=== PATIENT | female | born 1970 | race American Indian/Alaskan Native ===

== ENCOUNTER 2017-01-07 07:40 | Inpatient (IN) | payer MEDICAID ==
[2017-01-07 07:40] VITALS: BMI 17.2
[2017-01-07] MEDS ORDERED: Sodium Chloride 0.9% 1,000 ML IV ONE ×2 (07:57→10:46)
[2017-01-07] MEDS ORDERED: Sodium Chloride 0.9% 1,000 ML ONE ×3 (08:06→12:54)
--- NOTE | 2017-01-07 08:26 | C.PDOC ---
History Of Present Illness 46-year-old female PMHx includes Anemia, Arthritis, CVA, Dementia, Depression, Hypertension, Sickle Cell Disease sent to the emergency department from care home with complaints of severe pain, that begins in abdominal area. Patient notes that pain is similar to her prior sickle cell crises. She denies shortness of breath, nausea/vomiting, diarrhea, fever, cough, chest pain. Time Seen by Provider: 01/07/17 07:46 Chief Complaint (Nursing): Pain, Chronic History Per: Patient History/Exam Limitations: no limitations Current Symptoms Are (Timing): Still Present Severity: Severe Past Medical History Reviewed: Historical Data, Nursing Documentation, Vital Signs Vital Signs: Last Vital Signs Temp 98.2 F 01/09/17 16:00 Pulse 136 H 01/09/17 19:30 Resp 22 01/09/17 19:30 BP 96/63 L 01/09/17 19:20 Pulse Ox 100 01/09/17 21:00 - Medical History PMH: Anemia, Arthritis, CVA, Dementia, Depression, HTN, Pneumonia, Sickle Cell Disease - [facility] Procedures INSERTION OF INFUSION DEVICE INTO R ATRIUM, PERC APPROACH (05/24/16) TRANSFUSE NONAUT RED BLOOD CELLS IN PERIPH VEIN, PERC (05/24/16) ULTRASONOGRAPHY OF RIGHT HEART (05/24/16) Family History: States: No Known Family Hx - Social History Hx Alcohol Use: No Hx Substance Use: No Review Of Systems Except As Marked, All Systems Reviewed And Found Negative. Constitutional: Positive for: Malaise, Other (diffuse body pain). Negative for : Fever, Chills Cardiovascular: Negative for: Chest Pain, Palpitations Respiratory: Negative for: Cough, Shortness of Breath Gastrointestinal: Positive for: Abdominal Pain. Negative for: Nausea, Vomiting , Diarrhea Musculoskeletal: Negative for: Neck Pain, Back Pain Skin: Negative for: Rash Neurological: Negative for: Weakness, Numbness, Headache, Dizziness Physical Exam - Physical Exam Appears: Non-toxic, In Acute Distress (in moderate to severe pain), Chronically Ill, Other (Tearful) Skin: Warm, Dry, No Rash Head: Normacephalic Eye(s): bilateral: Normal Inspection Oral Mucosa: Moist Neck: Normal, Normal ROM Cardiovascular: Rhythm Regular Respiratory: Normal Breath Sounds, No Rales, No Rhonchi, No Wheezing Gastrointestinal/Abdominal: Bowel Sounds, Soft, Tenderness (Mild, diffuse TTP, ( -) Segura's, (-) McBurney's), No Guarding, No Rebound Back: Normal Inspection, No CVA Tenderness Extremity: Normal ROM, No Pedal Edema, No Calf Tenderness, No Deformity Extremity: Bilateral: Atraumatic Pulses: Left Dorsalis Pedis: Normal, Right Dorsalis Pedis: Normal Neurological/Psych: Oriented x3 ED Course And Treatment - Laboratory Results Result Diagrams: 01/09/17 07:47 01/09/17 07:47 ECG: Interpreted By Me, Viewed By Me (sinus rhythm 98 bpm with PACs, normal axis , no acute ST/T wave changes) ECG Interpretation: No Acute Changes O2 Sat by Pulse Oximetry: 100 (RA) Pulse Ox Interpretation: Normal - Radiology CXR: Interpreted by Me, Viewed By Me (no infiltrates/effusions) CXR Interpretation: Yes: No Acute Disease Progress Note: Blood work, EKG, CXR and urine/urine preg ordered and reviewed. Patient given IV NS bolus, PO meds per sickle cell protocol - Dilaudid + benadryl. Multiple attempts made at IV access by me, B/L EJs attempted unasuccessfully. PICC line order entered. Blood drawn by m via arterial stick. Reevaluation Time: 10:20 Reassessment Condition: Unchanged (On reassessment, patient still in significant pain, IV Dilaudid + IV benadryl ordered.) - Physician Consult Information Physician Contacted: Anitha Daugherty Outcome Of Conversation: Discussed patient with PMD, he agrees with admission for sickle cell crisis/severe pain. Critical Care Time - Critical Care Note Total Time (in mins): 35 Documented critical care: time excludes all time spent performing seperately billable procedures. Disposition - Disposition Disposition: HOSPITALIZED Disposition Time: 10:24 Condition: FAIR - Clinical Impression Clinical Impression: Sickle cell pain crisis, Sickle cell disease - Scribe Statement The provider has reviewed the documentation as recorded by the Amy Villarreal All medical record entries made by the Omeroibjose were at my direction and personally dictated by me. I have reviewed the chart and agree that the record accurately reflects my personal performance of the history, physical exam, medical decision making, and the department course for this patient. I have also personally directed, reviewed, and agree with the discharge instructions and disposition. Decision To Admit - Pt Status Changed To: Hospital Disposition Of: Inpatient - Admit Certification Admit to Inpatient:: After my assessment, the patient will require hospitalization for at least two midnights. This is because of the severity of symptoms shown, intensity of services needed, and/or the medical risk in this patient being treated as an outpatient. - InPatient: Physician Admission Certification: I certify that this patient requires 2 or more midnights of care for the following reason:: see notes - . Bed Request Type: Regular Admitting Physician: Anitha Daugherty Patient Diagnosis: Sickle cell pain crisis, Sickle cell disease
[2017-01-07 08:52] LABS: HEMATOCRIT 28.6 % (34.0-47.0); MEAN CORPUSCULAR HEMOGLOBIN 23.4 pg (27.0-31.0); MEAN CORPUSCULAR HGB CONC 31.2 g/dL (33.0-37.0); MEAN PLATELET VOLUME 8.3 fL (7.2-11.7); RED CELL DISTRIBUTION WIDTH 21.6 % (11.5-14.5); WHITE BLOOD COUNT 18.8 K/uL (4.8-10.8)
--- NOTE | 2017-01-07 08:58 | RAD ---
PROCEDURE: CHEST RADIOGRAPH, 1 VIEW HISTORY: Pain COMPARISON: 05/24/2016. FINDINGS: LUNGS: The lungs are clear. PLEURA: No pneumothorax or pleural fluid seen. CARDIOVASCULAR: Normal. OSSEOUS STRUCTURES: There is severe degenerative osteoarthrosis in both glenohumeral joints with large subarticular cystic changes. VISUALIZED UPPER ABDOMEN: Normal. OTHER FINDINGS: None. IMPRESSION: No active pulmonary disease.
[2017-01-07 09:04] LABS: CHLORIDE 105 mmol/L (98-107); POTASSIUM 3.8 mmol/L (3.6-5.2); SODIUM 142 mmol/L (132-148)
[2017-01-07 09:06] LABS: GFR AFRICAN-AMERICAN > 60
[2017-01-07 09:07] LABS: ALKALINE PHOSPHATASE 41 U/L (38-126); ALT/SGPT 113 U/L (9-52); AST/SGOT 69 U/L (14-36); BLOOD UREA NITROGEN 6 mg/dL (7-17); CARBON DIOXIDE 23 mmol/L (22-30); GLUCOSE,RANDOM 122 mg/dL (65-105); TOTAL PROTEIN 8.3 g/dL (6.3-8.3)
[2017-01-07 09:27] LABS: INR 1.1
[2017-01-07 09:43] LABS: EOS # 0.2 K/uL (0.0-0.7); LYMPH # 4.7 K/uL (1.0-4.3); MONO # 1.7 K/uL (0.0-0.8)
[2017-01-07] MEDS ORDERED: DiphenhydrAMINE 50 mg/ml Inj IVP STA ×3 (10:23→15:46)
[2017-01-07] MEDS ORDERED: HYDROmorphone 1 mg/ml ISec IVP STA (10:23)
[2017-01-07] MEDS ORDERED: DiphenhydrAMINE 50 mg/ml Inj ONE (10:25)
[2017-01-07] MEDS ORDERED: Sodium Chloride 0.9% 1,000 ML IV SCH (13:00)
[2017-01-07] MEDS ORDERED: DiphenhydrAMINE 50 mg/ml Inj IVP SCH (16:00)
[2017-01-07] MEDS: DiphenhydrAMINE 50 mg/ml Inj IVP PRN ×2 (16:32→20:35)
[2017-01-07] MEDS ORDERED: Albuterol-Ipratrop 3 mg / 0.5 (3 ml) UD IH PRN (16:49)
[2017-01-07] MEDS: Morphine 30 mg SR Tab PO SCH (17:50)
--- NOTE | 2017-01-07 18:24 | CP.PCM.HP ---
History of Present Illness - History of Present Illness History of Present Illness: 46-year-old female patient with a past medical history of anemia, arthritis, CVA , dementia, hypertension, pneumonia, sickle cell disease sent to the ED from alf with complaint of severe pain, that began in abdominal area. Patient notes that pain is similar to her prior sickle cell crisis. Denies shortness of breath, nausea, vomiting, diarrhea, fever, cough, chest pain. Present on Admission - Present on Admission Any Indicators Present on Admission: No Past Patient History - Past Medical History & Family History Past Medical History?: Yes - Past Social History Smoking Status: Never Smoked - CARDIAC Hx Hypertension: Yes - PULMONARY Hx Pneumonia: Yes - NEUROLOGICAL Hx Dementia: Yes - HEENT Hx HEENT Problems: No - RENAL Hx Chronic Kidney Disease: No - ENDOCRINE/METABOLIC Hx Endocrine Disorders: No - HEMATOLOGICAL/ONCOLOGICAL Hx Anemia: Yes Hx Sickle Cell Disease: Yes - INTEGUMENTARY Hx Dermatological Problems: No - MUSCULOSKELETAL/RHEUMATOLOGICAL Hx Arthritis: Yes - GASTROINTESTINAL Hx Gastrointestinal Disorders: No - GENITOURINARY/GYNECOLOGICAL Hx Genitourinary Disorders: No - PSYCHIATRIC Hx Depression: Yes Hx Substance Use: No - SURGICAL HISTORY Hx Surgeries: Yes Other/Comment: tendon release - ANESTHESIA Hx Anesthesia: Yes Hx Anesthesia Reactions: No Meds Home Medications: Home Medication List Medication Instructions Recorded Confirmed Type Albuterol/Ipratropium [Duoneb 3 3 ml INH RQ6 PRN 01/15/17 Rx mg/0.5 mg (3 ml) UD] Amoxicillin/Clavulanate [Augmentin 1 tab PO Q12H #14 tab 01/15/17 Rx 875 MG-125 MG] Enoxaparin [Lovenox] 40 mg SC DAILY syr 01/15/17 Rx Folic Acid 1 mg PO DAILY tab 01/15/17 Rx HYDROmorphone [Dilaudid] 1 mg IVP Q4H PRN ml 01/15/17 Rx Hydroxyurea [Hydrea] 1,000 mg PO DAILY cap 01/15/17 Rx Pantoprazole [Protonix EC Tab] 40 mg PO DAILY ect 01/15/17 Rx Thiamine [Vitamin B1 Tab] 100 mg PO DAILY tab 01/15/17 Rx fentaNYL 50 mcg/hr [Duragesic 1 patch TD Q72H patch 01/15/17 Rx Patch 50 mcg/hr] Allergies/Adverse Reactions: Allergies Allergy/AdvReac Type Severity Reaction Status Date / Time No Known Allergies Allergy Verified 01/07/17 07:49 Physical Exam - Constitutional Appears: Well - Head Exam Head Exam: ATRAUMATIC, NORMAL INSPECTION, NORMOCEPHALIC - Eye Exam Eye Exam: EOMI, Normal appearance, PERRL Pupil Exam: NORMAL ACCOMODATION, PERRL - ENT Exam ENT Exam: Mucous Membranes Moist, Normal Exam - Neck Exam Neck exam: Positive for: Normal Inspection - Respiratory Exam Respiratory Exam: Decreased Breath Sounds - Cardiovascular Exam Cardiovascular Exam: REGULAR RHYTHM, +S1, +S2 - GI/Abdominal Exam GI & Abdominal Exam: Diminished Bowel Sounds, Soft - Rectal Exam Rectal Exam: Deferred Results - Vital Signs Recent Vital Signs: Last Vital Signs Temp 97.8 F 01/07/17 16:25 Pulse 87 01/07/17 16:25 Resp 20 01/07/17 16:25 BP 128/73 01/07/17 16:25 Pulse Ox 96 01/07/17 16:25 - Labs Result Diagrams: 01/13/17 06:07 01/13/17 06:07 Assessment & Plan (1) Abnormal gamma globulin level Status: Acute (2) Acute chest syndrome due to sickle cell crisis Status: Acute (3) Hip pain Status: Acute (4) Leukocytosis Status: Acute (5) Pneumonia Status: Acute (6) Sickle cell crisis Status: Acute (7) Sickle cell disease Status: Acute (8) Sickle cell pain crisis Status: Acute - Assessment and Plan (Free Text) Plan: Consulting bill collector consulting ID Consultong Route Clerk iv anitbiotics iv pain med folate oxygen saturation watch cbc and monitor pt. closely
[2017-01-07] MEDS: Sodium Chloride 0.9% 1,000 ML IV SCH ×2 (19:30→22:21)
[2017-01-08] MEDS: DiphenhydrAMINE 50 mg/ml Inj IVP PRN ×4 (00:40→13:57)
[2017-01-08] MEDS: Albuterol-Ipratrop 3 mg / 0.5 (3 ml) UD INH SCH ×4 (02:02→19:25)
[2017-01-08] MEDS: Morphine 30 mg SR Tab PO SCH ×2 (06:45→17:41)
[2017-01-08 08:27] LABS: BASO # 0.1 K/uL (0.0-0.2); BASO % 0.7 % (0.0-2.0); EOS % 0.2 % (0.0-4.0); HEMATOCRIT 29.3 % (34.0-47.0); LYMPH # 0.7 K/uL (1.0-4.3); MEAN CORPUSCULAR HEMOGLOBIN 23.1 pg (27.0-31.0); MEAN CORPUSCULAR HGB CONC 30.4 g/dL (33.0-37.0); MEAN PLATELET VOLUME 8.3 fL (7.2-11.7); MONO # 2.2 K/uL (0.0-0.8); MONO % 11.7 % (0.0-10.0); PLATELET COUNT 348 K/uL (130-400); RED CELL DISTRIBUTION WIDTH 22.4 % (11.5-14.5); WHITE BLOOD COUNT 18.4 K/uL (4.8-10.8)
[2017-01-08] MEDS ORDERED: MEMANTINE HCL 14 MG PO SCH (10:00)
[2017-01-08 12:21] LABS: NEUTROPHIL 77 % (50-75); NUCLEATED RED BLOOD CELL 28 % (0-0); TOTAL CELLS COUNTED 100
[2017-01-08] MEDS: Sodium Chloride 0.9% 1,000 ML IV SCH (12:57)
--- NOTE | 2017-01-08 16:29 | CP.PCM.PN ---
Subjective - Date & Time of Evaluation Date of Evaluation: 01/08/17 Time of Evaluation: 13:40 - Subjective Subjective: clinically same Objective - Vital Signs/Intake and Output Vital Signs (last 24 hours): Temp Pulse Resp BP Pulse Ox 98.4 F 100 H 20 120/78 97 01/08/17 08:29 01/08/17 08:29 01/08/17 08:29 01/08/17 08:29 01/08/17 08:29 Intake and Output: 01/08/17 01/08/17 06:59 18:59 Intake Total 1180 Balance 1180 - Medications Medications: Current Medications Albuterol/Ipratropium (Duoneb 3 Mg/0.5 Mg (3 Ml) Ud) 3 ml INH RQ6 [facility] Last Admin: 01/08/17 14:29 Dose: 3 ml Ascorbic Acid (Vitamin C 500 Mg Tab) 500 mg PO DAILY [facility] Last Admin: 01/08/17 09:52 Dose: 500 mg Diphenhydramine HCl (Benadryl) 25 mg IVP Q4 PRN PRN Reason: Itching / Pruritus Last Admin: 01/08/17 13:57 Dose: 25 mg Donepezil HCl (Aricept) 10 mg PO HS [facility] Last Admin: 01/07/17 22:19 Dose: 10 mg Fentanyl (Duragesic) 1 patch TD Q72H [facility] Folic Acid (Folic Acid) 1 mg PO DAILY [facility] Last Admin: 01/08/17 09:52 Dose: 1 mg Hydromorphone HCl (Dilaudid) 3 mg IVP Q4H PRN PRN Reason: Pain, severe (8-10) Last Admin: 01/08/17 13:58 Dose: 3 mg Sodium Chloride (Sodium Chloride 0.9%) 1,000 mls @ 60 mls/hr IV .[id number] [facility] Last Admin: 01/08/17 12:57 Dose: 60 mls/hr Morphine Sulfate (Morphine Extended Release Tab) 60 mg PO Q12H [facility] Last Admin: 01/08/17 06:45 Dose: 60 mg Pneumococcal Polyvalent Vaccine (Pneumovax 23 Vaccine) 0.5 ml IM .ONCE ONE Stop: 01/09/17 10:01 Prednisone (Prednisone Tab) 5 mg PO DAILY [facility] Last Admin: 01/08/17 12:56 Dose: 5 mg Sennosides (Senokot Tab) 8.6 mg PO HS [facility] Last Admin: 01/07/17 22:19 Dose: 8.6 mg - Labs Labs: 01/08/17 07:47 PT 13.0 SECONDS (9.7-12.2) H 01/07/17 09:12 INR 1.1 01/07/17 09:12 APTT 28 SECONDS (21-34) 01/07/17 09:12 - Constitutional Appears: Well - Head Exam Head Exam: ATRAUMATIC, NORMAL INSPECTION, NORMOCEPHALIC - Eye Exam Eye Exam: EOMI, Normal appearance, PERRL Pupil Exam: NORMAL ACCOMODATION, PERRL - ENT Exam ENT Exam: Mucous Membranes Moist, Normal Exam - Neck Exam Neck Exam: Full ROM, Normal Inspection. absent: Lymphadenopathy - Respiratory Exam Respiratory Exam: Decreased Breath Sounds - Cardiovascular Exam Cardiovascular Exam: REGULAR RHYTHM, +S1, +S2 - GI/Abdominal Exam GI & Abdominal Exam: Soft, Diminished Bowel Sounds - Rectal Exam Rectal Exam: Deferred Assessment and Plan - Assessment and Plan (Free Text) Plan: iv pain med folate oxygen saturation watch cbc an dmonotr pt clsely rosy same followupwith consultation s
[2017-01-09] MEDS ORDERED: cefTRIAXone IV 1 gm in Dextros 50 ML IVPB ONE (00:14)
[2017-01-09] MEDS: DiphenhydrAMINE 50 mg/ml Inj IVP PRN ×2 (02:36→06:52)
[2017-01-09] MEDS: Albuterol-Ipratrop 3 mg / 0.5 (3 ml) UD INH SCH ×4 (02:37→19:28)
[2017-01-09] MEDS ORDERED: HYDROmorphone 1 mg/ml ISec IVP STA (06:40)
[2017-01-09] MEDS: Morphine 30 mg SR Tab PO SCH ×2 (06:53→17:53)
--- NOTE | 2017-01-09 07:33 | CP.PCM.PN ---
Addendum entered and electronically signed by Licha Prado DO 01/09/17 10:21 : 1015 rapid response called for second time for tachycardia. BP was 134/83. Patient's HR was 170, sinus rhythm. The patient was given Cardizem 5mg IVP at 1022. Patient was AAOx3 and states that she can't feel her heart racing. Another 2L bolus of NS was started. Retail Sales Consultant was called and accepted patient to ICU at 1023. Another Cardizem 5mg IVP was given at 1025 after the patient's hr did not decrease. At 1026 the patient's HR was 165, not responding to cardizem. BP was 117/82. At 1027 the patient was given cardizem 10mg IVP. ABG stat ordered. Original Note: <Jenny Retana - Last Filed: 01/09/17 08:16> Subjective - Date & Time of Evaluation Date of Evaluation: 01/09/17 Time of Evaluation: 07:20 - Subjective Subjective: Rapid response called for this 46 year old female admitted on 01/06/17 for sick cell crisis for elevated HR. Patient reports she is having chest pain this AM. Patient reports she in not short of breath at this time., Vitals on arrival of ROVING TECHNICIAN team were 119/80, HR 172, O2 96% on NC 3L, Temp 99.4. She was given tylenol at 6:30 am for fever of [address] Danya Daugherty was called overnight for fever and ordered blood cultures which were submitted. After review of yesterday's labs and chart review patient's elevated WBC was noted. CXR was concerning for venous congestions and possible infectious process. During rapid patient was ordered for stat EKG, WILIAM, CXR, CMP, CBC, VBG shock, procalcitonin, and 2 liters of NS bolus. Additional septic workup included UA and Urine cultures. Patient was also ordered for CTA PE protocol being that the patient is tachycardic and she does not ambulate at baseline. However, CTA is contraindicated due to sickle cell crisis, will order V/Q scan since patient is high risk. Patient not on DVT prophylaxis. Will start therapeutic Lovenox as per Dr. Lopez due to patient's high risk. Impression: Sinus tahcycardia likely secondary to sepsis, sickle cell crisis, suspect PE. As per Dr. Lopez, patient to be transfused 1 unit of PRBC. Consent was given by patient who is alert and oriented X3. Patient's Rocephin was discontinued and patient was started on Vanco and Primaxin IVPB stat. Patient was transferred to telemetry for close monitoring. She was also ordered for an additional 2 mg of Dilaudid stat since she was in pain. EKG showed sinus tach [address]pm. [address] reviewed by Dr. Lopez with Lactid Acid of 1.0 and K+ 3.1. Patient's potassium was replaced as per Dr. Lopez. Patient is not acidotic at this time. ID consult is already on board. Will call Dr. Dobbins and Dr. Daugherty to update. f/u 3 hour lactic acid ordered- TIMED for 10:30 pm. Physical: GEN: in no acute distress, but in pain and diaphoretic. Pulm: CTABL. Cardio: Tahcycardia, S1, S2 present Abdomen: soft, NT, ND Extremities: extremities are tender. Ryland Retana, PGY 2 Objective - Vital Signs/Intake and Output Vital Signs (last 24 hours): Temp Pulse Resp BP Pulse Ox 99.4 F 174 H 20 119/80 95 01/09/17 07:24 01/09/17 07:24 01/09/17 07:24 01/09/17 07:24 01/09/17 07:24 - Medications Medications: Current Medications Albuterol/Ipratropium (Duoneb 3 Mg/0.5 Mg (3 Ml) Ud) 3 ml INH RQ6 [facility] Last Admin: 01/09/17 02:37 Dose: Not Given Ascorbic Acid (Vitamin C 500 Mg Tab) 500 mg PO DAILY [facility] Last Admin: 01/08/17 09:52 Dose: 500 mg Diphenhydramine HCl (Benadryl) 25 mg IVP Q4 PRN PRN Reason: Itching / Pruritus Last Admin: 01/09/17 06:52 Dose: 25 mg Donepezil HCl (Aricept) 10 mg PO HS [facility] Last Admin: 01/08/17 21:48 Dose: 10 mg Fentanyl (Duragesic) 1 patch TD Q72H [facility] Last Admin: 01/09/17 07:02 Dose: 1 patch Folic Acid (Folic Acid) 1 mg PO DAILY [facility] Last Admin: 01/08/17 09:52 Dose: 1 mg Hydromorphone HCl (Dilaudid) 3 mg IVP Q4H PRN PRN Reason: Pain, severe (8-10) Last Admin: 01/09/17 06:55 Dose: 3 mg Hydromorphone HCl (Dilaudid) 2 mg IVP STAT STA Stop: 01/09/17 07:31 Sodium Chloride (Sodium Chloride 0.9%) 1,000 mls @ 60 mls/hr IV .[id number] [facility] Last Admin: 01/08/17 12:57 Dose: 60 mls/hr Ceftriaxone Sodium (Rocephin Iv 1 Gm Duplex) 50 mls @ 200 mls/hr IVPB DAILY [facility] Morphine Sulfate (Morphine Extended Release Tab) 60 mg PO Q12H [facility] Last Admin: 01/09/17 06:53 Dose: 60 mg Pneumococcal Polyvalent Vaccine (Pneumovax 23 Vaccine) 0.5 ml IM .ONCE ONE Stop: 01/09/17 10:01 Prednisone (Prednisone Tab) 5 mg PO DAILY [facility] Last Admin: 01/08/17 12:56 Dose: 5 mg Sennosides (Senokot Tab) 8.6 mg PO HS [facility] Last Admin: 01/08/17 21:48 Dose: 8.6 mg - Labs Labs: 01/08/17 07:47 PT 13.0 SECONDS (9.7-12.2) H 01/07/17 09:12 INR 1.1 01/07/17 09:12 APTT 28 SECONDS (21-34) 01/07/17 09:12 <Alexys Lopez H - Last Filed: 01/09/17 16:12> Objective - Vital Signs/Intake and Output Vital Signs (last 24 hours): Temp Pulse Resp BP Pulse Ox 99.6 F 158 H 23 122/69 94 L 01/09/17 11:00 01/09/17 15:00 01/09/17 15:00 01/09/17 15:00 01/09/17 15:00 Intake and Output: 01/09/17 01/09/17 06:59 18:59 Intake Total 2550 Output Total 2400 Balance 150 - Medications Medications: Current Medications Albuterol/Ipratropium (Duoneb 3 Mg/0.5 Mg (3 Ml) Ud) 3 ml INH RQ6 [facility] Last Admin: 01/09/17 13:22 Dose: Not Given Ascorbic Acid (Vitamin C 500 Mg Tab) 500 mg PO DAILY [facility] Last Admin: 01/09/17 13:23 Dose: 500 mg Diltiazem HCl (Cardizem) 5 mg IVP Q5M PRN PRN Reason: Heart rate Diphenhydramine HCl (Benadryl) 25 mg IVP Q4 PRN PRN Reason: Itching / Pruritus Last Admin: 01/09/17 06:52 Dose: 25 mg Donepezil HCl (Aricept) 10 mg PO HS [facility] Last Admin: 01/08/17 21:48 Dose: 10 mg Fentanyl (Duragesic) 1 patch TD Q72H [facility] Last Admin: 01/09/17 07:02 Dose: 1 patch Folic Acid (Folic Acid) 1 mg PO DAILY [facility] Last Admin: 01/09/17 09:55 Dose: Not Given Hydromorphone HCl (Dilaudid) 3 mg IVP Q4H PRN PRN Reason: Pain, severe (8-10) Last Admin: 01/09/17 06:55 Dose: 3 mg Hydroxyurea (Hydrea) 1,000 mg PO DAILY [facility] Vancomycin HCl 1 gm/ Sodium (Chloride) 250 mls @ 166.7 mls/hr IVPB DAILY [facility] Last Admin: 01/09/17 13:24 Dose: 166.7 mls/hr Piperacillin Sod/Tazobactam Sod (Zosyn 3.375 Gm Iv Premix) 3.375 gm in 50 mls @ 100 mls/hr IVPB Q6H [facility] Last Admin: 01/09/17 13:29 Dose: 100 mls/hr Sodium Chloride (Sodium Chloride 0.9%) 1,000 mls @ 1,000 mls/hr IV .Q1H [facility] Last Admin: 01/09/17 12:00 Dose: 1,000 mls/hr Sodium Chloride (Sodium Chloride 0.9%) 1,000 mls @ 150 mls/hr IV .Q6H40M [facility] Last Admin: 01/09/17 13:26 Dose: 150 mls/hr Morphine Sulfate (Morphine Extended Release Tab) 60 mg PO Q12H [facility] Last Admin: 01/09/17 06:53 Dose: 60 mg Prednisone (Prednisone Tab) 5 mg PO DAILY [facility] Last Admin: 01/09/17 10:00 Dose: Not Given Sennosides (Senokot Tab) 8.6 mg PO HS [facility] Last Admin: 01/08/17 21:48 Dose: 8.6 mg Thiamine HCl (Vitamin B1 Tab) 100 mg PO DAILY [facility] Last Admin: 01/09/17 10:00 Dose: 100 mg - Labs Labs: 01/09/17 07:47 01/09/17 07:47 PT 13.0 SECONDS (9.7-12.2) H 01/07/17 09:12 INR 1.1 01/07/17 09:12 APTT 28 SECONDS (21-34) 01/07/17 09:12 Attending/Attestation - Attestation I have personally seen and examined this patient.: Yes I have fully participated in the care of the patient.: Yes I have reviewed all pertinent clinical information, including history, physical exam and plan: Yes Notes (Text): 01/09/17 16:05 Medical Hospitalist: Patient was seen during both heel seat trimmer. The first ROVING TECHNICIAN on 3T the patient had sustained sinus tachy cardia in the 150 to 160 valery. As mentioned above in the resident note the patient had a ayala started, 2 liter bolus as well as pain medication and stat lab work. We wanted to get a CTA to assess for PE however were told this was not possible due to her having sickle cell disease. VQ was done and suggested low probability. Also her abx were changed since she was on rocpehin to be vancomycin and primaxin. There was not a UA or UC so these were aquired after ayala was placed. Later she had a nother ROVING TECHNICIAN after being moved to telemetry floor. Her HR was still tachycardic and this time her SpO2 was lower and also lower BP. She was given several IVP cardizem however this did not affect her HR. We did not want to make BP lower, ICU was reached and she was moved to ICU bed 6 for further monitoring and care. Impression: Sepsis (source not clear) IVF, boluses, abx were changed, ayala started Sickle Cell (type and cross and transfusion) High risk for PE, not on anticoagulation thank you Alexys Lopez
[2017-01-09] MEDS ORDERED: Sodium Chloride 0.9% 1,000 ML IV ONE ×4 (07:44→10:45)
[2017-01-09 07:48] LABS: VENOUS BLOOD GAS BASE EXCESS -1.7 mmol/L (0.0-2.0); VENOUS BLOOD GAS PCO2 34 mmHg (40-60); VENOUS BLOOD PH 7.42 (7.32-7.43)
[2017-01-09 07:50] LABS: HEMATOCRIT 26.2 % (34.0-47.0); MEAN CELL VOLUME 74.1 fL (81.0-99.0); MEAN CORPUSCULAR HEMOGLOBIN 23.3 pg (27.0-31.0); MEAN CORPUSCULAR HGB CONC 31.5 g/dL (33.0-37.0); RED CELL DISTRIBUTION WIDTH 21.7 % (11.5-14.5); WHITE BLOOD COUNT 24.4 K/uL (4.8-10.8)
[2017-01-09 07:57] LABS: PLATELET COUNT 177 K/uL (130-400)
[2017-01-09 08:06] LABS: CHLORIDE 104 mmol/L (98-107)
[2017-01-09 08:07] LABS: POTASSIUM 3.5 mmol/L (3.6-5.2); SODIUM 138 mmol/L (132-148)
[2017-01-09 08:09] LABS: ALB/GLOB RATIO 0.9 (1.0-2.1); ALKALINE PHOSPHATASE 96 U/L (38-126); AST/SGOT 76 U/L (14-36); BILIRUBIN,TOTAL 1.2 mg/dL (0.2-1.3); BLOOD UREA NITROGEN 11 mg/dL (7-17); CARBON DIOXIDE 25 mmol/L (22-30); GFR AFRICAN-AMERICAN > 60; TOTAL PROTEIN 6.6 g/dL (6.3-8.3)
[2017-01-09 08:10] LABS: ALT/SGPT 87 U/L (9-52); CALCIUM 8.1 mg/dl (8.6-10.4); GLUCOSE,RANDOM 112 mg/dL (65-105)
[2017-01-09 08:26] LABS: RBC URINE 1 /hpf (0-3); URINE BACTERIA RARE (<OCC); URINE BILIRUBIN NEGATIVE (NEGATIVE); URINE BLOOD NEGATIVE (NEGATIVE); URINE COLOR Yellow (YELLOW); URINE GLUCOSE (UA) NORMAL (Normal); URINE HYALINE CAST 0-2 /lpf (0-2); URINE KETONE NEGATIVE (NEGATIVE); URINE LEUKOCYTE ESTERASE NEG Leu/uL (Negative); URINE PROTEIN 2+ mg/dL (NEGATIVE); URINE UROBILINOGEN NORMAL mg/dL (0.2-1.0); WBC URINE 2 /hpf (0-5)
--- NOTE | 2017-01-09 09:10 | CP.PCM.PN ---
Subjective - Date & Time of Evaluation Date of Evaluation: 01/09/17 Time of Evaluation: 09:40 - Subjective Subjective: clinically same Objective - Vital Signs/Intake and Output Vital Signs (last 24 hours): Temp Pulse Resp BP Pulse Ox 99.4 F 174 H 20 119/80 95 01/09/17 07:24 01/09/17 07:24 01/09/17 07:24 01/09/17 07:24 01/09/17 07:24 - Medications Medications: Current Medications Albuterol/Ipratropium (Duoneb 3 Mg/0.5 Mg (3 Ml) Ud) 3 ml INH RQ6 [facility] Last Admin: 01/09/17 02:37 Dose: Not Given Ascorbic Acid (Vitamin C 500 Mg Tab) 500 mg PO DAILY [facility] Last Admin: 01/08/17 09:52 Dose: 500 mg Diphenhydramine HCl (Benadryl) 25 mg IVP Q4 PRN PRN Reason: Itching / Pruritus Last Admin: 01/09/17 06:52 Dose: 25 mg Donepezil HCl (Aricept) 10 mg PO HS [facility] Last Admin: 01/08/17 21:48 Dose: 10 mg Enoxaparin Sodium (Lovenox) 45 mg SC Q12 [facility] Fentanyl (Duragesic) 1 patch TD Q72H [facility] Last Admin: 01/09/17 07:02 Dose: 1 patch Folic Acid (Folic Acid) 1 mg PO DAILY [facility] Last Admin: 01/08/17 09:52 Dose: 1 mg Hydromorphone HCl (Dilaudid) 3 mg IVP Q4H PRN PRN Reason: Pain, severe (8-10) Last Admin: 01/09/17 06:55 Dose: 3 mg Sodium Chloride (Sodium Chloride 0.9%) 1,000 mls @ 60 mls/hr IV .[id number] [facility] Last Admin: 01/08/17 12:57 Dose: 60 mls/hr Imipenem/Cilastatin Sodium 500 (mg/ Sodium Chloride) 100 mls @ 100 mls/hr IVPB Q6H [facility] Vancomycin HCl 1 gm/ Sodium (Chloride) 250 mls @ 166.7 mls/hr IVPB DAILY [facility] Potassium Chloride (Potassium Chloride 20 Meq/100 Ml) 20 meq in 100 mls @ 50 mls/hr IVPB ONCE ONE Stop: 01/09/17 10:29 Morphine Sulfate (Morphine Extended Release Tab) 60 mg PO Q12H [facility] Last Admin: 01/09/17 06:53 Dose: 60 mg Pneumococcal Polyvalent Vaccine (Pneumovax 23 Vaccine) 0.5 ml IM .ONCE ONE Stop: 01/09/17 10:01 Prednisone (Prednisone Tab) 5 mg PO DAILY [facility] Last Admin: 01/08/17 12:56 Dose: 5 mg Sennosides (Senokot Tab) 8.6 mg PO HS [facility] Last Admin: 01/08/17 21:48 Dose: 8.6 mg Thiamine HCl (Vitamin B1 Tab) 100 mg PO DAILY [facility] - Labs Labs: 01/09/17 07:47 01/09/17 07:47 PT 13.0 SECONDS (9.7-12.2) H 01/07/17 09:12 INR 1.1 01/07/17 09:12 APTT 28 SECONDS (21-34) 01/07/17 09:12 - Constitutional Appears: Well - Head Exam Head Exam: ATRAUMATIC, NORMAL INSPECTION, NORMOCEPHALIC - Eye Exam Eye Exam: EOMI, Normal appearance, PERRL Pupil Exam: NORMAL ACCOMODATION, PERRL - ENT Exam ENT Exam: Mucous Membranes Moist, Normal Exam - Neck Exam Neck Exam: Full ROM, Normal Inspection. absent: Lymphadenopathy - Respiratory Exam Respiratory Exam: Decreased Breath Sounds - Cardiovascular Exam Cardiovascular Exam: REGULAR RHYTHM, +S1, +S2 - GI/Abdominal Exam GI & Abdominal Exam: Soft, Diminished Bowel Sounds - Rectal Exam Rectal Exam: Deferred Assessment and Plan - Assessment and Plan (Free Text) Plan: Consulting mat linker consulting ID Consultong Industrial Spray Painter V/Q scan negative for PE iv anitbiotics iv pain med folate oxygen saturation watch cbc and monitor pt. closely
[2017-01-09] MEDS ORDERED: Enoxaparin 60 mg Syringe SC SCH (10:00)
[2017-01-09] MEDS ORDERED: cefTRIAXone IV 1 gm in Dextros 50 ML IVPB SCH (10:00)
[2017-01-09] MEDS ORDERED: Pneumococcal 23-Valent Vaccine IM ONE (10:00)
[2017-01-09 10:48] LABS: ABG ALLEN TEST POS; DRAW SITE RR
--- NOTE | 2017-01-09 10:55 | NM ---
COMPARISON: January 09, 2017. Portable study 08:00 single-view chest TECHNIQUE: 8.3 mCi technetium 99-m Xe-133 Gas. 4.8 mCI technetium 99-m MAA administered intravenously. FINDINGS: VENTILATION COMPONENT: Heterogeneous ventilation. Area diminished ventilation right upper lobe subsegmental. PERFUSION COMPONENT: Matching perfusion defects right upper lobe. IMPRESSION: Low probability ventilation perfusion scan for pulmonary embolism.
[2017-01-09] MEDS ORDERED: HEPARIN-NS 5,000 UNITS/500 ML 5,000 UNIT/500 ML BAG IV ONE (10:56)
[2017-01-09] MEDS: Sodium Chloride 0.9% 1,000 ML IV SCH ×9 (11:00→21:23)
[2017-01-09 11:04] LABS: LYMPH # 1.2 K/uL (1.0-4.3)
[2017-01-09 11:05] LABS: EOS # 0.3 K/uL (0.0-0.7); MONO # 0.5 K/uL (0.0-0.8)
[2017-01-09 11:08] LABS: MYELOCYTE 1 % (0-0); NEUTROPHIL 86 % (50-75); NUCLEATED RED BLOOD CELL 11 % (0-0); TOTAL CELLS COUNTED 100
--- NOTE | 2017-01-09 11:08 | RAD ---
HISTORY: Chest pain. Portable study 08:00 COMPARISON: 01/07/2017. Atelectatic changes at both lung bases. FINDINGS: LUNGS: No active pulmonary disease. PLEURA: No significant pleural effusion identified, no pneumothorax apparent. CARDIOVASCULAR: No radiographic findings to suggest acute or significant cardiovascular disease. OSSEOUS STRUCTURES: Evidence of osteonecrosis both shoulder/proximal humeri. VISUALIZED UPPER ABDOMEN: Normal. OTHER FINDINGS: None. IMPRESSION: Bilateral lower lobe infiltrates/atelectasis.
--- NOTE | 2017-01-09 11:09 | CP.PCM.CON ---
History of Present Illness - History of Present Illness History of Present Illness: 46-year-old female, PMHx includes Anemia, Arthritis, CVA, Dementia, Depression, Hypertension, Sickle Cell Disease. Presents with pain typical of her sickle cell crisis. Patient was admitted to [facility] but became severely tachycardic and hypoxic, not on Lovenox. Most likely PE. Transferred to ICU for further management. Review of Systems - Review of Systems All systems: reviewed and no additional remarkable complaints except - Musculoskeletal Additional comments: leg pain Past Patient History - Past Medical History & Family History Past Medical History?: Yes - Past Social History Smoking Status: Never Smoked - CARDIAC Hx Hypertension: Yes - PULMONARY Hx Pneumonia: Yes - NEUROLOGICAL Hx Dementia: Yes - HEENT Hx HEENT Problems: No - RENAL Hx Chronic Kidney Disease: No - ENDOCRINE/METABOLIC Hx Endocrine Disorders: No - HEMATOLOGICAL/ONCOLOGICAL Hx Anemia: Yes Hx Sickle Cell Disease: Yes - INTEGUMENTARY Hx Dermatological Problems: No - MUSCULOSKELETAL/RHEUMATOLOGICAL Hx Falls: No - GASTROINTESTINAL Hx Gastrointestinal Disorders: No - GENITOURINARY/GYNECOLOGICAL Hx Genitourinary Disorders: No - PSYCHIATRIC Hx Depression: Yes Hx Substance Use: No - SURGICAL HISTORY Hx Surgeries: Yes Other/Comment: tendon release,hip surgery - ANESTHESIA Hx Anesthesia: Yes Hx Anesthesia Reactions: No Meds Allergies/Adverse Reactions: Allergies Allergy/AdvReac Type Severity Reaction Status Date / Time No Known Allergies Allergy Verified 01/07/17 07:49 - Medications Medications: Current Medications Albuterol/Ipratropium (Duoneb 3 Mg/0.5 Mg (3 Ml) Ud) 3 ml INH RQ6 [facility] Last Admin: 01/09/17 02:37 Dose: Not Given Ascorbic Acid (Vitamin C 500 Mg Tab) 500 mg PO DAILY [facility] Last Admin: 01/08/17 09:52 Dose: 500 mg Diltiazem HCl (Cardizem) 5 mg IVP Q5M PRN PRN Reason: Heart rate Diphenhydramine HCl (Benadryl) 25 mg IVP Q4 PRN PRN Reason: Itching / Pruritus Last Admin: 01/09/17 06:52 Dose: 25 mg Donepezil HCl (Aricept) 10 mg PO HS [facility] Last Admin: 01/08/17 21:48 Dose: 10 mg Enoxaparin Sodium (Lovenox) 45 mg SC Q12 [facility] Fentanyl (Duragesic) 1 patch TD Q72H [facility] Last Admin: 01/09/17 07:02 Dose: 1 patch Folic Acid (Folic Acid) 1 mg PO DAILY [facility] Last Admin: 01/08/17 09:52 Dose: 1 mg Heparin Sodium (Porcine) (Heparin) 4,200 units 80 units/kg (4200 units) IV ONCE ONE Stop: 01/09/17 10:57 Hydromorphone HCl (Dilaudid) 3 mg IVP Q4H PRN PRN Reason: Pain, severe (8-10) Last Admin: 01/09/17 06:55 Dose: 3 mg Sodium Chloride (Sodium Chloride 0.9%) 1,000 mls @ 60 mls/hr IV .[id number] [facility] Last Admin: 01/08/17 12:57 Dose: 60 mls/hr Vancomycin HCl 1 gm/ Sodium (Chloride) 250 mls @ 166.7 mls/hr IVPB DAILY [facility] Sodium Chloride (Sodium Chloride 0.9%) 1,000 mls @ 1,000 mls/hr IV .Q1H ONE Stop: 01/09/17 11:44 Sodium Chloride (Sodium Chloride 0.9%) 1,000 mls @ 1,000 mls/hr IV .Q1H ONE Stop: 01/09/17 11:44 Piperacillin Sod/Tazobactam Sod (Zosyn 3.375 Gm Iv Premix) 3.375 gm in 50 mls @ 100 mls/hr IVPB Q6H [facility] Sodium Chloride (Sodium Chloride 0.9%) 1,000 mls @ 1,000 mls/hr IV .Q1H [facility] HEPARIN-NS 5,000 UNITS/500 ML (Heparin-Ns 5,000 Units/500 Ml) 5,000 unit in 500 mls @ IV ONCE ONE; 18 ML/KG/HR PRN Reason: Protocol Stop: 01/09/17 10:57 Morphine Sulfate (Morphine Extended Release Tab) 60 mg PO Q12H [facility] Last Admin: 01/09/17 06:53 Dose: 60 mg Prednisone (Prednisone Tab) 5 mg PO DAILY [facility] Last Admin: 01/08/17 12:56 Dose: 5 mg Sennosides (Senokot Tab) 8.6 mg PO HS [facility] Last Admin: 01/08/17 21:48 Dose: 8.6 mg Thiamine HCl (Vitamin B1 Tab) 100 mg PO DAILY [facility] Physical Exam - Head Exam Head Exam: ATRAUMATIC, NORMAL INSPECTION, NORMOCEPHALIC - Eye Exam Eye Exam: EOMI - ENT Exam ENT Exam: Mucous Membranes Moist - Respiratory Exam Respiratory Exam: Clear to Auscultation Bilateral Additional comments: tachypnea - Cardiovascular Exam Cardiovascular Exam: Tachycardia - GI/Abdominal Exam GI & Abdominal Exam: Normal Bowel Sounds. absent: Distended, Tenderness - Neurological Exam Neurological exam: Alert, Oriented x3 Additional comments: right hemiplegia Results - Vital Signs Recent Vital Signs: Last Vital Signs Temp 99.4 F 01/09/17 07:24 Pulse 174 H 01/09/17 07:24 Resp 20 01/09/17 07:24 BP 119/80 01/09/17 07:24 Pulse Ox 95 01/09/17 07:24 - Labs Result Diagrams: 01/09/17 07:47 01/09/17 07:47 Labs: Laboratory Results - last 24 hr 01/08/17 01/09/17 01/09/17 07:47 07:44 07:47 WBC 24.4 H RBC 3.53 L Hgb 8.2 L Hct 26.2 L MCV 74.1 L MCH 23.3 L MCHC 31.5 L RDW 21.7 H Plt Count 177 D MPV 9.0 Neutrophils % (Manual) 77 H Lymphocytes % (Manual) 10 L Monocytes % (Manual) 13 H Nucleated RBC % 28 H Platelet Estimate Normal Polychromasia Slight Hypochromasia (manual) Moderate Poikilocytosis (manual Slight Anisocytosis (manual) Slight Microcytosis (manual) Slight Macrocytosis (manual) Slight Target Cells Moderate Ovalocytes Slight [place] Cells Slight Puncture Site pCO2 pO2 53 HCO3 ABG pH ABG Total CO2 ABG O2 Saturation ABG Base Excess Curtis Test ABG Potassium VBG pH 7.42 VBG pCO2 34 L VBG HCO3 23.3 VBG Total CO2 23.1 VBG O2 Sat (Calc) 91.0 H VBG Base Excess -1.7 L VBG Potassium 3.1 L A-a O2 Difference Respiratory Index Sodium 141.0 Chloride 113.0 H Glucose 108 H Lactate 1.0 Liter Flow FiO2 Potassium Carbon Dioxide Anion Gap BUN Creatinine Est GFR ( Amer) Est GFR (Non-Af Amer) Random Glucose Calcium Total Bilirubin AST ALT Alkaline Phosphatase Total Creatine Kinase CK-MB (Mass) Troponin I, Quant Total Protein Albumin Globulin Albumin/Globulin Ratio Arterial Blood Potassium Venous Blood Potassium 3.1 L Urine Color Urine Clarity Urine pH Ur Specific [place] Urine Protein Urine Glucose (UA) Urine Ketones Urine Blood Urine Nitrate Urine Bilirubin Urine Urobilinogen Ur Leukocyte Esterase Urine WBC (Auto) Urine RBC (Auto) Urine WBC Clumps (Auto) Ur Squamous Epith Cells Ur Transition Epith Cell Ur Renal Epithelial Cell Calcium Carbonate Cryst Calcium Phos Noreen (Auto) Calcium Oxalate Crystal Leucine Crystals Cystine Crystals Uric Acid Crystals Triple Phos Crystals Tyrosine Crystals Other Crystals Amorphous Sediment Urine Bacteria Epithelial Casts (Auto) Fatty Casts Hyaline Casts Granular Casts (Auto) Waxy Casts Broad Casts RBC Casts WBC Casts Other Casts Urine Trichomonas Ur Yeast w Hyphae Urine Yeast (Budding) Urine Sperm (Auto) Ur Oval Fat Bodies Auto Urine HCG, Qual 01/09/17 01/09/17 01/09/17 07:47 08:12 08:33 WBC RBC Hgb Hct MCV MCH MCHC RDW Plt Count MPV Neutrophils % (Manual) Lymphocytes % (Manual) Monocytes % (Manual) Nucleated RBC % Platelet Estimate Polychromasia Hypochromasia (manual) Poikilocytosis (manual Anisocytosis (manual) Microcytosis (manual) Macrocytosis (manual) Target Cells Ovalocytes [place] Cells Puncture Site pCO2 pO2 HCO3 ABG pH ABG Total CO2 ABG O2 Saturation ABG Base Excess Curtis Test ABG Potassium VBG pH VBG pCO2 VBG HCO3 VBG Total CO2 VBG O2 Sat (Calc) VBG Base Excess VBG Potassium A-a O2 Difference Respiratory Index Sodium 138 Chloride 104 Glucose Lactate Liter Flow FiO2 Potassium 3.5 L Carbon Dioxide 25 Anion Gap 13 BUN 11 Creatinine 0.6 L Est GFR ( Amer) > 60 Est GFR (Non-Af Amer) > 60 Random Glucose 112 H Calcium 8.1 L Total Bilirubin 1.2 AST 76 H ALT 87 H D Alkaline Phosphatase 96 Total Creatine Kinase 125 CK-MB (Mass) 0.45 Troponin I, Quant 0.0920 Total Protein 6.6 Albumin 3.2 L D Globulin 3.5 Albumin/Globulin Ratio 0.9 L Arterial Blood Potassium Venous Blood Potassium Urine Color Yellow Cancelled Urine Clarity Clear Cancelled Urine pH 5.0 Cancelled Ur Specific [place] 1.012 Cancelled Urine Protein 2+ H Cancelled Urine Glucose (UA) Normal Cancelled Urine Ketones Negative Cancelled Urine Blood Negative Cancelled Urine Nitrate Negative Cancelled Urine Bilirubin Negative Cancelled Urine Urobilinogen Normal Cancelled Ur Leukocyte Esterase Neg Cancelled Urine WBC (Auto) 2 Cancelled Urine RBC (Auto) 1 Cancelled Urine WBC Clumps (Auto) Cancelled Ur Squamous Epith Cells < 1 Cancelled Ur Transition Epith Cell Cancelled Ur Renal Epithelial Cell Cancelled Calcium Carbonate Cryst Cancelled Calcium Phos Noreen (Auto) Cancelled Calcium Oxalate Crystal Cancelled Leucine Crystals Cancelled Cystine Crystals Cancelled Uric Acid Crystals Cancelled Triple Phos Crystals Cancelled Tyrosine Crystals Cancelled Other Crystals Cancelled Amorphous Sediment Cancelled Urine Bacteria Rare Cancelled Epithelial Casts (Auto) Cancelled Fatty Casts Cancelled Hyaline Casts 0-2 Cancelled Granular Casts (Auto) Cancelled Waxy Casts Cancelled Broad Casts Cancelled RBC Casts Cancelled WBC Casts Cancelled Other Casts Cancelled Urine Trichomonas Cancelled Ur Yeast w Hyphae Cancelled Urine Yeast (Budding) Cancelled Urine Sperm (Auto) Cancelled Ur Oval Fat Bodies Auto Cancelled Urine HCG, Qual Negative 01/09/17 10:44 WBC RBC Hgb Hct MCV MCH MCHC RDW Plt Count MPV Neutrophils % (Manual) Lymphocytes % (Manual) Monocytes % (Manual) Nucleated RBC % Platelet Estimate Polychromasia Hypochromasia (manual) Poikilocytosis (manual Anisocytosis (manual) Microcytosis (manual) Macrocytosis (manual) Target Cells Ovalocytes [place] Cells Puncture Site Rr pCO2 31 L pO2 53 L HCO3 22.0 ABG pH 7.42 ABG Total CO2 21.1 L ABG O2 Saturation 92.1 L ABG Base Excess -3.4 L Curtis Test Pos ABG Potassium 3.1 L VBG pH VBG pCO2 VBG HCO3 VBG Total CO2 VBG O2 Sat (Calc) VBG Base Excess VBG Potassium A-a O2 Difference 122.0 Respiratory Index 2.3 Sodium 143.0 Chloride 120.0 H Glucose 103 Lactate 0.7 Liter Flow 3.0 FiO2 30.0 Potassium Carbon Dioxide Anion Gap BUN Creatinine Est GFR ( Amer) Est GFR (Non-Af Amer) Random Glucose Calcium Total Bilirubin AST ALT Alkaline Phosphatase Total Creatine Kinase CK-MB (Mass) Troponin I, Quant Total Protein Albumin Globulin Albumin/Globulin Ratio Arterial Blood Potassium 3.1 L Venous Blood Potassium Urine Color Urine Clarity Urine pH Ur Specific [place] Urine Protein Urine Glucose (UA) Urine Ketones Urine Blood Urine Nitrate Urine Bilirubin Urine Urobilinogen Ur Leukocyte Esterase Urine WBC (Auto) Urine RBC (Auto) Urine WBC Clumps (Auto) Ur Squamous Epith Cells Ur Transition Epith Cell Ur Renal Epithelial Cell Calcium Carbonate Cryst Calcium Phos Noreen (Auto) Calcium Oxalate Crystal Leucine Crystals Cystine Crystals Uric Acid Crystals Triple Phos Crystals Tyrosine Crystals Other Crystals Amorphous Sediment Urine Bacteria Epithelial Casts (Auto) Fatty Casts Hyaline Casts Granular Casts (Auto) Waxy Casts Broad Casts RBC Casts WBC Casts Other Casts Urine Trichomonas Ur Yeast w Hyphae Urine Yeast (Budding) Urine Sperm (Auto) Ur Oval Fat Bodies Auto Urine HCG, Qual Assessment & Plan (1) Sickle cell crisis Assessment and Plan: 46-year-old female, PMHx includes Anemia, Arthritis, CVA, Dementia, Depression, Hypertension, Sickle Cell Disease. Presents with pain typical of her sickle cell crisis. Patient was admitted to [facility] but became severely tachycardic and hypoxic, not on Lovenox. Most likely PE. Transferred to ICU for further management. Neuro: alert and oriented x 3 Pulm: tachypnea and hypoxia, with severe tacahycardia. Most likely Pulmonary Embolism with sickle cell crisis. Starting heparin drip, continue aggressive hydration for sickle cell crisis. CV: tachycardia from sickle cell crisis and suspected PE. f/u echo. Hem: sickle cell crisis, folic acid, hydroxyurea, fluids. No indication for transfusion currently, not in chest syndrome, not severely anemic. Consult Hem/ Onc - Dr. Shepherd. Renal: no acute issues, urine output wnl, will monitor Endo:no acute issues GI: low sodium diet ID: empiric coverage with Vanco and Zosyn. DVT proph - heparin gtt GI proph - protonix ayala for strict I/O's during acute illness Code status - full code Crtical Care Time spent 50 minutes Multi-disciplinary rounds were performed with house staff, nursing, speech therapy, respiratory therapy, pharmacy and nutrition with integrated input from the primary team/attending and other consulting services. The documented time is cumulative and includes review of patient data/exams/labs/chart review and examination of the patient on rounds and throughout the day; time is exclusive of any procedures or teaching time. Status: Acute
[2017-01-09] MEDS ORDERED: Heparin25000 units/250ml 1/2NS 25,000 UNITS/250 ML BAG IV PRN (11:29)
--- NOTE | 2017-01-09 12:53 | CP.PCM.CON ---
History of Present Illness - History of Present Illness History of Present Illness: 46-year-old female, PMHx includes Anemia, Rheum Arthritis. MCTD, CVA, Dementia, Depression, Hypertension, Sickle Cell Disease, presents to the emergency department from half-way, with complaints of severe pain, that started in abdominal area. Patient was admitted to floor sickle cell crises and was started on IV fluids pain medication. Rapid response was called this morning for hypoxemia, hypotension and tachycardia. PMHX: as above PSHX: gall nimishabalta SOCHX: ex-smoker, no ETOH or drugs ROS: anemia, hx of sickle cell crisis, minimally active, lives in assisted living facility Admitted for sickle cell crisis became hypoxic and tachycardic transferred to ICU: Anemia, normal creat ECHO directly viewed by me: hyperdynamic LV function, Normal RV size, mod-sev pulm HTN, Mod TR, mild MR XRAY: B/l haziness and vascular chages V/Q low prob for PE DDX: 1. sinus tachycardia is secondary to underlying sickle cell crisis 2. No suspicion for PE by V/Q or echo 3. Consider acute chest syndrome, or URI Hydration, pain management and supportive care Consider Chest CT Review of Systems - Review of Systems Systems not reviewed;Unavailable: Respiratory Distress, Altered Mental Status All systems: reviewed and no additional remarkable complaints except Past Patient History - Past Medical History & Family History Past Medical History?: Yes - Past Social History Smoking Status: Never Smoked - CARDIAC Hx Hypertension: Yes - PULMONARY Hx Pneumonia: Yes - NEUROLOGICAL Hx Dementia: Yes - HEENT Hx HEENT Problems: No - RENAL Hx Chronic Kidney Disease: No - ENDOCRINE/METABOLIC Hx Endocrine Disorders: No - HEMATOLOGICAL/ONCOLOGICAL Hx Anemia: Yes Hx Sickle Cell Disease: Yes - INTEGUMENTARY Hx Dermatological Problems: No - MUSCULOSKELETAL/RHEUMATOLOGICAL Hx Falls: No - GASTROINTESTINAL Hx Gastrointestinal Disorders: No - GENITOURINARY/GYNECOLOGICAL Hx Genitourinary Disorders: No - PSYCHIATRIC Hx Depression: Yes Hx Substance Use: No - SURGICAL HISTORY Hx Surgeries: Yes Other/Comment: tendon release,hip surgery - ANESTHESIA Hx Anesthesia: Yes Hx Anesthesia Reactions: No Meds Allergies/Adverse Reactions: Allergies Allergy/AdvReac Type Severity Reaction Status Date / Time No Known Allergies Allergy Verified 01/07/17 07:49 - Medications Medications: Current Medications Albuterol/Ipratropium (Duoneb 3 Mg/0.5 Mg (3 Ml) Ud) 3 ml INH RQ6 [facility] Last Admin: 01/09/17 02:37 Dose: Not Given Ascorbic Acid (Vitamin C 500 Mg Tab) 500 mg PO DAILY [facility] Last Admin: 01/08/17 09:52 Dose: 500 mg Diltiazem HCl (Cardizem) 5 mg IVP Q5M PRN PRN Reason: Heart rate Diphenhydramine HCl (Benadryl) 25 mg IVP Q4 PRN PRN Reason: Itching / Pruritus Last Admin: 01/09/17 06:52 Dose: 25 mg Donepezil HCl (Aricept) 10 mg PO HS [facility] Last Admin: 01/08/17 21:48 Dose: 10 mg Fentanyl (Duragesic) 1 patch TD Q72H [facility] Last Admin: 01/09/17 07:02 Dose: 1 patch Folic Acid (Folic Acid) 1 mg PO DAILY [facility] Last Admin: 01/09/17 09:55 Dose: Not Given Hydromorphone HCl (Dilaudid) 3 mg IVP Q4H PRN PRN Reason: Pain, severe (8-10) Last Admin: 01/09/17 06:55 Dose: 3 mg Hydroxyurea (Hydrea) 800 mg PO DAILY [facility] Vancomycin HCl 1 gm/ Sodium (Chloride) 250 mls @ 166.7 mls/hr IVPB DAILY [facility] Piperacillin Sod/Tazobactam Sod (Zosyn 3.375 Gm Iv Premix) 3.375 gm in 50 mls @ 100 mls/hr IVPB Q6H [facility] Sodium Chloride (Sodium Chloride 0.9%) 1,000 mls @ 1,000 mls/hr IV .Q1H [facility] Heparin Sodium/Sodium Chloride (Heparin 51664 Units/250ml 1/2 Normal Saline) 25 ,000 units in 250 mls @ 9.389 mls/hr IV .Q24H PRN; Protocol; 18 UNITS/KG/HR PRN Reason: PROTOCOL Sodium Chloride (Sodium Chloride 0.9%) 1,000 mls @ 150 mls/hr IV .Q6H40M [facility] Morphine Sulfate (Morphine Extended Release Tab) 60 mg PO Q12H [facility] Last Admin: 01/09/17 06:53 Dose: 60 mg Prednisone (Prednisone Tab) 5 mg PO DAILY [facility] Last Admin: 01/09/17 10:00 Dose: Not Given Sennosides (Senokot Tab) 8.6 mg PO HS [facility] Last Admin: 01/08/17 21:48 Dose: 8.6 mg Thiamine HCl (Vitamin B1 Tab) 100 mg PO DAILY [facility] Last Admin: 01/09/17 10:00 Dose: 100 mg Physical Exam - Constitutional Appears: No Acute Distress, Chronically Ill - Head Exam Head Exam: ATRAUMATIC, NORMAL INSPECTION, NORMOCEPHALIC - Eye Exam Eye Exam: EOMI, Normal appearance - ENT Exam ENT Exam: Mucous Membranes Moist - Neck Exam Neck exam: Positive for: Full Rom. Negative for: Tenderness, Thyromegaly - Respiratory Exam Respiratory Exam: Rhonchi (B/L bases) - Cardiovascular Exam Cardiovascular Exam: Tachycardia, +S2. absent: +S4 - GI/Abdominal Exam GI & Abdominal Exam: Normal Bowel Sounds, Soft. absent: Tenderness - Extremities Exam Extremities exam: Positive for: normal inspection. Negative for: calf tenderness, pedal edema - Neurological Exam Neurological exam: Alert, Oriented x3 - Psychiatric Exam Psychiatric exam: Anxious, Depressed - Skin Skin Exam: Normal Color, Warm Results - Vital Signs Recent Vital Signs: Last Vital Signs Temp 99.4 F 01/09/17 07:24 Pulse 174 H 01/09/17 07:24 Resp 20 01/09/17 07:24 BP 119/80 01/09/17 07:24 Pulse Ox 95 01/09/17 07:24 - Labs Result Diagrams: 01/10/17 06:36 01/10/17 06:36 Labs: Laboratory Results - last 24 hr 01/09/17 01/09/17 01/09/17 07:44 07:47 07:47 WBC 24.4 H RBC 3.53 L Hgb 8.2 L Hct 26.2 L MCV 74.1 L MCH 23.3 L MCHC 31.5 L RDW 21.7 H Plt Count 177 D MPV 9.0 Neut % (Auto) 92.0 H Lymph % (Auto) 5.0 L [place] % (Auto) 2.0 Eos % (Auto) 1.0 Baso % (Auto) 0.0 Neut # 0.2 L Lymph # 1.2 [place] # 0.5 Eos # 0.3 Baso # 0.0 Neutrophils % (Manual) 86 H Band Neutrophils % 1 Lymphocytes % (Manual) 6 L Monocytes % (Manual) 6 Myelocytes % 1 H Nucleated RBC % 11 H Platelet Estimate Normal Polychromasia Slight Hypochromasia (manual) Moderate Anisocytosis (manual) Moderate Microcytosis (manual) Slight Macrocytosis (manual) Slight Target Cells Slight Tear Drop Cells Slight Puncture Site pCO2 pO2 53 HCO3 ABG pH ABG Total CO2 ABG O2 Saturation ABG Base Excess Curtis Test ABG Potassium VBG pH 7.42 VBG pCO2 34 L VBG HCO3 23.3 VBG Total CO2 23.1 VBG O2 Sat (Calc) 91.0 H VBG Base Excess -1.7 L VBG Potassium 3.1 L A-a O2 Difference Respiratory Index Sodium 141.0 138 Chloride 113.0 H 104 Glucose 108 H Lactate 1.0 Liter Flow FiO2 Potassium 3.5 L Carbon Dioxide 25 Anion Gap 13 BUN 11 Creatinine 0.6 L Est GFR ( Amer) > 60 Est GFR (Non-Af Amer) > 60 Random Glucose 112 H Calcium 8.1 L Total Bilirubin 1.2 AST 76 H ALT 87 H D Alkaline Phosphatase 96 Total Creatine Kinase 125 CK-MB (Mass) 0.45 Troponin I, Quant 0.0920 Total Protein 6.6 Albumin 3.2 L D Globulin 3.5 Albumin/Globulin Ratio 0.9 L Arterial Blood Potassium Venous Blood Potassium 3.1 L Urine Color Urine Clarity Urine pH Ur Specific [place] Urine Protein Urine Glucose (UA) Urine Ketones Urine Blood Urine Nitrate Urine Bilirubin Urine Urobilinogen Ur Leukocyte Esterase Urine WBC (Auto) Urine RBC (Auto) Urine WBC Clumps (Auto) Ur Squamous Epith Cells Ur Transition Epith Cell Ur Renal Epithelial Cell Calcium Carbonate Cryst Calcium Phos Noreen (Auto) Calcium Oxalate Crystal Leucine Crystals Cystine Crystals Uric Acid Crystals Triple Phos Crystals Tyrosine Crystals Other Crystals Amorphous Sediment Urine Bacteria Epithelial Casts (Auto) Fatty Casts Hyaline Casts Granular Casts (Auto) Waxy Casts Broad Casts RBC Casts WBC Casts Other Casts Urine Trichomonas Ur Yeast w Hyphae Urine Yeast (Budding) Urine Sperm (Auto) Ur Oval Fat Bodies Auto Urine HCG, Qual Blood Type Antibody Screen 01/09/17 01/09/17 01/09/17 08:12 08:33 10:12 WBC RBC Hgb Hct MCV MCH MCHC RDW Plt Count MPV Neut % (Auto) Lymph % (Auto) [place] % (Auto) Eos % (Auto) Baso % (Auto) Neut # Lymph # [place] # Eos # Baso # Neutrophils % (Manual) Band Neutrophils % Lymphocytes % (Manual) Monocytes % (Manual) Myelocytes % Nucleated RBC % Platelet Estimate Polychromasia Hypochromasia (manual) Anisocytosis (manual) Microcytosis (manual) Macrocytosis (manual) Target Cells Tear Drop Cells Puncture Site pCO2 pO2 HCO3 ABG pH ABG Total CO2 ABG O2 Saturation ABG Base Excess Curtis Test ABG Potassium VBG pH VBG pCO2 VBG HCO3 VBG Total CO2 VBG O2 Sat (Calc) VBG Base Excess VBG Potassium A-a O2 Difference Respiratory Index Sodium Chloride Glucose Lactate Liter Flow FiO2 Potassium Carbon Dioxide Anion Gap BUN Creatinine Est GFR ( Amer) Est GFR (Non-Af Amer) Random Glucose Calcium Total Bilirubin AST ALT Alkaline Phosphatase Total Creatine Kinase CK-MB (Mass) Troponin I, Quant Total Protein Albumin Globulin Albumin/Globulin Ratio Arterial Blood Potassium Venous Blood Potassium Urine Color Yellow Cancelled Urine Clarity Clear Cancelled Urine pH 5.0 Cancelled Ur Specific [place] 1.012 Cancelled Urine Protein 2+ H Cancelled Urine Glucose (UA) Normal Cancelled Urine Ketones Negative Cancelled Urine Blood Negative Cancelled Urine Nitrate Negative Cancelled Urine Bilirubin Negative Cancelled Urine Urobilinogen Normal Cancelled Ur Leukocyte Esterase Neg Cancelled Urine WBC (Auto) 2 Cancelled Urine RBC (Auto) 1 Cancelled Urine WBC Clumps (Auto) Cancelled Ur Squamous Epith Cells < 1 Cancelled Ur Transition Epith Cell Cancelled Ur Renal Epithelial Cell Cancelled Calcium Carbonate Cryst Cancelled Calcium Phos Noreen (Auto) Cancelled Calcium Oxalate Crystal Cancelled Leucine Crystals Cancelled Cystine Crystals Cancelled Uric Acid Crystals Cancelled Triple Phos Crystals Cancelled Tyrosine Crystals Cancelled Other Crystals Cancelled Amorphous Sediment Cancelled Urine Bacteria Rare Cancelled Epithelial Casts (Auto) Cancelled Fatty Casts Cancelled Hyaline Casts 0-2 Cancelled Granular Casts (Auto) Cancelled Waxy Casts Cancelled Broad Casts Cancelled RBC Casts Cancelled WBC Casts Cancelled Other Casts Cancelled Urine Trichomonas Cancelled Ur Yeast w Hyphae Cancelled Urine Yeast (Budding) Cancelled Urine Sperm (Auto) Cancelled Ur Oval Fat Bodies Auto Cancelled Urine HCG, Qual Negative Blood Type A NEGATIVE Antibody Screen Negative 01/09/17 10:44 WBC RBC Hgb Hct MCV MCH MCHC RDW Plt Count MPV Neut % (Auto) Lymph % (Auto) [place] % (Auto) Eos % (Auto) Baso % (Auto) Neut # Lymph # [place] # Eos # Baso # Neutrophils % (Manual) Band Neutrophils % Lymphocytes % (Manual) Monocytes % (Manual) Myelocytes % Nucleated RBC % Platelet Estimate Polychromasia Hypochromasia (manual) Anisocytosis (manual) Microcytosis (manual) Macrocytosis (manual) Target Cells Tear Drop Cells Puncture Site Rr pCO2 31 L pO2 53 L HCO3 22.0 ABG pH 7.42 ABG Total CO2 21.1 L ABG O2 Saturation 92.1 L ABG Base Excess -3.4 L Curtis Test Pos ABG Potassium 3.1 L VBG pH VBG pCO2 VBG HCO3 VBG Total CO2 VBG O2 Sat (Calc) VBG Base Excess VBG Potassium A-a O2 Difference 122.0 Respiratory Index 2.3 Sodium 143.0 Chloride 120.0 H Glucose 103 Lactate 0.7 Liter Flow 3.0 FiO2 30.0 Potassium Carbon Dioxide Anion Gap BUN Creatinine Est GFR ( Amer) Est GFR (Non-Af Amer) Random Glucose Calcium Total Bilirubin AST ALT Alkaline Phosphatase Total Creatine Kinase CK-MB (Mass) Troponin I, Quant Total Protein Albumin Globulin Albumin/Globulin Ratio Arterial Blood Potassium 3.1 L Venous Blood Potassium Urine Color Urine Clarity Urine pH Ur Specific [place] Urine Protein Urine Glucose (UA) Urine Ketones Urine Blood Urine Nitrate Urine Bilirubin Urine Urobilinogen Ur Leukocyte Esterase Urine WBC (Auto) Urine RBC (Auto) Urine WBC Clumps (Auto) Ur Squamous Epith Cells Ur Transition Epith Cell Ur Renal Epithelial Cell Calcium Carbonate Cryst Calcium Phos Noreen (Auto) Calcium Oxalate Crystal Leucine Crystals Cystine Crystals Uric Acid Crystals Triple Phos Crystals Tyrosine Crystals Other Crystals Amorphous Sediment Urine Bacteria Epithelial Casts (Auto) Fatty Casts Hyaline Casts Granular Casts (Auto) Waxy Casts Broad Casts RBC Casts WBC Casts Other Casts Urine Trichomonas Ur Yeast w Hyphae Urine Yeast (Budding) Urine Sperm (Auto) Ur Oval Fat Bodies Auto Urine HCG, Qual Blood Type Antibody Screen - EKG Data EKG Interpreted by: Myself EKG shows normal: Sinus rhythm Rate: Tachycardia Assessment & Plan - Assessment and Plan (Free Text) Assessment: Anemia, normal creat ECHO directly viewed by me: hyperdynamic LV function, Normal RV size, mod-sev pulm HTN, Mod TR, mild MR XRAY: B/l haziness and vascular chages V/Q low prob for PE * Hx of sickel cell disese * Hx of mixed connective tissue disorder * Hx of Rheum arth DDX: 1. sinus tachycardia is secondary to underlying sickle cell crisis and acute chest syndrome 2. No suspicion for PE by V/Q or echo; CXR: B/l infiltrates and effusion 3. acute chest syndrome/URI s/p exchange transfusion, on broad spectrum ABX; Hydration, pain management and supportive care Consider Chest CT HR is improved still tachy (mild)
[2017-01-09] MEDS: Piperacill/Tazo 3.375gm in Dex 3.375 GM/50 ML BAG IVPB SCH ×2 (13:29→17:56)
--- NOTE | 2017-01-09 14:04 | CP.PCM.CON ---
History of Present Illness - History of Present Illness History of Present Illness: reason for consultation: shortness of breath, hypoxemia and possible acute chest syndrome 46-year-old female, PMHx includes Anemia, Arthritis, CVA, Dementia, Depression, Hypertension, Sickle Cell Disease, presents to the emergency department from long-term, with complaints of severe pain, that started in abdominal area. Patient was admitted to floor sickle cell crises and was started on IV fluids pain medication. Rapid response was called this morning for hypoxemia, hypotension and tachycardia. Patient transferred to ICU, status post fluid resuscitation and had VQ scan done low probability for pulmonembolism. Patient awake responsive able to respond and talk. Patient seen by cardiology and an echocardiogra which showed normal ejection fraction with pulmonary hypertension Review of Systems - Review of Systems All systems: reviewed and no additional remarkable complaints except (shortness of breath and pain) Past Patient History - Past Medical History & Family History Past Medical History?: Yes - Past Social History Smoking Status: Never Smoked - CARDIAC Hx Hypertension: Yes - PULMONARY Hx Pneumonia: Yes - NEUROLOGICAL Hx Dementia: Yes - HEENT Hx HEENT Problems: No - RENAL Hx Chronic Kidney Disease: No - ENDOCRINE/METABOLIC Hx Endocrine Disorders: No - HEMATOLOGICAL/ONCOLOGICAL Hx Anemia: Yes Hx Sickle Cell Disease: Yes - INTEGUMENTARY Hx Dermatological Problems: No - MUSCULOSKELETAL/RHEUMATOLOGICAL Hx Falls: No - GASTROINTESTINAL Hx Gastrointestinal Disorders: No - GENITOURINARY/GYNECOLOGICAL Hx Genitourinary Disorders: No - PSYCHIATRIC Hx Depression: Yes Hx Substance Use: No - SURGICAL HISTORY Hx Surgeries: Yes Other/Comment: tendon release,hip surgery - ANESTHESIA Hx Anesthesia: Yes Hx Anesthesia Reactions: No Meds Allergies/Adverse Reactions: Allergies Allergy/AdvReac Type Severity Reaction Status Date / Time No Known Allergies Allergy Verified 01/07/17 07:49 - Medications Medications: Current Medications Albuterol/Ipratropium (Duoneb 3 Mg/0.5 Mg (3 Ml) Ud) 3 ml INH RQ6 [facility] Last Admin: 01/09/17 13:22 Dose: Not Given Ascorbic Acid (Vitamin C 500 Mg Tab) 500 mg PO DAILY [facility] Last Admin: 01/09/17 13:23 Dose: 500 mg Diltiazem HCl (Cardizem) 5 mg IVP Q5M PRN PRN Reason: Heart rate Diphenhydramine HCl (Benadryl) 25 mg IVP Q4 PRN PRN Reason: Itching / Pruritus Last Admin: 01/09/17 06:52 Dose: 25 mg Donepezil HCl (Aricept) 10 mg PO HS [facility] Last Admin: 01/08/17 21:48 Dose: 10 mg Fentanyl (Duragesic) 1 patch TD Q72H [facility] Last Admin: 01/09/17 07:02 Dose: 1 patch Folic Acid (Folic Acid) 1 mg PO DAILY [facility] Last Admin: 01/09/17 09:55 Dose: Not Given Hydromorphone HCl (Dilaudid) 3 mg IVP Q4H PRN PRN Reason: Pain, severe (8-10) Last Admin: 01/09/17 06:55 Dose: 3 mg Hydroxyurea (Hydrea) 800 mg PO DAILY [facility] Vancomycin HCl 1 gm/ Sodium (Chloride) 250 mls @ 166.7 mls/hr IVPB DAILY [facility] Last Admin: 01/09/17 13:24 Dose: 166.7 mls/hr Piperacillin Sod/Tazobactam Sod (Zosyn 3.375 Gm Iv Premix) 3.375 gm in 50 mls @ 100 mls/hr IVPB Q6H [facility] Last Admin: 01/09/17 13:29 Dose: 100 mls/hr Sodium Chloride (Sodium Chloride 0.9%) 1,000 mls @ 1,000 mls/hr IV .Q1H [facility] Last Admin: 01/09/17 12:00 Dose: 1,000 mls/hr Sodium Chloride (Sodium Chloride 0.9%) 1,000 mls @ 150 mls/hr IV .Q6H40M [facility] Last Admin: 01/09/17 13:26 Dose: 150 mls/hr Morphine Sulfate (Morphine Extended Release Tab) 60 mg PO Q12H [facility] Last Admin: 01/09/17 06:53 Dose: 60 mg Prednisone (Prednisone Tab) 5 mg PO DAILY [facility] Last Admin: 01/09/17 10:00 Dose: Not Given Sennosides (Senokot Tab) 8.6 mg PO HS [facility] Last Admin: 01/08/17 21:48 Dose: 8.6 mg Thiamine HCl (Vitamin B1 Tab) 100 mg PO DAILY [facility] Last Admin: 01/09/17 10:00 Dose: 100 mg Physical Exam - Head Exam Head Exam: ATRAUMATIC, NORMOCEPHALIC - Eye Exam Eye Exam: EOMI - ENT Exam ENT Exam: Mucous Membranes Moist - Neck Exam Neck exam: Positive for: Normal Inspection - Respiratory Exam Respiratory Exam: Decreased Breath Sounds - Cardiovascular Exam Cardiovascular Exam: Tachycardia - GI/Abdominal Exam GI & Abdominal Exam: Normal Bowel Sounds - Extremities Exam Extremities exam: Positive for: normal inspection Results - Vital Signs Recent Vital Signs: Last Vital Signs Temp 99.4 F 01/09/17 07:24 Pulse 174 H 01/09/17 07:24 Resp 20 01/09/17 07:24 BP 119/80 01/09/17 07:24 Pulse Ox 95 01/09/17 07:24 - Labs Result Diagrams: 01/09/17 07:47 01/09/17 07:47 Labs: Laboratory Results - last 24 hr 01/09/17 01/09/17 01/09/17 07:44 07:47 07:47 WBC 24.4 H RBC 3.53 L Hgb 8.2 L Hct 26.2 L MCV 74.1 L MCH 23.3 L MCHC 31.5 L RDW 21.7 H Plt Count 177 D MPV 9.0 Neut % (Auto) 92.0 H Lymph % (Auto) 5.0 L [place] % (Auto) 2.0 Eos % (Auto) 1.0 Baso % (Auto) 0.0 Neut # 0.2 L Lymph # 1.2 [place] # 0.5 Eos # 0.3 Baso # 0.0 Neutrophils % (Manual) 86 H Band Neutrophils % 1 Lymphocytes % (Manual) 6 L Monocytes % (Manual) 6 Myelocytes % 1 H Nucleated RBC % 11 H Platelet Estimate Normal Polychromasia Slight Hypochromasia (manual) Moderate Anisocytosis (manual) Moderate Microcytosis (manual) Slight Macrocytosis (manual) Slight Target Cells Slight Tear Drop Cells Slight Puncture Site pCO2 pO2 53 HCO3 ABG pH ABG Total CO2 ABG O2 Saturation ABG Base Excess Curtis Test ABG Potassium VBG pH 7.42 VBG pCO2 34 L VBG HCO3 23.3 VBG Total CO2 23.1 VBG O2 Sat (Calc) 91.0 H VBG Base Excess -1.7 L VBG Potassium 3.1 L A-a O2 Difference Respiratory Index Sodium 141.0 138 Chloride 113.0 H 104 Glucose 108 H Lactate 1.0 Liter Flow FiO2 Potassium 3.5 L Carbon Dioxide 25 Anion Gap 13 BUN 11 Creatinine 0.6 L Est GFR ( Amer) > 60 Est GFR (Non-Af Amer) > 60 Random Glucose 112 H Calcium 8.1 L Total Bilirubin 1.2 AST 76 H ALT 87 H D Alkaline Phosphatase 96 Total Creatine Kinase 125 CK-MB (Mass) 0.45 Troponin I, Quant 0.0920 Total Protein 6.6 Albumin 3.2 L D Globulin 3.5 Albumin/Globulin Ratio 0.9 L Procalcitonin Arterial Blood Potassium Venous Blood Potassium 3.1 L Urine Color Urine Clarity Urine pH Ur Specific [place] Urine Protein Urine Glucose (UA) Urine Ketones Urine Blood Urine Nitrate Urine Bilirubin Urine Urobilinogen Ur Leukocyte Esterase Urine WBC (Auto) Urine RBC (Auto) Urine WBC Clumps (Auto) Ur Squamous Epith Cells Ur Transition Epith Cell Ur Renal Epithelial Cell Calcium Carbonate Cryst Calcium Phos Noreen (Auto) Calcium Oxalate Crystal Leucine Crystals Cystine Crystals Uric Acid Crystals Triple Phos Crystals Tyrosine Crystals Other Crystals Amorphous Sediment Urine Bacteria Epithelial Casts (Auto) Fatty Casts Hyaline Casts Granular Casts (Auto) Waxy Casts Broad Casts RBC Casts WBC Casts Other Casts Urine Trichomonas Ur Yeast w Hyphae Urine Yeast (Budding) Urine Sperm (Auto) Ur Oval Fat Bodies Auto Urine HCG, Qual Blood Type Antibody Screen 01/09/17 01/09/17 01/09/17 08:12 08:33 10:12 WBC RBC Hgb Hct MCV MCH MCHC RDW Plt Count MPV Neut % (Auto) Lymph % (Auto) [place] % (Auto) Eos % (Auto) Baso % (Auto) Neut # Lymph # [place] # Eos # Baso # Neutrophils % (Manual) Band Neutrophils % Lymphocytes % (Manual) Monocytes % (Manual) Myelocytes % Nucleated RBC % Platelet Estimate Polychromasia Hypochromasia (manual) Anisocytosis (manual) Microcytosis (manual) Macrocytosis (manual) Target Cells Tear Drop Cells Puncture Site pCO2 pO2 HCO3 ABG pH ABG Total CO2 ABG O2 Saturation ABG Base Excess Curtis Test ABG Potassium VBG pH VBG pCO2 VBG HCO3 VBG Total CO2 VBG O2 Sat (Calc) VBG Base Excess VBG Potassium A-a O2 Difference Respiratory Index Sodium Chloride Glucose Lactate Liter Flow FiO2 Potassium Carbon Dioxide Anion Gap BUN Creatinine Est GFR ( Amer) Est GFR (Non-Af Amer) Random Glucose Calcium Total Bilirubin AST ALT Alkaline Phosphatase Total Creatine Kinase CK-MB (Mass) Troponin I, Quant Total Protein Albumin Globulin Albumin/Globulin Ratio Procalcitonin Arterial Blood Potassium Venous Blood Potassium Urine Color Yellow Cancelled Urine Clarity Clear Cancelled Urine pH 5.0 Cancelled Ur Specific [place] 1.012 Cancelled Urine Protein 2+ H Cancelled Urine Glucose (UA) Normal Cancelled Urine Ketones Negative Cancelled Urine Blood Negative Cancelled Urine Nitrate Negative Cancelled Urine Bilirubin Negative Cancelled Urine Urobilinogen Normal Cancelled Ur Leukocyte Esterase Neg Cancelled Urine WBC (Auto) 2 Cancelled Urine RBC (Auto) 1 Cancelled Urine WBC Clumps (Auto) Cancelled Ur Squamous Epith Cells < 1 Cancelled Ur Transition Epith Cell Cancelled Ur Renal Epithelial Cell Cancelled Calcium Carbonate Cryst Cancelled Calcium Phos Noreen (Auto) Cancelled Calcium Oxalate Crystal Cancelled Leucine Crystals Cancelled Cystine Crystals Cancelled Uric Acid Crystals Cancelled Triple Phos Crystals Cancelled Tyrosine Crystals Cancelled Other Crystals Cancelled Amorphous Sediment Cancelled Urine Bacteria Rare Cancelled Epithelial Casts (Auto) Cancelled Fatty Casts Cancelled Hyaline Casts 0-2 Cancelled Granular Casts (Auto) Cancelled Waxy Casts Cancelled Broad Casts Cancelled RBC Casts Cancelled WBC Casts Cancelled Other Casts Cancelled Urine Trichomonas Cancelled Ur Yeast w Hyphae Cancelled Urine Yeast (Budding) Cancelled Urine Sperm (Auto) Cancelled Ur Oval Fat Bodies Auto Cancelled Urine HCG, Qual Negative Blood Type A NEGATIVE Antibody Screen Negative 01/09/17 01/09/17 10:44 11:20 WBC RBC Hgb Hct MCV MCH MCHC RDW Plt Count MPV Neut % (Auto) Lymph % (Auto) [place] % (Auto) Eos % (Auto) Baso % (Auto) Neut # Lymph # [place] # Eos # Baso # Neutrophils % (Manual) Band Neutrophils % Lymphocytes % (Manual) Monocytes % (Manual) Myelocytes % Nucleated RBC % Platelet Estimate Polychromasia Hypochromasia (manual) Anisocytosis (manual) Microcytosis (manual) Macrocytosis (manual) Target Cells Tear Drop Cells Puncture Site Rr pCO2 31 L pO2 53 L HCO3 22.0 ABG pH 7.42 ABG Total CO2 21.1 L ABG O2 Saturation 92.1 L ABG Base Excess -3.4 L Curtis Test Pos ABG Potassium 3.1 L VBG pH VBG pCO2 VBG HCO3 VBG Total CO2 VBG O2 Sat (Calc) VBG Base Excess VBG Potassium A-a O2 Difference 122.0 Respiratory Index 2.3 Sodium 143.0 Chloride 120.0 H Glucose 103 Lactate 0.7 Liter Flow 3.0 FiO2 30.0 Potassium Carbon Dioxide Anion Gap BUN Creatinine Est GFR ( Amer) Est GFR (Non-Af Amer) Random Glucose Calcium Total Bilirubin AST ALT Alkaline Phosphatase Total Creatine Kinase CK-MB (Mass) Troponin I, Quant Total Protein Albumin Globulin Albumin/Globulin Ratio Procalcitonin 0.97 H Arterial Blood Potassium 3.1 L Venous Blood Potassium Urine Color Urine Clarity Urine pH Ur Specific [place] Urine Protein Urine Glucose (UA) Urine Ketones Urine Blood Urine Nitrate Urine Bilirubin Urine Urobilinogen Ur Leukocyte Esterase Urine WBC (Auto) Urine RBC (Auto) Urine WBC Clumps (Auto) Ur Squamous Epith Cells Ur Transition Epith Cell Ur Renal Epithelial Cell Calcium Carbonate Cryst Calcium Phos Noreen (Auto) Calcium Oxalate Crystal Leucine Crystals Cystine Crystals Uric Acid Crystals Triple Phos Crystals Tyrosine Crystals Other Crystals Amorphous Sediment Urine Bacteria Epithelial Casts (Auto) Fatty Casts Hyaline Casts Granular Casts (Auto) Waxy Casts Broad Casts RBC Casts WBC Casts Other Casts Urine Trichomonas Ur Yeast w Hyphae Urine Yeast (Budding) Urine Sperm (Auto) Ur Oval Fat Bodies Auto Urine HCG, Qual Blood Type Antibody Screen Assessment & Plan (1) Acute chest syndrome due to sickle cell crisis Status: Acute Comment: 46-year-old female presented with sickle cell crisis and transferred to ICU for hypoxemia, tachycardia and hypotension. Chest x-ray consistent with bilateral basal infiltrate with elevated white count. Patient received fluid resuscitation and had VQ scan done which is low prob for pulmonary embolism. Case discussed with hematology and restaurant hostess and the consensus is exchange transfusion. Continue broad-spectrum antibiotics and pain medications. Continue nebulizer treatment. Continue ICU monitoring and ventilatory support if respiratory status worsens. followup culture and sensitivity. followup chest x-ray and ABG (2) Pneumonia Status: Acute (3) Sickle cell crisis Status: Acute
--- NOTE | 2017-01-09 16:05 | CP.PCM.CON ---
History of Present Illness - History of Present Illness History of Present Illness: 46-year-old female, PMHx includes Anemia, Arthritis, CVA, Dementia, Depression, Hypertension, Sickle Cell Disease. Presents with pain typical of her sickle cell crisis. Patient was admitted to [facility] but became severely tachycardic and hypoxic, not on Lovenox. Most likely PE. Transferred to ICU for further management. Past Patient History - Past Medical History & Family History Past Medical History?: Yes - Past Social History Smoking Status: Never Smoked - CARDIAC Hx Hypertension: Yes - PULMONARY Hx Pneumonia: Yes - NEUROLOGICAL Hx Dementia: Yes - HEENT Hx HEENT Problems: No - RENAL Hx Chronic Kidney Disease: No - ENDOCRINE/METABOLIC Hx Endocrine Disorders: No - HEMATOLOGICAL/ONCOLOGICAL Hx Anemia: Yes Hx Sickle Cell Disease: Yes - INTEGUMENTARY Hx Dermatological Problems: No - MUSCULOSKELETAL/RHEUMATOLOGICAL Hx Falls: No - GASTROINTESTINAL Hx Gastrointestinal Disorders: No - GENITOURINARY/GYNECOLOGICAL Hx Genitourinary Disorders: No - PSYCHIATRIC Hx Depression: Yes Hx Substance Use: No - SURGICAL HISTORY Hx Surgeries: Yes Other/Comment: tendon release,hip surgery - ANESTHESIA Hx Anesthesia: Yes Hx Anesthesia Reactions: No Meds Allergies/Adverse Reactions: Allergies Allergy/AdvReac Type Severity Reaction Status Date / Time No Known Allergies Allergy Verified 01/07/17 07:49 - Medications Medications: Current Medications Albuterol/Ipratropium (Duoneb 3 Mg/0.5 Mg (3 Ml) Ud) 3 ml INH RQ6 [facility] Last Admin: 01/09/17 13:22 Dose: Not Given Ascorbic Acid (Vitamin C 500 Mg Tab) 500 mg PO DAILY [facility] Last Admin: 01/09/17 13:23 Dose: 500 mg Diltiazem HCl (Cardizem) 5 mg IVP Q5M PRN PRN Reason: Heart rate Diphenhydramine HCl (Benadryl) 25 mg IVP Q4 PRN PRN Reason: Itching / Pruritus Last Admin: 01/09/17 06:52 Dose: 25 mg Donepezil HCl (Aricept) 10 mg PO HS [facility] Last Admin: 01/08/17 21:48 Dose: 10 mg Fentanyl (Duragesic) 1 patch TD Q72H [facility] Last Admin: 01/09/17 07:02 Dose: 1 patch Folic Acid (Folic Acid) 1 mg PO DAILY [facility] Last Admin: 01/09/17 09:55 Dose: Not Given Hydromorphone HCl (Dilaudid) 3 mg IVP Q4H PRN PRN Reason: Pain, severe (8-10) Last Admin: 01/09/17 06:55 Dose: 3 mg Hydroxyurea (Hydrea) 1,000 mg PO DAILY [facility] Vancomycin HCl 1 gm/ Sodium (Chloride) 250 mls @ 166.7 mls/hr IVPB DAILY [facility] Last Admin: 01/09/17 13:24 Dose: 166.7 mls/hr Piperacillin Sod/Tazobactam Sod (Zosyn 3.375 Gm Iv Premix) 3.375 gm in 50 mls @ 100 mls/hr IVPB Q6H [facility] Last Admin: 01/09/17 13:29 Dose: 100 mls/hr Sodium Chloride (Sodium Chloride 0.9%) 1,000 mls @ 1,000 mls/hr IV .Q1H [facility] Last Admin: 01/09/17 12:00 Dose: 1,000 mls/hr Sodium Chloride (Sodium Chloride 0.9%) 1,000 mls @ 150 mls/hr IV .Q6H40M [facility] Last Admin: 01/09/17 13:26 Dose: 150 mls/hr Morphine Sulfate (Morphine Extended Release Tab) 60 mg PO Q12H [facility] Last Admin: 01/09/17 06:53 Dose: 60 mg Prednisone (Prednisone Tab) 5 mg PO DAILY [facility] Last Admin: 01/09/17 10:00 Dose: Not Given Sennosides (Senokot Tab) 8.6 mg PO HS [facility] Last Admin: 01/08/17 21:48 Dose: 8.6 mg Thiamine HCl (Vitamin B1 Tab) 100 mg PO DAILY [facility] Last Admin: 01/09/17 10:00 Dose: 100 mg Results - Vital Signs Recent Vital Signs: Last Vital Signs Temp 99.6 F 01/09/17 11:00 Pulse 158 H 01/09/17 15:00 Resp 23 01/09/17 15:00 BP 122/69 01/09/17 15:00 Pulse Ox 94 L 01/09/17 15:00 - Labs Result Diagrams: 01/09/17 07:47 01/09/17 07:47 Labs: Laboratory Results - last 24 hr 01/09/17 01/09/17 01/09/17 07:44 07:47 07:47 WBC 24.4 H RBC 3.53 L Hgb 8.2 L Hct 26.2 L MCV 74.1 L MCH 23.3 L MCHC 31.5 L RDW 21.7 H Plt Count 177 D MPV 9.0 Neut % (Auto) 92.0 H Lymph % (Auto) 5.0 L [place] % (Auto) 2.0 Eos % (Auto) 1.0 Baso % (Auto) 0.0 Neut # 0.2 L Lymph # 1.2 [place] # 0.5 Eos # 0.3 Baso # 0.0 Neutrophils % (Manual) 86 H Band Neutrophils % 1 Lymphocytes % (Manual) 6 L Monocytes % (Manual) 6 Myelocytes % 1 H Nucleated RBC % 11 H Platelet Estimate Normal Polychromasia Slight Hypochromasia (manual) Moderate Anisocytosis (manual) Moderate Microcytosis (manual) Slight Macrocytosis (manual) Slight Target Cells Slight Tear Drop Cells Slight Puncture Site pCO2 pO2 53 HCO3 ABG pH ABG Total CO2 ABG O2 Saturation ABG Base Excess Curtis Test ABG Potassium VBG pH 7.42 VBG pCO2 34 L VBG HCO3 23.3 VBG Total CO2 23.1 VBG O2 Sat (Calc) 91.0 H VBG Base Excess -1.7 L VBG Potassium 3.1 L A-a O2 Difference Respiratory Index Sodium 141.0 138 Chloride 113.0 H 104 Glucose 108 H Lactate 1.0 Liter Flow FiO2 Potassium 3.5 L Carbon Dioxide 25 Anion Gap 13 BUN 11 Creatinine 0.6 L Est GFR ( Amer) > 60 Est GFR (Non-Af Amer) > 60 Random Glucose 112 H Calcium 8.1 L Total Bilirubin 1.2 AST 76 H ALT 87 H D Alkaline Phosphatase 96 Total Creatine Kinase 125 CK-MB (Mass) 0.45 Troponin I, Quant 0.0920 Total Protein 6.6 Albumin 3.2 L D Globulin 3.5 Albumin/Globulin Ratio 0.9 L Procalcitonin Arterial Blood Potassium Venous Blood Potassium 3.1 L Urine Color Urine Clarity Urine pH Ur Specific [place] Urine Protein Urine Glucose (UA) Urine Ketones Urine Blood Urine Nitrate Urine Bilirubin Urine Urobilinogen Ur Leukocyte Esterase Urine WBC (Auto) Urine RBC (Auto) Urine WBC Clumps (Auto) Ur Squamous Epith Cells Ur Transition Epith Cell Ur Renal Epithelial Cell Calcium Carbonate Cryst Calcium Phos Noreen (Auto) Calcium Oxalate Crystal Leucine Crystals Cystine Crystals Uric Acid Crystals Triple Phos Crystals Tyrosine Crystals Other Crystals Amorphous Sediment Urine Bacteria Epithelial Casts (Auto) Fatty Casts Hyaline Casts Granular Casts (Auto) Waxy Casts Broad Casts RBC Casts WBC Casts Other Casts Urine Trichomonas Ur Yeast w Hyphae Urine Yeast (Budding) Urine Sperm (Auto) Ur Oval Fat Bodies Auto Urine HCG, Qual Blood Type Antibody Screen 01/09/17 01/09/17 01/09/17 08:12 08:33 10:12 WBC RBC Hgb Hct MCV MCH MCHC RDW Plt Count MPV Neut % (Auto) Lymph % (Auto) [place] % (Auto) Eos % (Auto) Baso % (Auto) Neut # Lymph # [place] # Eos # Baso # Neutrophils % (Manual) Band Neutrophils % Lymphocytes % (Manual) Monocytes % (Manual) Myelocytes % Nucleated RBC % Platelet Estimate Polychromasia Hypochromasia (manual) Anisocytosis (manual) Microcytosis (manual) Macrocytosis (manual) Target Cells Tear Drop Cells Puncture Site pCO2 pO2 HCO3 ABG pH ABG Total CO2 ABG O2 Saturation ABG Base Excess Curtis Test ABG Potassium VBG pH VBG pCO2 VBG HCO3 VBG Total CO2 VBG O2 Sat (Calc) VBG Base Excess VBG Potassium A-a O2 Difference Respiratory Index Sodium Chloride Glucose Lactate Liter Flow FiO2 Potassium Carbon Dioxide Anion Gap BUN Creatinine Est GFR ( Amer) Est GFR (Non-Af Amer) Random Glucose Calcium Total Bilirubin AST ALT Alkaline Phosphatase Total Creatine Kinase CK-MB (Mass) Troponin I, Quant Total Protein Albumin Globulin Albumin/Globulin Ratio Procalcitonin Arterial Blood Potassium Venous Blood Potassium Urine Color Yellow Cancelled Urine Clarity Clear Cancelled Urine pH 5.0 Cancelled Ur Specific [place] 1.012 Cancelled Urine Protein 2+ H Cancelled Urine Glucose (UA) Normal Cancelled Urine Ketones Negative Cancelled Urine Blood Negative Cancelled Urine Nitrate Negative Cancelled Urine Bilirubin Negative Cancelled Urine Urobilinogen Normal Cancelled Ur Leukocyte Esterase Neg Cancelled Urine WBC (Auto) 2 Cancelled Urine RBC (Auto) 1 Cancelled Urine WBC Clumps (Auto) Cancelled Ur Squamous Epith Cells < 1 Cancelled Ur Transition Epith Cell Cancelled Ur Renal Epithelial Cell Cancelled Calcium Carbonate Cryst Cancelled Calcium Phos Noreen (Auto) Cancelled Calcium Oxalate Crystal Cancelled Leucine Crystals Cancelled Cystine Crystals Cancelled Uric Acid Crystals Cancelled Triple Phos Crystals Cancelled Tyrosine Crystals Cancelled Other Crystals Cancelled Amorphous Sediment Cancelled Urine Bacteria Rare Cancelled Epithelial Casts (Auto) Cancelled Fatty Casts Cancelled Hyaline Casts 0-2 Cancelled Granular Casts (Auto) Cancelled Waxy Casts Cancelled Broad Casts Cancelled RBC Casts Cancelled WBC Casts Cancelled Other Casts Cancelled Urine Trichomonas Cancelled Ur Yeast w Hyphae Cancelled Urine Yeast (Budding) Cancelled Urine Sperm (Auto) Cancelled Ur Oval Fat Bodies Auto Cancelled Urine HCG, Qual Negative Blood Type A NEGATIVE Antibody Screen Negative 01/09/17 01/09/17 10:44 11:20 WBC RBC Hgb Hct MCV MCH MCHC RDW Plt Count MPV Neut % (Auto) Lymph % (Auto) [place] % (Auto) Eos % (Auto) Baso % (Auto) Neut # Lymph # [place] # Eos # Baso # Neutrophils % (Manual) Band Neutrophils % Lymphocytes % (Manual) Monocytes % (Manual) Myelocytes % Nucleated RBC % Platelet Estimate Polychromasia Hypochromasia (manual) Anisocytosis (manual) Microcytosis (manual) Macrocytosis (manual) Target Cells Tear Drop Cells Puncture Site Rr pCO2 31 L pO2 53 L HCO3 22.0 ABG pH 7.42 ABG Total CO2 21.1 L ABG O2 Saturation 92.1 L ABG Base Excess -3.4 L Curtis Test Pos ABG Potassium 3.1 L VBG pH VBG pCO2 VBG HCO3 VBG Total CO2 VBG O2 Sat (Calc) VBG Base Excess VBG Potassium A-a O2 Difference 122.0 Respiratory Index 2.3 Sodium 143.0 Chloride 120.0 H Glucose 103 Lactate 0.7 Liter Flow 3.0 FiO2 30.0 Potassium Carbon Dioxide Anion Gap BUN Creatinine Est GFR ( Amer) Est GFR (Non-Af Amer) Random Glucose Calcium Total Bilirubin AST ALT Alkaline Phosphatase Total Creatine Kinase CK-MB (Mass) Troponin I, Quant Total Protein Albumin Globulin Albumin/Globulin Ratio Procalcitonin 0.97 H Arterial Blood Potassium 3.1 L Venous Blood Potassium Urine Color Urine Clarity Urine pH Ur Specific [place] Urine Protein Urine Glucose (UA) Urine Ketones Urine Blood Urine Nitrate Urine Bilirubin Urine Urobilinogen Ur Leukocyte Esterase Urine WBC (Auto) Urine RBC (Auto) Urine WBC Clumps (Auto) Ur Squamous Epith Cells Ur Transition Epith Cell Ur Renal Epithelial Cell Calcium Carbonate Cryst Calcium Phos Noreen (Auto) Calcium Oxalate Crystal Leucine Crystals Cystine Crystals Uric Acid Crystals Triple Phos Crystals Tyrosine Crystals Other Crystals Amorphous Sediment Urine Bacteria Epithelial Casts (Auto) Fatty Casts Hyaline Casts Granular Casts (Auto) Waxy Casts Broad Casts RBC Casts WBC Casts Other Casts Urine Trichomonas Ur Yeast w Hyphae Urine Yeast (Budding) Urine Sperm (Auto) Ur Oval Fat Bodies Auto Urine HCG, Qual Blood Type Antibody Screen
--- NOTE | 2017-01-09 16:21 | PCM.PROC ---
<Amber Patel - Last Filed: 01/09/17 16:45> Procedures Attestation:: I certify that I have explained the specified Operation(s) or Procedure(s), risks, benefits and reasonable alternatives to the Patient and/or other person responsible. The opportunity was given to ask questions and all questions answered - Central Line Placement Right Internal Jugular Triple Lumen Catheter Aseptic technique was employed throughout the procedure: Hand Hygiene done prior to procedure, Full sterile barriers (mask, hair cover, sterile gown, sterile gloves), Full body sterile drape, Chloraprep Antiseptic: 30 second prep for IJ or SC sites CVP Time Out Performed: Yes Pt. Placed on Pulse Ox Monitor: Yes Central Line Prep: Chlorhexidine-Alcohol Combination Local Anesthesia Used: Lidocaine 1% Amount of Anesthesia Used (mls): 3 Ultrasound Used for Placement: Yes Central Line Lumen Inserted: triple Central Line Length: 20 cm Post Procedure: Sutured in Place, Good Blood Return, All Ports Aspirated, Flushed, Capped, Sterile Dressing Applied Secured by: Suture Post procedure dressing: Chlorhexidine disc (Biopatch) Post Procedure X-Ray: Yes Patient Tolerated Procedure: Well, No Complications Immediate Complications: None <Taiwo Thompson - Last Filed: 01/09/17 17:06> Attending/Attestation - Attestation I have personally seen and examined this patient.: Yes I have fully participated in the care of the patient.: Yes I have reviewed all pertinent clinical information, including history, physical exam and plan: Yes Notes (Text): 01/09/17 17:04 The resident physician performed this procedure under my supervision and with my assistance. There were no complications and the patient tolerated the procedure well.
--- NOTE | 2017-01-09 16:44 | RAD ---
HISTORY: central line placement left IJ COMPARISON: Chest x-ray performed 01/09/17 TECHNIQUE: Chest, one view. FINDINGS: Right IJ approach central venous catheter extends to the level the right atrium. Examination limited by habitus, hypoinflation, and obliquity. LUNGS: Bilateral lower lobe infiltrates. Probable small bilateral pleural effusions. No definite pneumothorax. Please note that chest x-ray has limited sensitivity for the detection of pulmonary masses. CARDIOVASCULAR: Heart size appears top normal. OSSEOUS STRUCTURES: Evidence of osteonecrosis both shoulder/proximal humeri. VISUALIZED UPPER ABDOMEN: Unremarkable. OTHER FINDINGS: None. IMPRESSION: Right IJ approach central venous catheter extends to the level of the right atrium ; suggest repositioning to the cavoatrial junction. Bilateral lower lobe infiltrates. Probable small bilateral pleural effusions.
--- NOTE | 2017-01-09 17:02 | CARD ---
APPROVED REPORT EXAM: Two-dimensional and M-mode echocardiogram with Doppler and color Doppler. Other Information Quality : GoodRhythm : INDICATION SUSPECT PE,R/O RV STRAIN RISK FACTORS Hypertension M-Mode DIMENSIONS RVDd1.55 (2.1-3.2cm)Left Atrium (MM)3.19 (2.5-4.0cm) IVSd1.16 (0.7-1.1cm)Aortic Root3.07 (2.2-3.7cm) LVDd4.31 (4.0-5.6cm)Aortic Cusp Exc.1.58 (1.5-2.0cm) PWd1.18 (0.7-1.1cm)FS (%) 30 % LVDs3.02 (2.0-3.8cm)LVEF (%)58 (>50%) Mitral Valve MV E Jnsxtnhv884.7cm/sMV A Zqfvakic42.0cm/sE/A ratio1.4 TDI E/Lateral E'0.0E/Medial E'0.0 Tricuspid Valve TR Peak [id number]/sTR Peak [id number] LEFT VENTRICLE The left ventricle is normal size. There is normal left ventricular wall thickness. The left ventricular function is normal. The left ventricular ejection fraction is within the normal range. There is normal LV segmental wall motion. The left ventricular diastolic function is normal. RIGHT VENTRICLE The right ventricle is normal size. There is normal right ventricular wall thickness. ATRIA The left atrium size is normal. The right atrium size is normal. AORTIC VALVE The aortic valve is normal in structure. MITRAL VALVE The mitral valve is normal in structure. TRICUSPID VALVE There is moderate tricuspid regurgitation. <Conclusion> Normal LV systolic function. Normal chamber size. Moderate TR.
[2017-01-09] MEDS ORDERED: Metoprolol 1 mg/ml Inj IVP ONE (19:08)
[2017-01-09] MEDS: Metoprolol 1 mg/ml Inj IVP SCH (19:36)
[2017-01-09] MEDS ORDERED: DiphenhydrAMINE 50 mg/ml Inj IVP STA (20:54)
[2017-01-09] MEDS ORDERED: methylPREDNISolone 125 MG in Sodium Chloride 0.9% 100 ML IVPB ONE (20:56)
[2017-01-10] MEDS: Piperacill/Tazo 3.375gm in Dex 3.375 GM/50 ML BAG IVPB SCH ×4 (01:00→17:23)
[2017-01-10] MEDS: Metoprolol 1 mg/ml Inj IVP SCH ×4 (01:00→20:54)
[2017-01-10] MEDS: Albuterol-Ipratrop 3 mg / 0.5 (3 ml) UD INH SCH ×4 (01:08→20:40)
--- NOTE | 2017-01-10 02:07 | CP.PCM.CON ---
History of Present Illness - History of Present Illness History of Present Illness: 46 year old female with a history of sickle cell anemia, admitted with sickle cell pain crisis, complicated by acute chest syndrome. The patient is currently tachypnic and tachycardic despite oxygen. She is unable to speak in full sentences but reports her breathing is worsening. Past medical history: Sickle cell anemia Past surgical history: Cholecystectomy Family history: Sickle cell trait Social history: Denies tobacco, alcohol, and illicit drug use. Allergies: NKA Review of systems: All remaining review of systems including HEENT, cardiovascular, respiratory, gastrointestinal, genitourinary, musculoskeletal, dermatologic, neurologic, and psychiatric are negative unless mentioned in the HPI. Past Patient History - Past Medical History & Family History Past Medical History?: Yes - Past Social History Smoking Status: Never Smoked - CARDIAC Hx Hypertension: Yes - PULMONARY Hx Pneumonia: Yes - NEUROLOGICAL Hx Dementia: Yes - HEENT Hx HEENT Problems: No - RENAL Hx Chronic Kidney Disease: No - ENDOCRINE/METABOLIC Hx Endocrine Disorders: No - HEMATOLOGICAL/ONCOLOGICAL Hx Anemia: Yes Hx Sickle Cell Disease: Yes - INTEGUMENTARY Hx Dermatological Problems: No - MUSCULOSKELETAL/RHEUMATOLOGICAL Hx Arthritis: Yes - GASTROINTESTINAL Hx Gastrointestinal Disorders: No - GENITOURINARY/GYNECOLOGICAL Hx Genitourinary Disorders: No - PSYCHIATRIC Hx Depression: Yes Hx Substance Use: No - SURGICAL HISTORY Hx Surgeries: Yes Other/Comment: tendon release,hip surgery - ANESTHESIA Hx Anesthesia: Yes Hx Anesthesia Reactions: No Meds Allergies/Adverse Reactions: Allergies Allergy/AdvReac Type Severity Reaction Status Date / Time No Known Allergies Allergy Verified 01/07/17 07:49 - Medications Medications: Current Medications Acetaminophen (Tylenol 325mg Tab) 650 mg PO Q6 PRN PRN Reason: Fever >100.4 F Last Admin: 01/09/17 21:02 Dose: 650 mg Albuterol/Ipratropium (Duoneb 3 Mg/0.5 Mg (3 Ml) Ud) 3 ml INH RQ6 JESSICA Last Admin: 01/10/17 01:08 Dose: Not Given Ascorbic Acid (Vitamin C 500 Mg Tab) 500 mg PO DAILY [facility] Last Admin: 01/09/17 13:23 Dose: 500 mg Diltiazem HCl (Cardizem) 5 mg IVP Q5M PRN PRN Reason: Heart rate Diphenhydramine HCl (Benadryl) 25 mg IVP Q4 PRN PRN Reason: Itching / Pruritus Last Admin: 01/09/17 06:52 Dose: 25 mg Donepezil HCl (Aricept) 10 mg PO HS [facility] Last Admin: 01/09/17 22:30 Dose: 10 mg Fentanyl (Duragesic) 1 patch TD Q72H [facility] Last Admin: 01/09/17 17:55 Dose: 1 patch Folic Acid (Folic Acid) 1 mg PO DAILY [facility] Last Admin: 01/09/17 09:55 Dose: Not Given Hydromorphone HCl (Dilaudid) 3 mg IVP Q4H PRN PRN Reason: Pain, severe (8-10) Last Admin: 01/09/17 06:55 Dose: 3 mg Hydroxyurea (Hydrea) 1,000 mg PO DAILY [facility] Last Admin: 01/09/17 17:53 Dose: 1,000 mg Vancomycin HCl 1 gm/ Sodium (Chloride) 250 mls @ 166.7 mls/hr IVPB DAILY [facility] Last Admin: 01/09/17 13:24 Dose: 166.7 mls/hr Piperacillin Sod/Tazobactam Sod (Zosyn 3.375 Gm Iv Premix) 3.375 gm in 50 mls @ 100 mls/hr IVPB Q6H [facility] Last Admin: 01/09/17 17:56 Dose: 100 mls/hr Sodium Chloride (Sodium Chloride 0.9%) 1,000 mls @ 150 mls/hr IV .Q6H40M [facility] Last Admin: 01/09/17 21:23 Dose: 150 mls/hr Metoprolol Tartrate (Lopressor) 5 mg IVP Q6H [facility] Last Admin: 01/09/17 19:36 Dose: Not Given Morphine Sulfate (Morphine Extended Release Tab) 60 mg PO Q12H [facility] Last Admin: 01/09/17 17:53 Dose: 60 mg Prednisone (Prednisone Tab) 5 mg PO DAILY [facility] Last Admin: 01/09/17 10:00 Dose: Not Given Sennosides (Senokot Tab) 8.6 mg PO HS [facility] Last Admin: 01/09/17 23:30 Dose: 8.6 mg Thiamine HCl (Vitamin B1 Tab) 100 mg PO DAILY [facility] Last Admin: 01/09/17 10:00 Dose: 100 mg Physical Exam - Head Exam Head Exam: ATRAUMATIC - Eye Exam Eye Exam: Normal appearance - ENT Exam ENT Exam: Mucous Membranes Dry - Respiratory Exam Respiratory Exam: Accessory Muscle Use - Cardiovascular Exam Cardiovascular Exam: +S1, +S2 - GI/Abdominal Exam GI & Abdominal Exam: Normal Bowel Sounds - Extremities Exam Extremities exam: Positive for: normal inspection - Neurological Exam Neurological exam: Oriented x3 - Psychiatric Exam Psychiatric exam: Agitated Results - Vital Signs Recent Vital Signs: Last Vital Signs Temp 102 F H 01/09/17 22:15 Pulse 139 H 01/09/17 22:50 Resp 25 H 01/09/17 22:50 BP 103/64 01/09/17 22:37 Pulse Ox 94 L 01/09/17 22:50 - Labs Result Diagrams: 01/10/17 06:36 01/10/17 06:36 Labs: Laboratory Results - last 24 hr 01/09/17 01/09/17 01/09/17 07:44 07:47 07:47 WBC 24.4 H RBC 3.53 L Hgb 8.2 L Hct 26.2 L MCV 74.1 L MCH 23.3 L MCHC 31.5 L RDW 21.7 H Plt Count 177 D MPV 9.0 Neut % (Auto) 92.0 H Lymph % (Auto) 5.0 L [place] % (Auto) 2.0 Eos % (Auto) 1.0 Baso % (Auto) 0.0 Neut # 0.2 L Lymph # 1.2 [place] # 0.5 Eos # 0.3 Baso # 0.0 Neutrophils % (Manual) 86 H Band Neutrophils % 1 Lymphocytes % (Manual) 6 L Monocytes % (Manual) 6 Myelocytes % 1 H Nucleated RBC % 11 H Platelet Estimate Normal Polychromasia Slight Hypochromasia (manual) Moderate Anisocytosis (manual) Moderate Microcytosis (manual) Slight Macrocytosis (manual) Slight Target Cells Slight Tear Drop Cells Slight APTT Puncture Site pCO2 pO2 53 HCO3 ABG pH ABG Total CO2 ABG O2 Saturation ABG Base Excess Curtis Test ABG Potassium VBG pH 7.42 VBG pCO2 34 L VBG HCO3 23.3 VBG Total CO2 23.1 VBG O2 Sat (Calc) 91.0 H VBG Base Excess -1.7 L VBG Potassium 3.1 L A-a O2 Difference Respiratory Index Sodium 141.0 138 Chloride 113.0 H 104 Glucose 108 H Lactate 1.0 Liter Flow FiO2 Potassium 3.5 L Carbon Dioxide 25 Anion Gap 13 BUN 11 Creatinine 0.6 L Est GFR ( Amer) > 60 Est GFR (Non-Af Amer) > 60 Random Glucose 112 H Calcium 8.1 L Total Bilirubin 1.2 AST 76 H ALT 87 H D Alkaline Phosphatase 96 Total Creatine Kinase 125 CK-MB (Mass) 0.45 Troponin I, Quant 0.0920 Total Protein 6.6 Albumin 3.2 L D Globulin 3.5 Albumin/Globulin Ratio 0.9 L Procalcitonin Arterial Blood Potassium Venous Blood Potassium 3.1 L Urine Color Urine Clarity Urine pH Ur Specific Horatio Urine Protein Urine Glucose (UA) Urine Ketones Urine Blood Urine Nitrate Urine Bilirubin Urine Urobilinogen Ur Leukocyte Esterase Urine WBC (Auto) Urine RBC (Auto) Urine WBC Clumps (Auto) Ur Squamous Epith Cells Ur Transition Epith Cell Ur Renal Epithelial Cell Calcium Carbonate Cryst Calcium Phos Noreen (Auto) Calcium Oxalate Crystal Leucine Crystals Cystine Crystals Uric Acid Crystals Triple Phos Crystals Tyrosine Crystals Other Crystals Amorphous Sediment Urine Bacteria Epithelial Casts (Auto) Fatty Casts Hyaline Casts Granular Casts (Auto) Waxy Casts Broad Casts RBC Casts WBC Casts Other Casts Urine Trichomonas Ur Yeast w Hyphae Urine Yeast (Budding) Urine Sperm (Auto) Ur Oval Fat Bodies Auto Urine HCG, Qual Blood Type Antibody Screen 01/09/17 01/09/17 01/09/17 08:12 08:33 10:12 WBC RBC Hgb Hct MCV MCH MCHC RDW Plt Count MPV Neut % (Auto) Lymph % (Auto) [place] % (Auto) Eos % (Auto) Baso % (Auto) Neut # Lymph # [place] # Eos # Baso # Neutrophils % (Manual) Band Neutrophils % Lymphocytes % (Manual) Monocytes % (Manual) Myelocytes % Nucleated RBC % Platelet Estimate Polychromasia Hypochromasia (manual) Anisocytosis (manual) Microcytosis (manual) Macrocytosis (manual) Target Cells Tear Drop Cells APTT Puncture Site pCO2 pO2 HCO3 ABG pH ABG Total CO2 ABG O2 Saturation ABG Base Excess Curtis Test ABG Potassium VBG pH VBG pCO2 VBG HCO3 VBG Total CO2 VBG O2 Sat (Calc) VBG Base Excess VBG Potassium A-a O2 Difference Respiratory Index Sodium Chloride Glucose Lactate Liter Flow FiO2 Potassium Carbon Dioxide Anion Gap BUN Creatinine Est GFR ( Amer) Est GFR (Non-Af Amer) Random Glucose Calcium Total Bilirubin AST ALT Alkaline Phosphatase Total Creatine Kinase CK-MB (Mass) Troponin I, Quant Total Protein Albumin Globulin Albumin/Globulin Ratio Procalcitonin Arterial Blood Potassium Venous Blood Potassium Urine Color Yellow Cancelled Urine Clarity Clear Cancelled Urine pH 5.0 Cancelled Ur Specific Horatio 1.012 Cancelled Urine Protein 2+ H Cancelled Urine Glucose (UA) Normal Cancelled Urine Ketones Negative Cancelled Urine Blood Negative Cancelled Urine Nitrate Negative Cancelled Urine Bilirubin Negative Cancelled Urine Urobilinogen Normal Cancelled Ur Leukocyte Esterase Neg Cancelled Urine WBC (Auto) 2 Cancelled Urine RBC (Auto) 1 Cancelled Urine WBC Clumps (Auto) Cancelled Ur Squamous Epith Cells < 1 Cancelled Ur Transition Epith Cell Cancelled Ur Renal Epithelial Cell Cancelled Calcium Carbonate Cryst Cancelled Calcium Phos Noreen (Auto) Cancelled Calcium Oxalate Crystal Cancelled Leucine Crystals Cancelled Cystine Crystals Cancelled Uric Acid Crystals Cancelled Triple Phos Crystals Cancelled Tyrosine Crystals Cancelled Other Crystals Cancelled Amorphous Sediment Cancelled Urine Bacteria Rare Cancelled Epithelial Casts (Auto) Cancelled Fatty Casts Cancelled Hyaline Casts 0-2 Cancelled Granular Casts (Auto) Cancelled Waxy Casts Cancelled Broad Casts Cancelled RBC Casts Cancelled WBC Casts Cancelled Other Casts Cancelled Urine Trichomonas Cancelled Ur Yeast w Hyphae Cancelled Urine Yeast (Budding) Cancelled Urine Sperm (Auto) Cancelled Ur Oval Fat Bodies Auto Cancelled Urine HCG, Qual Negative Blood Type A NEGATIVE Antibody Screen Negative 01/09/17 01/09/17 01/09/17 10:44 11:20 18:29 WBC RBC Hgb Hct MCV MCH MCHC RDW Plt Count MPV Neut % (Auto) Lymph % (Auto) [place] % (Auto) Eos % (Auto) Baso % (Auto) Neut # Lymph # [place] # Eos # Baso # Neutrophils % (Manual) Band Neutrophils % Lymphocytes % (Manual) Monocytes % (Manual) Myelocytes % Nucleated RBC % Platelet Estimate Polychromasia Hypochromasia (manual) Anisocytosis (manual) Microcytosis (manual) Macrocytosis (manual) Target Cells Tear Drop Cells APTT 49 H D Puncture Site Rr pCO2 31 L pO2 53 L HCO3 22.0 ABG pH 7.42 ABG Total CO2 21.1 L ABG O2 Saturation 92.1 L ABG Base Excess -3.4 L Curtis Test Pos ABG Potassium 3.1 L VBG pH VBG pCO2 VBG HCO3 VBG Total CO2 VBG O2 Sat (Calc) VBG Base Excess VBG Potassium A-a O2 Difference 122.0 Respiratory Index 2.3 Sodium 143.0 Chloride 120.0 H Glucose 103 Lactate 0.7 Liter Flow 3.0 FiO2 30.0 Potassium Carbon Dioxide Anion Gap BUN Creatinine Est GFR ( Amer) Est GFR (Non-Af Amer) Random Glucose Calcium Total Bilirubin AST ALT Alkaline Phosphatase Total Creatine Kinase CK-MB (Mass) Troponin I, Quant Total Protein Albumin Globulin Albumin/Globulin Ratio Procalcitonin 0.97 H Arterial Blood Potassium 3.1 L Venous Blood Potassium Urine Color Urine Clarity Urine pH Ur Specific Horatio Urine Protein Urine Glucose (UA) Urine Ketones Urine Blood Urine Nitrate Urine Bilirubin Urine Urobilinogen Ur Leukocyte Esterase Urine WBC (Auto) Urine RBC (Auto) Urine WBC Clumps (Auto) Ur Squamous Epith Cells Ur Transition Epith Cell Ur Renal Epithelial Cell Calcium Carbonate Cryst Calcium Phos Noreen (Auto) Calcium Oxalate Crystal Leucine Crystals Cystine Crystals Uric Acid Crystals Triple Phos Crystals Tyrosine Crystals Other Crystals Amorphous Sediment Urine Bacteria Epithelial Casts (Auto) Fatty Casts Hyaline Casts Granular Casts (Auto) Waxy Casts Broad Casts RBC Casts WBC Casts Other Casts Urine Trichomonas Ur Yeast w Hyphae Urine Yeast (Budding) Urine Sperm (Auto) Ur Oval Fat Bodies Auto Urine HCG, Qual Blood Type Antibody Screen Assessment & Plan (1) Acute chest syndrome due to sickle cell crisis Assessment and Plan: with respiratory insufficiency, and tachycardia given clinical decline despite supportive treatments, the patient would benefit from red cell exchange ICU monitoring Status: Acute (2) Sickle cell pain crisis Assessment and Plan: IV fluids, pain meds, folic acid, 02 supplementation for red cell exchange Status: Acute (3) Leukocytosis Assessment and Plan: on antibiotics may be reactive to sickle crisis Thank you for this interesting consult. Status: Acute
[2017-01-10] MEDS: Sodium Chloride 0.9% 1,000 ML IV SCH ×4 (04:00→22:40)
[2017-01-10 06:43] LABS: BASO # 0.1 K/uL (0.0-0.2); BASO % 0.6 % (0.0-2.0); HEMATOCRIT 26.6 % (34.0-47.0); LYMPH # 0.6 K/uL (1.0-4.3); LYMPH % 3.6 % (20.0-40.0); MEAN CELL VOLUME 82.2 fL (81.0-99.0); MEAN CORPUSCULAR HEMOGLOBIN 27.7 pg (27.0-31.0); MEAN CORPUSCULAR HGB CONC 33.7 g/dL (33.0-37.0); MEAN PLATELET VOLUME 8.3 fL (7.2-11.7); MONO # 2.5 K/uL (0.0-0.8); MONO % 15.5 % (0.0-10.0); PLATELET COUNT 115 K/uL (130-400); RED CELL DISTRIBUTION WIDTH 18.2 % (11.5-14.5); WHITE BLOOD COUNT 15.8 K/uL (4.8-10.8)
[2017-01-10 06:48] LABS: CHLORIDE 113 mmol/L (98-107); POTASSIUM 3.3 mmol/L (3.6-5.2); SODIUM 144 mmol/L (132-148)
[2017-01-10 06:51] LABS: BLOOD UREA NITROGEN 12 mg/dL (7-17); CARBON DIOXIDE 24 mmol/L (22-30); GFR AFRICAN-AMERICAN > 60; GLUCOSE,RANDOM 121 mg/dL (65-105); PHOSPHOROUS 2.9 mg/dL (2.5-4.5)
[2017-01-10 06:52] LABS: CALCIUM 7.1 mg/dl (8.6-10.4); MAGNESIUM 1.6 mg/dL (1.6-2.3)
[2017-01-10] MEDS: Morphine 30 mg SR Tab PO SCH ×2 (07:32→17:22)
--- NOTE | 2017-01-10 08:25 | CP.CCUPN ---
CCU Subjective - Physician Review Events Since Last Encounter (Free Text): 01/10/17 11:09 patient is feeling better today, her pain has reduced a lot. Breathing normally. 01/10/17 11:10 CCU Objective - Vital Signs / Intake & Output Intake and Output (Last 8hrs): Intake & Output 01/09/17 01/10/17 01/10/17 22:59 06:59 14:59 Intake Total 1497.2 1100 150 Output Total 1785 800 100 Balance -287.8 300 50 Intake: Intake, IV Amount 1137.2 1100 150 LEFT ARM 37.2 Left Upper arm 1100 1100 150 Oral 360 Output: Urine 1785 800 100 2-way Urethral 1785 800 100 Other: # Bowel Movements 0 - Physical Exam Head: Positive for: Atraumatic, Normocephalic Pupils: Positive for: PERRL Extroacular Muscles: Positive for: EOMI Conjunctiva: Positive for: Normal Mouth: Positive for: Moist Mucous Membranes Respiratory/Chest: Positive for: Good Air Exchange, Decreased Breath Sounds Cardiovascular: Positive for: Tachycardic Abdomen: Positive for: Normal Bowel Sounds. Negative for: Tenderness, Distention Upper Extremity: Positive for: Normal Inspection Lower Extremity: Positive for: Other (contracted) Neurological: Positive for: GCS=15 Psychiatric: Positive for: Alert, Oriented x 3 - Medications Active Medications: Active Medications Generic Name Dose Route Start Last Admin Trade Name Freq PRN Reason Stop Dose Admin Acetaminophen 650 mg 01/09/17 20:44 01/09/17 21:02 Tylenol 325mg Tab PO 650 mg Q6 PRN Administration Fever >100.4 F Albuterol/Ipratropium 3 ml 01/07/17 20:00 01/10/17 07:30 Duoneb 3 Mg/0.5 Mg (3 Ml) Ud INH 3 ml RQ6 JESSICA Administration Ascorbic Acid 500 mg 01/08/17 10:00 01/09/17 13:23 Vitamin C 500 Mg Tab PO 500 mg DAILY JESSICA Administration Diltiazem HCl 5 mg 01/09/17 10:35 Cardizem IVP Q5M PRN Heart rate Diphenhydramine HCl 25 mg 01/07/17 12:48 01/09/17 06:52 Benadryl IVP 25 mg Q4 PRN Administration Itching / Pruritus Donepezil HCl 10 mg 01/07/17 22:00 01/09/17 22:30 Aricept PO 10 mg HS JESSICA Administration Fentanyl 1 patch 01/09/17 16:30 01/09/17 17:55 Duragesic TD 1 patch Q72H JESSICA Administration Folic Acid 1 mg 01/08/17 10:00 01/09/17 09:55 Folic Acid PO Not Given DAILY JESSICA Hydromorphone HCl 3 mg 01/07/17 15:47 01/10/17 05:31 Dilaudid IVP 3 mg Q4H PRN Administration Pain, severe (8-10) Hydroxyurea 1,000 mg 01/09/17 11:45 01/09/17 17:53 Hydrea PO 1,000 mg DAILY JESSICA Administration Vancomycin HCl 1 gm/ Sodium 250 mls @ 166.7 mls/hr 01/09/17 10:00 01/09/17 13 :24 Chloride IVPB 166.7 mls/hr DAILY JESSICA Administration Piperacillin Sod/Tazobactam Sod 3.375 gm in 50 mls @ 100 mls/hr 01/09/17 12: 00 01/10/17 05:39 Zosyn 3.375 Gm Iv Premix IVPB 100 mls/hr Q6H JESSICA Administration Sodium Chloride 1,000 mls @ 150 mls/hr 01/09/17 12:15 01/10/17 04:00 Sodium Chloride 0.9% IV Not Given .[id number] JESSICA Metoprolol Tartrate 5 mg 01/09/17 19:15 01/10/17 01:00 Lopressor IVP 5 mg Q6H JESSICA Administration Morphine Sulfate 60 mg 01/07/17 18:00 01/10/17 07:32 Morphine Extended Release Tab PO 60 mg Q12H JESSICA Administration Prednisone 5 mg 01/08/17 10:00 01/09/17 10:00 Prednisone Tab PO Not Given DAILY JESSICA Sennosides 8.6 mg 01/07/17 22:00 01/09/17 23:30 Senokot Tab PO 8.6 mg HS JESSICA Administration Thiamine HCl 100 mg 01/09/17 10:00 01/09/17 10:00 Vitamin B1 Tab PO 100 mg DAILY JESSICA Administration - Patient Studies Lab Studies: Lab Studies 01/10/17 01/10/17 01/09/17 Range/Units 06:36 06:36 18:29 WBC 15.8 H (4.8-10.8) K/uL RBC 3.23 L (3.80-5.20) Mil/uL Hgb 9.0 L (11.0-16.0) g/dL Hct 26.6 L (34.0-47.0) % MCV 82.2 D (81.0-99.0) fL MCH 27.7 (27.0-31.0) pg MCHC 33.7 (33.0-37.0) g/dL RDW 18.2 H (11.5-14.5) % Plt Count 115 L D (130-400) K/uL MPV 8.3 (7.2-11.7) fL Neut % (Auto) 80.3 H (50.0-75.0) % Lymph % (Auto) 3.6 L (20.0-40.0) % [place] % (Auto) 15.5 H (0.0-10.0) % Eos % (Auto) 0.0 (0.0-4.0) % Baso % (Auto) 0.6 (0.0-2.0) % Neut # 12.7 H (1.8-7.0) K/uL Lymph # 0.6 L (1.0-4.3) K/uL [place] # 2.5 H (0.0-0.8) K/uL Eos # 0.0 (0.0-0.7) K/uL Baso # 0.1 (0.0-0.2) K/uL Neutrophils % (Manual) (50-75) % Band Neutrophils % (0-2) % Lymphocytes % (Manual) (20-40) % Monocytes % (Manual) (0-10) % Myelocytes % (0-0) % Nucleated RBC % (0-0) % Platelet Estimate (NORMAL) Polychromasia Hypochromasia (manual) Anisocytosis (manual) Microcytosis (manual) Macrocytosis (manual) Target Cells Tear Drop Cells APTT 49 H D (21-34) SECONDS Puncture Site pCO2 (35-45) mm/Hg pO2 (80-100) mm/Hg HCO3 (21-28) mmol/L ABG pH (7.35-7.45) ABG Total CO2 (22-28) mmol/L ABG O2 Saturation (95-98) % ABG Base Excess (-2.0-3.0) mmol/L Curtis Test ABG Potassium (3.6-5.2) mmol/L A-a O2 Difference mm/Hg Respiratory Index Glucose (65-105) mg/dl Lactate (0.7-2.1) mmol/L Liter Flow FiO2 % Sodium 144 (132-148) mmol/L Potassium 3.3 L (3.6-5.2) mmol/L Chloride 113 H (98-107) mmol/L Carbon Dioxide 24 (22-30) mmol/L Anion Gap 10 (10-20) BUN 12 (7-17) mg/dL Creatinine 0.5 L (0.7-1.2) MG/DL Est GFR ( Amer) > 60 Est GFR (Non-Af Amer) > 60 Random Glucose 121 H (65-105) mg/dL Calcium 7.1 L (8.6-10.4) mg/dl Phosphorus 2.9 (2.5-4.5) mg/dL Magnesium 1.6 (1.6-2.3) mg/dL Total Bilirubin (0.2-1.3) mg/dL AST (14-36) U/L ALT (9-52) U/L Alkaline Phosphatase (38-126) U/L Total Creatine Kinase (30-135) U/L CK-MB (Mass) (0.0-3.38) ng/mL Troponin I, Quant (0.00-0.120) ng/mL Total Protein (6.3-8.3) g/dL Albumin (3.5-5.0) g/dL Globulin (2.2-3.9) gm/dL Albumin/Globulin Ratio (1.0-2.1) Procalcitonin (0.19-0.49) NG/ML Arterial Blood Potassium (3.6-5.2) mmol/L Urine Color (YELLOW) Urine Clarity (Clear) Urine pH (5.0-8.0) Ur Specific Barnes (1.003-1.030) Urine Protein (NEGATIVE) mg/dL Urine Glucose (UA) (Normal) mg/dL Urine Ketones (NEGATIVE) mg/dL Urine Blood (NEGATIVE) Urine Nitrate (NEGATIVE) Urine Bilirubin (NEGATIVE) Urine Urobilinogen (0.2-1.0) mg/dL Ur Leukocyte Esterase (Negative) Maisha/uL Urine WBC (Auto) (0-5) /hpf Urine RBC (Auto) (0-3) /hpf Urine WBC Clumps (Auto) Ur Squamous Epith Cells (0-5) /hpf Ur Transition Epith Cell Ur Renal Epithelial Cell Calcium Carbonate Cryst Calcium Phos Noreen (Auto) Calcium Oxalate Crystal Leucine Crystals Cystine Crystals Uric Acid Crystals Triple Phos Crystals Tyrosine Crystals Other Crystals Amorphous Sediment Urine Bacteria (<OCC) Epithelial Casts (Auto) Fatty Casts Hyaline Casts (0-2) /lpf Granular Casts (Auto) Waxy Casts Broad Casts RBC Casts WBC Casts Other Casts Urine Trichomonas Ur Yeast w Hyphae Urine Yeast (Budding) Urine Sperm (Auto) Ur Oval Fat Bodies Auto Urine HCG, Qual (NEGATIVE) Blood Type Antibody Screen 01/09/17 01/09/17 01/09/17 Range/Units 11:20 10:44 10:12 WBC (4.8-10.8) K/uL RBC (3.80-5.20) Mil/uL Hgb (11.0-16.0) g/dL Hct (34.0-47.0) % MCV (81.0-99.0) fL MCH (27.0-31.0) pg MCHC (33.0-37.0) g/dL RDW (11.5-14.5) % Plt Count (130-400) K/uL MPV (7.2-11.7) fL Neut % (Auto) (50.0-75.0) % Lymph % (Auto) (20.0-40.0) % [place] % (Auto) (0.0-10.0) % Eos % (Auto) (0.0-4.0) % Baso % (Auto) (0.0-2.0) % Neut # (1.8-7.0) K/uL Lymph # (1.0-4.3) K/uL [place] # (0.0-0.8) K/uL Eos # (0.0-0.7) K/uL Baso # (0.0-0.2) K/uL Neutrophils % (Manual) (50-75) % Band Neutrophils % (0-2) % Lymphocytes % (Manual) (20-40) % Monocytes % (Manual) (0-10) % Myelocytes % (0-0) % Nucleated RBC % (0-0) % Platelet Estimate (NORMAL) Polychromasia Hypochromasia (manual) Anisocytosis (manual) Microcytosis (manual) Macrocytosis (manual) Target Cells Tear Drop Cells APTT (21-34) SECONDS Puncture Site Rr pCO2 31 L (35-45) mm/Hg pO2 53 L (80-100) mm/Hg HCO3 22.0 (21-28) mmol/L ABG pH 7.42 (7.35-7.45) ABG Total CO2 21.1 L (22-28) mmol/L ABG O2 Saturation 92.1 L (95-98) % ABG Base Excess -3.4 L (-2.0-3.0) mmol/L Curtis Test Pos ABG Potassium 3.1 L (3.6-5.2) mmol/L A-a O2 Difference 122.0 mm/Hg Respiratory Index 2.3 Glucose 103 (65-105) mg/dl Lactate 0.7 (0.7-2.1) mmol/L Liter Flow 3.0 FiO2 30.0 % Sodium 143.0 (132-148) mmol/L Potassium (3.6-5.2) mmol/L Chloride 120.0 H (98-107) mmol/L Carbon Dioxide (22-30) mmol/L Anion Gap (10-20) BUN (7-17) mg/dL Creatinine (0.7-1.2) MG/DL Est GFR ( Amer) Est GFR (Non-Af Amer) Random Glucose (65-105) mg/dL Calcium (8.6-10.4) mg/dl Phosphorus (2.5-4.5) mg/dL Magnesium (1.6-2.3) mg/dL Total Bilirubin (0.2-1.3) mg/dL AST (14-36) U/L ALT (9-52) U/L Alkaline Phosphatase (38-126) U/L Total Creatine Kinase (30-135) U/L CK-MB (Mass) (0.0-3.38) ng/mL Troponin I, Quant (0.00-0.120) ng/mL Total Protein (6.3-8.3) g/dL Albumin (3.5-5.0) g/dL Globulin (2.2-3.9) gm/dL Albumin/Globulin Ratio (1.0-2.1) Procalcitonin 0.97 H (0.19-0.49) NG/ML Arterial Blood Potassium 3.1 L (3.6-5.2) mmol/L Urine Color (YELLOW) Urine Clarity (Clear) Urine pH (5.0-8.0) Ur Specific Barnes (1.003-1.030) Urine Protein (NEGATIVE) mg/dL Urine Glucose (UA) (Normal) mg/dL Urine Ketones (NEGATIVE) mg/dL Urine Blood (NEGATIVE) Urine Nitrate (NEGATIVE) Urine Bilirubin (NEGATIVE) Urine Urobilinogen (0.2-1.0) mg/dL Ur Leukocyte Esterase (Negative) Maisha/uL Urine WBC (Auto) (0-5) /hpf Urine RBC (Auto) (0-3) /hpf Urine WBC Clumps (Auto) Ur Squamous Epith Cells (0-5) /hpf Ur Transition Epith Cell Ur Renal Epithelial Cell Calcium Carbonate Cryst Calcium Phos Noreen (Auto) Calcium Oxalate Crystal Leucine Crystals Cystine Crystals Uric Acid Crystals Triple Phos Crystals Tyrosine Crystals Other Crystals Amorphous Sediment Urine Bacteria (<OCC) Epithelial Casts (Auto) Fatty Casts Hyaline Casts (0-2) /lpf Granular Casts (Auto) Waxy Casts Broad Casts RBC Casts WBC Casts Other Casts Urine Trichomonas Ur Yeast w Hyphae Urine Yeast (Budding) Urine Sperm (Auto) Ur Oval Fat Bodies Auto Urine HCG, Qual (NEGATIVE) Blood Type A NEGATIVE Antibody Screen Negative 01/09/17 01/09/17 01/09/17 Range/Units 08:33 08:12 07:47 WBC (4.8-10.8) K/uL RBC (3.80-5.20) Mil/uL Hgb (11.0-16.0) g/dL Hct (34.0-47.0) % MCV (81.0-99.0) fL MCH (27.0-31.0) pg MCHC (33.0-37.0) g/dL RDW (11.5-14.5) % Plt Count (130-400) K/uL MPV (7.2-11.7) fL Neut % (Auto) (50.0-75.0) % Lymph % (Auto) (20.0-40.0) % [place] % (Auto) (0.0-10.0) % Eos % (Auto) (0.0-4.0) % Baso % (Auto) (0.0-2.0) % Neut # (1.8-7.0) K/uL Lymph # (1.0-4.3) K/uL [place] # (0.0-0.8) K/uL Eos # (0.0-0.7) K/uL Baso # (0.0-0.2) K/uL Neutrophils % (Manual) (50-75) % Band Neutrophils % (0-2) % Lymphocytes % (Manual) (20-40) % Monocytes % (Manual) (0-10) % Myelocytes % (0-0) % Nucleated RBC % (0-0) % Platelet Estimate (NORMAL) Polychromasia Hypochromasia (manual) Anisocytosis (manual) Microcytosis (manual) Macrocytosis (manual) Target Cells Tear Drop Cells APTT (21-34) SECONDS Puncture Site pCO2 (35-45) mm/Hg pO2 (80-100) mm/Hg HCO3 (21-28) mmol/L ABG pH (7.35-7.45) ABG Total CO2 (22-28) mmol/L ABG O2 Saturation (95-98) % ABG Base Excess (-2.0-3.0) mmol/L Curtis Test ABG Potassium (3.6-5.2) mmol/L A-a O2 Difference mm/Hg Respiratory Index Glucose (65-105) mg/dl Lactate (0.7-2.1) mmol/L Liter Flow FiO2 % Sodium 138 (132-148) mmol/L Potassium 3.5 L (3.6-5.2) mmol/L Chloride 104 (98-107) mmol/L Carbon Dioxide 25 (22-30) mmol/L Anion Gap 13 (10-20) BUN 11 (7-17) mg/dL Creatinine 0.6 L (0.7-1.2) MG/DL Est GFR ( Amer) > 60 Est GFR (Non-Af Amer) > 60 Random Glucose 112 H (65-105) mg/dL Calcium 8.1 L (8.6-10.4) mg/dl Phosphorus (2.5-4.5) mg/dL Magnesium (1.6-2.3) mg/dL Total Bilirubin 1.2 (0.2-1.3) mg/dL AST 76 H (14-36) U/L ALT 87 H D (9-52) U/L Alkaline Phosphatase 96 (38-126) U/L Total Creatine Kinase 125 (30-135) U/L CK-MB (Mass) 0.45 (0.0-3.38) ng/mL Troponin I, Quant 0.0920 (0.00-0.120) ng/mL Total Protein 6.6 (6.3-8.3) g/dL Albumin 3.2 L D (3.5-5.0) g/dL Globulin 3.5 (2.2-3.9) gm/dL Albumin/Globulin Ratio 0.9 L (1.0-2.1) Procalcitonin (0.19-0.49) NG/ML Arterial Blood Potassium (3.6-5.2) mmol/L Urine Color Cancelled Yellow (YELLOW) Urine Clarity Cancelled Clear (Clear) Urine pH Cancelled 5.0 (5.0-8.0) Ur Specific Barnes Cancelled 1.012 (1.003-1.030) Urine Protein Cancelled 2+ H (NEGATIVE) mg/dL Urine Glucose (UA) Cancelled Normal (Normal) mg/dL Urine Ketones Cancelled Negative (NEGATIVE) mg/dL Urine Blood Cancelled Negative (NEGATIVE) Urine Nitrate Cancelled Negative (NEGATIVE) Urine Bilirubin Cancelled Negative (NEGATIVE) Urine Urobilinogen Cancelled Normal (0.2-1.0) mg/dL Ur Leukocyte Esterase Cancelled Neg (Negative) Maisha/uL Urine WBC (Auto) Cancelled 2 (0-5) /hpf Urine RBC (Auto) Cancelled 1 (0-3) /hpf Urine WBC Clumps (Auto) Cancelled Ur Squamous Epith Cells Cancelled < 1 (0-5) /hpf Ur Transition Epith Cell Cancelled Ur Renal Epithelial Cell Cancelled Calcium Carbonate Cryst Cancelled Calcium Phos Noreen (Auto) Cancelled Calcium Oxalate Crystal Cancelled Leucine Crystals Cancelled Cystine Crystals Cancelled Uric Acid Crystals Cancelled Triple Phos Crystals Cancelled Tyrosine Crystals Cancelled Other Crystals Cancelled Amorphous Sediment Cancelled Urine Bacteria Cancelled Rare (<OCC) Epithelial Casts (Auto) Cancelled Fatty Casts Cancelled Hyaline Casts Cancelled 0-2 (0-2) /lpf Granular Casts (Auto) Cancelled Waxy Casts Cancelled Broad Casts Cancelled RBC Casts Cancelled WBC Casts Cancelled Other Casts Cancelled Urine Trichomonas Cancelled Ur Yeast w Hyphae Cancelled Urine Yeast (Budding) Cancelled Urine Sperm (Auto) Cancelled Ur Oval Fat Bodies Auto Cancelled Urine HCG, Qual Negative (NEGATIVE) Blood Type Antibody Screen 01/09/17 Range/Units 07:47 WBC (4.8-10.8) K/uL RBC (3.80-5.20) Mil/uL Hgb (11.0-16.0) g/dL Hct (34.0-47.0) % MCV (81.0-99.0) fL MCH (27.0-31.0) pg MCHC (33.0-37.0) g/dL RDW (11.5-14.5) % Plt Count (130-400) K/uL MPV (7.2-11.7) fL Neut % (Auto) 92.0 H (50.0-75.0) % Lymph % (Auto) 5.0 L (20.0-40.0) % [place] % (Auto) 2.0 (0.0-10.0) % Eos % (Auto) 1.0 (0.0-4.0) % Baso % (Auto) 0.0 (0.0-2.0) % Neut # 0.2 L (1.8-7.0) K/uL Lymph # 1.2 (1.0-4.3) K/uL [place] # 0.5 (0.0-0.8) K/uL Eos # 0.3 (0.0-0.7) K/uL Baso # 0.0 (0.0-0.2) K/uL Neutrophils % (Manual) 86 H (50-75) % Band Neutrophils % 1 (0-2) % Lymphocytes % (Manual) 6 L (20-40) % Monocytes % (Manual) 6 (0-10) % Myelocytes % 1 H (0-0) % Nucleated RBC % 11 H (0-0) % Platelet Estimate Normal (NORMAL) Polychromasia Slight Hypochromasia (manual) Moderate Anisocytosis (manual) Moderate Microcytosis (manual) Slight Macrocytosis (manual) Slight Target Cells Slight Tear Drop Cells Slight APTT (21-34) SECONDS Puncture Site pCO2 (35-45) mm/Hg pO2 (80-100) mm/Hg HCO3 (21-28) mmol/L ABG pH (7.35-7.45) ABG Total CO2 (22-28) mmol/L ABG O2 Saturation (95-98) % ABG Base Excess (-2.0-3.0) mmol/L Curtis Test ABG Potassium (3.6-5.2) mmol/L A-a O2 Difference mm/Hg Respiratory Index Glucose (65-105) mg/dl Lactate (0.7-2.1) mmol/L Liter Flow FiO2 % Sodium (132-148) mmol/L Potassium (3.6-5.2) mmol/L Chloride (98-107) mmol/L Carbon Dioxide (22-30) mmol/L Anion Gap (10-20) BUN (7-17) mg/dL Creatinine (0.7-1.2) MG/DL Est GFR ( Amer) Est GFR (Non-Af Amer) Random Glucose (65-105) mg/dL Calcium (8.6-10.4) mg/dl Phosphorus (2.5-4.5) mg/dL Magnesium (1.6-2.3) mg/dL Total Bilirubin (0.2-1.3) mg/dL AST (14-36) U/L ALT (9-52) U/L Alkaline Phosphatase (38-126) U/L Total Creatine Kinase (30-135) U/L CK-MB (Mass) (0.0-3.38) ng/mL Troponin I, Quant (0.00-0.120) ng/mL Total Protein (6.3-8.3) g/dL Albumin (3.5-5.0) g/dL Globulin (2.2-3.9) gm/dL Albumin/Globulin Ratio (1.0-2.1) Procalcitonin (0.19-0.49) NG/ML Arterial Blood Potassium (3.6-5.2) mmol/L Urine Color (YELLOW) Urine Clarity (Clear) Urine pH (5.0-8.0) Ur Specific Barnes (1.003-1.030) Urine Protein (NEGATIVE) mg/dL Urine Glucose (UA) (Normal) mg/dL Urine Ketones (NEGATIVE) mg/dL Urine Blood (NEGATIVE) Urine Nitrate (NEGATIVE) Urine Bilirubin (NEGATIVE) Urine Urobilinogen (0.2-1.0) mg/dL Ur Leukocyte Esterase (Negative) Maisha/uL Urine WBC (Auto) (0-5) /hpf Urine RBC (Auto) (0-3) /hpf Urine WBC Clumps (Auto) Ur Squamous Epith Cells (0-5) /hpf Ur Transition Epith Cell Ur Renal Epithelial Cell Calcium Carbonate Cryst Calcium Phos Noreen (Auto) Calcium Oxalate Crystal Leucine Crystals Cystine Crystals Uric Acid Crystals Triple Phos Crystals Tyrosine Crystals Other Crystals Amorphous Sediment Urine Bacteria (<OCC) Epithelial Casts (Auto) Fatty Casts Hyaline Casts (0-2) /lpf Granular Casts (Auto) Waxy Casts Broad Casts RBC Casts WBC Casts Other Casts Urine Trichomonas Ur Yeast w Hyphae Urine Yeast (Budding) Urine Sperm (Auto) Ur Oval Fat Bodies Auto Urine HCG, Qual (NEGATIVE) Blood Type Antibody Screen Laboratory Results - last 24 hr 01/09/17 01/09/17 01/09/17 07:47 07:47 08:12 WBC RBC Hgb Hct MCV MCH MCHC RDW Plt Count MPV Neut % (Auto) 92.0 H Lymph % (Auto) 5.0 L [place] % (Auto) 2.0 Eos % (Auto) 1.0 Baso % (Auto) 0.0 Neut # 0.2 L Lymph # 1.2 [place] # 0.5 Eos # 0.3 Baso # 0.0 Neutrophils % (Manual) 86 H Band Neutrophils % 1 Lymphocytes % (Manual) 6 L Monocytes % (Manual) 6 Myelocytes % 1 H Nucleated RBC % 11 H Platelet Estimate Normal Polychromasia Slight Hypochromasia (manual) Moderate Anisocytosis (manual) Moderate Microcytosis (manual) Slight Macrocytosis (manual) Slight Target Cells Slight Tear Drop Cells Slight APTT Puncture Site pCO2 pO2 HCO3 ABG pH ABG Total CO2 ABG O2 Saturation ABG Base Excess Curtis Test ABG Potassium A-a O2 Difference Respiratory Index Glucose Lactate Liter Flow FiO2 Sodium 138 Potassium 3.5 L Chloride 104 Carbon Dioxide 25 Anion Gap 13 BUN 11 Creatinine 0.6 L Est GFR ( Amer) > 60 Est GFR (Non-Af Amer) > 60 Random Glucose 112 H Calcium 8.1 L Phosphorus Magnesium Total Bilirubin 1.2 AST 76 H ALT 87 H D Alkaline Phosphatase 96 Total Creatine Kinase 125 CK-MB (Mass) 0.45 Troponin I, Quant 0.0920 Total Protein 6.6 Albumin 3.2 L D Globulin 3.5 Albumin/Globulin Ratio 0.9 L Procalcitonin Arterial Blood Potassium Urine Color Yellow Urine Clarity Clear Urine pH 5.0 Ur Specific Barnes 1.012 Urine Protein 2+ H Urine Glucose (UA) Normal Urine Ketones Negative Urine Blood Negative Urine Nitrate Negative Urine Bilirubin Negative Urine Urobilinogen Normal Ur Leukocyte Esterase Neg Urine WBC (Auto) 2 Urine RBC (Auto) 1 Urine WBC Clumps (Auto) Ur Squamous Epith Cells < 1 Ur Transition Epith Cell Ur Renal Epithelial Cell Calcium Carbonate Cryst Calcium Phos Noreen (Auto) Calcium Oxalate Crystal Leucine Crystals Cystine Crystals Uric Acid Crystals Triple Phos Crystals Tyrosine Crystals Other Crystals Amorphous Sediment Urine Bacteria Rare Epithelial Casts (Auto) Fatty Casts Hyaline Casts 0-2 Granular Casts (Auto) Waxy Casts Broad Casts RBC Casts WBC Casts Other Casts Urine Trichomonas Ur Yeast w Hyphae Urine Yeast (Budding) Urine Sperm (Auto) Ur Oval Fat Bodies Auto Urine HCG, Qual Blood Type Antibody Screen 01/09/17 01/09/17 01/09/17 08:33 10:12 10:44 WBC RBC Hgb Hct MCV MCH MCHC RDW Plt Count MPV Neut % (Auto) Lymph % (Auto) [place] % (Auto) Eos % (Auto) Baso % (Auto) Neut # Lymph # [place] # Eos # Baso # Neutrophils % (Manual) Band Neutrophils % Lymphocytes % (Manual) Monocytes % (Manual) Myelocytes % Nucleated RBC % Platelet Estimate Polychromasia Hypochromasia (manual) Anisocytosis (manual) Microcytosis (manual) Macrocytosis (manual) Target Cells Tear Drop Cells APTT Puncture Site Rr pCO2 31 L pO2 53 L HCO3 22.0 ABG pH 7.42 ABG Total CO2 21.1 L ABG O2 Saturation 92.1 L ABG Base Excess -3.4 L Curtis Test Pos ABG Potassium 3.1 L A-a O2 Difference 122.0 Respiratory Index 2.3 Glucose 103 Lactate 0.7 Liter Flow 3.0 FiO2 30.0 Sodium 143.0 Potassium Chloride 120.0 H Carbon Dioxide Anion Gap BUN Creatinine Est GFR ( Amer) Est GFR (Non-Af Amer) Random Glucose Calcium Phosphorus Magnesium Total Bilirubin AST ALT Alkaline Phosphatase Total Creatine Kinase CK-MB (Mass) Troponin I, Quant Total Protein Albumin Globulin Albumin/Globulin Ratio Procalcitonin Arterial Blood Potassium 3.1 L Urine Color Cancelled Urine Clarity Cancelled Urine pH Cancelled Ur Specific Barnes Cancelled Urine Protein Cancelled Urine Glucose (UA) Cancelled Urine Ketones Cancelled Urine Blood Cancelled Urine Nitrate Cancelled Urine Bilirubin Cancelled Urine Urobilinogen Cancelled Ur Leukocyte Esterase Cancelled Urine WBC (Auto) Cancelled Urine RBC (Auto) Cancelled Urine WBC Clumps (Auto) Cancelled Ur Squamous Epith Cells Cancelled Ur Transition Epith Cell Cancelled Ur Renal Epithelial Cell Cancelled Calcium Carbonate Cryst Cancelled Calcium Phos Noreen (Auto) Cancelled Calcium Oxalate Crystal Cancelled Leucine Crystals Cancelled Cystine Crystals Cancelled Uric Acid Crystals Cancelled Triple Phos Crystals Cancelled Tyrosine Crystals Cancelled Other Crystals Cancelled Amorphous Sediment Cancelled Urine Bacteria Cancelled Epithelial Casts (Auto) Cancelled Fatty Casts Cancelled Hyaline Casts Cancelled Granular Casts (Auto) Cancelled Waxy Casts Cancelled Broad Casts Cancelled RBC Casts Cancelled WBC Casts Cancelled Other Casts Cancelled Urine Trichomonas Cancelled Ur Yeast w Hyphae Cancelled Urine Yeast (Budding) Cancelled Urine Sperm (Auto) Cancelled Ur Oval Fat Bodies Auto Cancelled Urine HCG, Qual Negative Blood Type A NEGATIVE Antibody Screen Negative 01/09/17 01/09/17 01/10/17 11:20 18:29 06:36 WBC 15.8 H RBC 3.23 L Hgb 9.0 L Hct 26.6 L MCV 82.2 D MCH 27.7 MCHC 33.7 RDW 18.2 H Plt Count 115 L D MPV 8.3 Neut % (Auto) 80.3 H Lymph % (Auto) 3.6 L [place] % (Auto) 15.5 H Eos % (Auto) 0.0 Baso % (Auto) 0.6 Neut # 12.7 H Lymph # 0.6 L [place] # 2.5 H Eos # 0.0 Baso # 0.1 Neutrophils % (Manual) Band Neutrophils % Lymphocytes % (Manual) Monocytes % (Manual) Myelocytes % Nucleated RBC % Platelet Estimate Polychromasia Hypochromasia (manual) Anisocytosis (manual) Microcytosis (manual) Macrocytosis (manual) Target Cells Tear Drop Cells APTT 49 H D Puncture Site pCO2 pO2 HCO3 ABG pH ABG Total CO2 ABG O2 Saturation ABG Base Excess Curtis Test ABG Potassium A-a O2 Difference Respiratory Index Glucose Lactate Liter Flow FiO2 Sodium Potassium Chloride Carbon Dioxide Anion Gap BUN Creatinine Est GFR ( Amer) Est GFR (Non-Af Amer) Random Glucose Calcium Phosphorus Magnesium Total Bilirubin AST ALT Alkaline Phosphatase Total Creatine Kinase CK-MB (Mass) Troponin I, Quant Total Protein Albumin Globulin Albumin/Globulin Ratio Procalcitonin 0.97 H Arterial Blood Potassium Urine Color Urine Clarity Urine pH Ur Specific Barnes Urine Protein Urine Glucose (UA) Urine Ketones Urine Blood Urine Nitrate Urine Bilirubin Urine Urobilinogen Ur Leukocyte Esterase Urine WBC (Auto) Urine RBC (Auto) Urine WBC Clumps (Auto) Ur Squamous Epith Cells Ur Transition Epith Cell Ur Renal Epithelial Cell Calcium Carbonate Cryst Calcium Phos Noreen (Auto) Calcium Oxalate Crystal Leucine Crystals Cystine Crystals Uric Acid Crystals Triple Phos Crystals Tyrosine Crystals Other Crystals Amorphous Sediment Urine Bacteria Epithelial Casts (Auto) Fatty Casts Hyaline Casts Granular Casts (Auto) Waxy Casts Broad Casts RBC Casts WBC Casts Other Casts Urine Trichomonas Ur Yeast w Hyphae Urine Yeast (Budding) Urine Sperm (Auto) Ur Oval Fat Bodies Auto Urine HCG, Qual Blood Type Antibody Screen 01/10/17 06:36 WBC RBC Hgb Hct MCV MCH MCHC RDW Plt Count MPV Neut % (Auto) Lymph % (Auto) [place] % (Auto) Eos % (Auto) Baso % (Auto) Neut # Lymph # [place] # Eos # Baso # Neutrophils % (Manual) Band Neutrophils % Lymphocytes % (Manual) Monocytes % (Manual) Myelocytes % Nucleated RBC % Platelet Estimate Polychromasia Hypochromasia (manual) Anisocytosis (manual) Microcytosis (manual) Macrocytosis (manual) Target Cells Tear Drop Cells APTT Puncture Site pCO2 pO2 HCO3 ABG pH ABG Total CO2 ABG O2 Saturation ABG Base Excess Curtis Test ABG Potassium A-a O2 Difference Respiratory Index Glucose Lactate Liter Flow FiO2 Sodium 144 Potassium 3.3 L Chloride 113 H Carbon Dioxide 24 Anion Gap 10 BUN 12 Creatinine 0.5 L Est GFR ( Amer) > 60 Est GFR (Non-Af Amer) > 60 Random Glucose 121 H Calcium 7.1 L Phosphorus 2.9 Magnesium 1.6 Total Bilirubin AST ALT Alkaline Phosphatase Total Creatine Kinase CK-MB (Mass) Troponin I, Quant Total Protein Albumin Globulin Albumin/Globulin Ratio Procalcitonin Arterial Blood Potassium Urine Color Urine Clarity Urine pH Ur Specific [place] Urine Protein Urine Glucose (UA) Urine Ketones Urine Blood Urine Nitrate Urine Bilirubin Urine Urobilinogen Ur Leukocyte Esterase Urine WBC (Auto) Urine RBC (Auto) Urine WBC Clumps (Auto) Ur Squamous Epith Cells Ur Transition Epith Cell Ur Renal Epithelial Cell Calcium Carbonate Cryst Calcium Phos Noreen (Auto) Calcium Oxalate Crystal Leucine Crystals Cystine Crystals Uric Acid Crystals Triple Phos Crystals Tyrosine Crystals Other Crystals Amorphous Sediment Urine Bacteria Epithelial Casts (Auto) Fatty Casts Hyaline Casts Granular Casts (Auto) Waxy Casts Broad Casts RBC Casts WBC Casts Other Casts Urine Trichomonas Ur Yeast w Hyphae Urine Yeast (Budding) Urine Sperm (Auto) Ur Oval Fat Bodies Auto Urine HCG, Qual Blood Type Antibody Screen EKG/Cardiology Studies: Cardiology / EKG Studies 01/09/17 07:29 ELECTROCARDIOGRAM Stat Comment: Mode Of Transportation: Reason For Exam: chest pain, tachy Fingerstick Blood Sugar Results: 143 Review of Systems - Review of Systems All systems: reviewed and no additional remarkable complaints except - Musculoskeletal Additional comments: leg pain. Critical Care Progress Note - Nutrition Nutrition: Nutrition Category Date Time Status Regular Diet [DIET] Diets 01/07/17 Dinner Active Assessment/Plan (1) Sickle cell crisis Assessment and plan: 46-year-old female, PMHx includes Anemia, Arthritis, CVA, Dementia, Depression, Hypertension, Sickle Cell Disease. Presents with pain typical of her sickle cell crisis. Patient was admitted to Tele but became severely tachycardic and hypoxic, not on Lovenox. Most likely PE. Transferred to ICU for further management. Neuro: alert and oriented x 3 Pulm: acute chest syndrome now resolved. Diuresing with Lasix to alleviate pulmonary edema. CV: hemodynamically stable Hem: sickle cell crisis c/b acute chest syndrome, folic acid, hydroxyurea, fluids. s/p blood exchange transfusion (01/09/17), with improvement in symptoms. Consult Hem/Onc - Dr. Shepherd. Rheum: patiens has rheumatoid arthritis, usually on methotrexate. Both methotrexate and hydroxyurea are myelosuppressants, patient should be started on an alternative RA medication. Will consult with Rheumatology, if available. Renal: no acute issues, urine output wnl, will monitor. Decreased fluids to NS@ 75. Endo: no acute issues GI: low sodium diet ID: empiric coverage with Zosyn. DVT proph - lovenox GI proph - protonix ayala for strict I/O's during acute illness Code status - full code Crtical Care Time spent 50 minutes Multi-disciplinary rounds were performed with house staff, nursing, speech therapy, respiratory therapy, pharmacy and nutrition with integrated input from the primary team/attending and other consulting services. The documented time is cumulative and includes review of patient data/exams/labs/chart review and examination of the patient on rounds and throughout the day; time is exclusive of any procedures or teaching time. Current Visit: No Status: Acute
[2017-01-10 09:36] LABS: NEUTROPHIL 82 % (50-75); NUCLEATED RED BLOOD CELL 5 % (0-0); REACTIVE LYMPHOCYTES 1 % (0-0); TOTAL CELLS COUNTED 100
[2017-01-10 09:38] LABS: SPHEROCYTES SLIGHT
[2017-01-10 09:40] LABS: LARGE PLATELETS PRESENT
[2017-01-10 09:44] LABS: GIANT PLATELETS PRESENT
[2017-01-10] MEDS ORDERED: Potassium Chloride 20 mEq ER Tab PO ONE (10:00)
--- NOTE | 2017-01-10 13:14 | RAD ---
HISTORY: Acute chest syndrome. Portable study 08:09. COMPARISON: 01/09/2017. FINDINGS: LUNGS: Bilateral lower lobe infiltrates unchanged compared to prior studies. PLEURA: No significant interval change compared to the prior examination(s). CARDIOVASCULAR: Cardiomegaly. No evidence of acute, significant cardiovascular disease. OSSEOUS STRUCTURES: No significant interval change compared to the prior examination(s). VISUALIZED UPPER ABDOMEN: Normal. OTHER FINDINGS: Satisfactory position IJ catheter. IMPRESSION: No significant interval change compared to the prior examination(s).
[2017-01-10] MEDS: Enoxaparin 40 mg Syringe SC SCH (13:42)
--- NOTE | 2017-01-10 14:26 | CP.PCM.PN ---
Subjective - Date & Time of Evaluation Date of Evaluation: 01/10/17 Time of Evaluation: 14:40 - Subjective Subjective: clinically same Objective - Vital Signs/Intake and Output Vital Signs (last 24 hours): Temp Pulse Resp BP Pulse Ox 98 F 119 H 14 87/62 L 89 L 01/10/17 12:00 01/10/17 13:22 01/10/17 13:22 01/10/17 13:22 01/10/17 13:00 Intake and Output: 01/10/17 01/10/17 06:59 18:59 Intake Total 1880 1380 Output Total 1425 1100 Balance 455 280 - Medications Medications: Current Medications Acetaminophen (Tylenol 325mg Tab) 650 mg PO Q6 PRN PRN Reason: Fever >100.4 F Last Admin: 01/09/17 21:02 Dose: 650 mg Albuterol/Ipratropium (Duoneb 3 Mg/0.5 Mg (3 Ml) Ud) 3 ml INH RQ6 [facility] Last Admin: 01/10/17 13:41 Dose: 3 ml Ascorbic Acid (Vitamin C 500 Mg Tab) 500 mg PO DAILY [facility] Last Admin: 01/10/17 09:29 Dose: 500 mg Diltiazem HCl (Cardizem) 5 mg IVP Q5M PRN PRN Reason: Heart rate Diphenhydramine HCl (Benadryl) 25 mg IVP Q4 PRN PRN Reason: Itching / Pruritus Last Admin: 01/09/17 06:52 Dose: 25 mg Donepezil HCl (Aricept) 10 mg PO HS [facility] Last Admin: 01/09/17 22:30 Dose: 10 mg Enoxaparin Sodium (Lovenox) 40 mg SC DAILY [facility] Last Admin: 01/10/17 13:42 Dose: 40 mg Fentanyl (Duragesic) 1 patch TD Q72H [facility] Last Admin: 01/09/17 17:55 Dose: 1 patch Folic Acid (Folic Acid) 1 mg PO DAILY [facility] Last Admin: 01/10/17 09:29 Dose: 1 mg Hydromorphone HCl (Dilaudid) 3 mg IVP Q4H PRN PRN Reason: Pain, severe (8-10) Last Admin: 01/10/17 05:31 Dose: 3 mg Hydroxyurea (Hydrea) 1,000 mg PO DAILY [facility] Last Admin: 01/10/17 09:31 Dose: 1,000 mg Piperacillin Sod/Tazobactam Sod (Zosyn 3.375 Gm Iv Premix) 3.375 gm in 50 mls @ 100 mls/hr IVPB Q6H [facility] Last Admin: 01/10/17 12:49 Dose: 100 mls/hr Sodium Chloride (Sodium Chloride 0.9%) 1,000 mls @ 75 mls/hr IV .[id number] [facility] Last Admin: 01/10/17 09:23 Dose: 75 mls/hr Metoprolol Tartrate (Lopressor) 5 mg IVP Q6H [facility] Last Admin: 01/10/17 13:36 Dose: Not Given Morphine Sulfate (Morphine Extended Release Tab) 60 mg PO Q12H [facility] Last Admin: 01/10/17 07:32 Dose: 60 mg Prednisone (Prednisone Tab) 5 mg PO DAILY [facility] Last Admin: 01/10/17 09:29 Dose: 5 mg Sennosides (Senokot Tab) 8.6 mg PO HS [facility] Last Admin: 01/09/17 23:30 Dose: 8.6 mg Thiamine HCl (Vitamin B1 Tab) 100 mg PO DAILY [facility] Last Admin: 01/10/17 09:29 Dose: 100 mg - Labs Labs: 01/10/17 06:36 01/10/17 06:36 PT 13.0 SECONDS (9.7-12.2) H 01/07/17 09:12 INR 1.1 01/07/17 09:12 APTT 49 SECONDS (21-34) H D 01/09/17 18:29 - Constitutional Appears: Well - Head Exam Head Exam: ATRAUMATIC, NORMAL INSPECTION, NORMOCEPHALIC - Eye Exam Eye Exam: EOMI, Normal appearance, PERRL Pupil Exam: NORMAL ACCOMODATION, PERRL - ENT Exam ENT Exam: Mucous Membranes Moist, Normal Exam - Neck Exam Neck Exam: Full ROM, Normal Inspection. absent: Lymphadenopathy - Respiratory Exam Respiratory Exam: Decreased Breath Sounds - Cardiovascular Exam Cardiovascular Exam: REGULAR RHYTHM, +S1, +S2 - GI/Abdominal Exam GI & Abdominal Exam: Soft, Diminished Bowel Sounds - Rectal Exam Rectal Exam: Deferred Assessment and Plan - Assessment and Plan (Free Text) Plan: f/u with buffer copper f/u with ID s/p red cell exchange iv pain meds iv antibiotics Oxygen folic acid
--- NOTE | 2017-01-10 21:30 | CP.PCM.PN ---
Subjective - Date & Time of Evaluation Date of Evaluation: 01/10/17 Time of Evaluation: 19:00 - Subjective Subjective: Feeling better s/p red cell exchange Objective - Vital Signs/Intake and Output Vital Signs (last 24 hours): Temp Pulse Resp BP Pulse Ox 97.9 F 91 H 11 L 104/59 L 100 01/10/17 16:21 01/10/17 16:15 01/10/17 16:15 01/10/17 16:15 01/10/17 16:15 Intake and Output: 01/10/17 01/11/17 18:59 06:59 Intake Total 1755 75 Output Total 1170 100 Balance 585 -25 - Medications Medications: Current Medications Acetaminophen (Tylenol 325mg Tab) 650 mg PO Q6 PRN PRN Reason: Fever >100.4 F Last Admin: 01/09/17 21:02 Dose: 650 mg Albuterol/Ipratropium (Duoneb 3 Mg/0.5 Mg (3 Ml) Ud) 3 ml INH RQ6 [facility] Last Admin: 01/10/17 20:40 Dose: 3 ml Ascorbic Acid (Vitamin C 500 Mg Tab) 500 mg PO DAILY [facility] Last Admin: 01/10/17 09:29 Dose: 500 mg Diltiazem HCl (Cardizem) 5 mg IVP Q5M PRN PRN Reason: Heart rate Diphenhydramine HCl (Benadryl) 25 mg IVP Q4 PRN PRN Reason: Itching / Pruritus Last Admin: 01/09/17 06:52 Dose: 25 mg Donepezil HCl (Aricept) 10 mg PO HS [facility] Last Admin: 01/09/17 22:30 Dose: 10 mg Enoxaparin Sodium (Lovenox) 40 mg SC DAILY [facility] Last Admin: 01/10/17 13:42 Dose: 40 mg Fentanyl (Duragesic) 1 patch TD Q72H [facility] Last Admin: 01/09/17 17:55 Dose: 1 patch Folic Acid (Folic Acid) 1 mg PO DAILY [facility] Last Admin: 01/10/17 09:29 Dose: 1 mg Hydromorphone HCl (Dilaudid) 3 mg IVP Q4H PRN PRN Reason: Pain, severe (8-10) Last Admin: 01/10/17 05:31 Dose: 3 mg Hydroxyurea (Hydrea) 1,000 mg PO DAILY [facility] Last Admin: 01/10/17 09:31 Dose: 1,000 mg Piperacillin Sod/Tazobactam Sod (Zosyn 3.375 Gm Iv Premix) 3.375 gm in 50 mls @ 100 mls/hr IVPB Q6H [facility] Last Admin: 01/10/17 17:23 Dose: 100 mls/hr Sodium Chloride (Sodium Chloride 0.9%) 1,000 mls @ 75 mls/hr IV .[id number] [facility] Last Admin: 01/10/17 09:23 Dose: 75 mls/hr Metoprolol Tartrate (Lopressor) 5 mg IVP Q6H [facility] Last Admin: 01/10/17 20:54 Dose: Not Given Morphine Sulfate (Morphine Extended Release Tab) 60 mg PO Q12H [facility] Last Admin: 01/10/17 17:22 Dose: 60 mg Prednisone (Prednisone Tab) 5 mg PO DAILY [facility] Last Admin: 01/10/17 09:29 Dose: 5 mg Sennosides (Senokot Tab) 8.6 mg PO HS [facility] Last Admin: 01/09/17 23:30 Dose: 8.6 mg Thiamine HCl (Vitamin B1 Tab) 100 mg PO DAILY [facility] Last Admin: 01/10/17 09:29 Dose: 100 mg - Labs Labs: 01/10/17 06:36 01/10/17 06:36 PT 13.0 SECONDS (9.7-12.2) H 01/07/17 09:12 INR 1.1 01/07/17 09:12 APTT 49 SECONDS (21-34) H D 01/09/17 18:29 - Head Exam Head Exam: ATRAUMATIC - Eye Exam Eye Exam: Normal appearance - ENT Exam ENT Exam: Mucous Membranes Dry - Respiratory Exam Respiratory Exam: Decreased Breath Sounds - Cardiovascular Exam Cardiovascular Exam: +S1, +S2 - GI/Abdominal Exam GI & Abdominal Exam: Normal Bowel Sounds - Extremities Exam Extremities Exam: Normal Inspection Assessment and Plan (1) Acute chest syndrome due to sickle cell crisis Assessment & Plan: improved s/p red cell exchange Status: Acute (2) Sickle cell pain crisis Assessment & Plan: IV fluids, folic acid, pain meds, 02 via NC Status: Acute (3) Leukocytosis Assessment & Plan: improved Status: Acute
[2017-01-10] MEDS ORDERED: Propofol 10 mg/ml Inj (20 ML) ONE (22:27)
[2017-01-10] MEDS: Sucralfate 1 gm/10 ml Oral Susp UD PO SCH (22:35)
[2017-01-10] MEDS: Calcium Carbonate 500 mg Chewable Antacid Tab PO SCH (23:30)
[2017-01-11] MEDS: Piperacill/Tazo 3.375gm in Dex 3.375 GM/50 ML BAG IVPB SCH ×4 (00:30→18:00)
[2017-01-11] MEDS: Albuterol-Ipratrop 3 mg / 0.5 (3 ml) UD INH SCH ×2 (01:08→08:12)
[2017-01-11] MEDS: Metoprolol 1 mg/ml Inj IVP SCH ×4 (01:30→19:45)
[2017-01-11] MEDS: Sucralfate 1 gm/10 ml Oral Susp UD PO SCH ×5 (04:30→22:02)
[2017-01-11] MEDS: Morphine 30 mg SR Tab PO SCH ×3 (06:16→19:46)
[2017-01-11 06:56] LABS: HEMATOCRIT 21.4 % (34.0-47.0); MEAN CELL VOLUME 79.7 fL (81.0-99.0); MEAN CORPUSCULAR HEMOGLOBIN 26.9 pg (27.0-31.0); MEAN CORPUSCULAR HGB CONC 33.8 g/dL (33.0-37.0); MEAN PLATELET VOLUME 8.7 fL (7.2-11.7); RED CELL DISTRIBUTION WIDTH 21.4 % (11.5-14.5); WHITE BLOOD COUNT 18.9 K/uL (4.8-10.8)
[2017-01-11 07:01] LABS: CHLORIDE 108 mmol/L (98-107); SODIUM 144 mmol/L (132-148)
[2017-01-11 07:04] LABS: BLOOD UREA NITROGEN 12 mg/dL (7-17); CARBON DIOXIDE 25 mmol/L (22-30); GFR AFRICAN-AMERICAN > 60
[2017-01-11 07:05] LABS: CALCIUM 7.5 mg/dl (8.6-10.4); GLUCOSE,RANDOM 121 mg/dL (65-105); MAGNESIUM 1.8 mg/dL (1.6-2.3); PHOSPHOROUS 2.5 mg/dL (2.5-4.5)
[2017-01-11] MEDS: Enoxaparin 40 mg Syringe SC SCH (09:59)
[2017-01-11] MEDS: Calcium Carbonate 500 mg Chewable Antacid Tab PO SCH ×2 (09:59→19:13)
[2017-01-11] MEDS: DiphenhydrAMINE 50 mg/ml Inj IVP PRN (10:00)
[2017-01-11] MEDS: Potassium Chloride 20 mEq ER Tab PO SCH ×2 (10:03→19:13)
--- NOTE | 2017-01-11 10:46 | CP.PCM.PN ---
Subjective - Date & Time of Evaluation Date of Evaluation: 01/11/17 Time of Evaluation: 10:00 - Subjective Subjective: patient seen and examined. Sitting comfortably in no acute distress Status post exchange transfusion with significant improvement on antibiotics Afebrile Objective - Vital Signs/Intake and Output Vital Signs (last 24 hours): Temp Pulse Resp BP Pulse Ox 97.2 F L 64 11 L 113/58 L 100 01/11/17 09:00 01/11/17 08:00 01/11/17 08:00 01/11/17 07:36 01/11/17 08:00 Intake and Output: 01/11/17 01/11/17 06:59 18:59 Intake Total 975 600 Output Total 1160 450 Balance -185 150 - Medications Medications: Current Medications Acetaminophen (Tylenol 325mg Tab) 650 mg PO Q6 PRN PRN Reason: Fever >100.4 F Last Admin: 01/09/17 21:02 Dose: 650 mg Albuterol/Ipratropium (Duoneb 3 Mg/0.5 Mg (3 Ml) Ud) 3 ml INH RQ6 PRN PRN Reason: Wheezing Ascorbic Acid (Vitamin C 500 Mg Tab) 500 mg PO DAILY [facility] Last Admin: 01/11/17 09:58 Dose: 500 mg Calcium Carbonate (Tums) 500 mg PO BID [facility] Last Admin: 01/11/17 09:59 Dose: 500 mg Diltiazem HCl (Cardizem) 5 mg IVP Q5M PRN PRN Reason: Heart rate Diphenhydramine HCl (Benadryl) 25 mg IVP Q4 PRN PRN Reason: Itching / Pruritus Last Admin: 01/11/17 10:00 Dose: 25 mg Donepezil HCl (Aricept) 10 mg PO HS [facility] Last Admin: 01/10/17 22:35 Dose: 10 mg Enoxaparin Sodium (Lovenox) 40 mg SC DAILY [facility] Last Admin: 01/11/17 09:59 Dose: 40 mg Fentanyl (Duragesic) 1 patch TD Q72H [facility] Last Admin: 01/09/17 17:55 Dose: 1 patch Folic Acid (Folic Acid) 1 mg PO DAILY [facility] Last Admin: 01/11/17 09:58 Dose: 1 mg Hydromorphone HCl (Dilaudid) 3 mg IVP Q4H PRN PRN Reason: Pain, severe (8-10) Last Admin: 01/11/17 10:00 Dose: 3 mg Hydroxyurea (Hydrea) 1,000 mg PO DAILY [facility] Last Admin: 01/11/17 09:58 Dose: 1,000 mg Piperacillin Sod/Tazobactam Sod (Zosyn 3.375 Gm Iv Premix) 3.375 gm in 50 mls @ 100 mls/hr IVPB Q6H [facility] Last Admin: 01/11/17 06:15 Dose: 100 mls/hr Metoprolol Tartrate (Lopressor) 5 mg IVP Q6H [facility] Last Admin: 01/11/17 07:23 Dose: Not Given Morphine Sulfate (Morphine Extended Release Tab) 60 mg PO Q12H [facility] Last Admin: 01/11/17 06:16 Dose: 60 mg Pantoprazole Sodium (Protonix Inj) 40 mg IVP DAILY [facility] Last Admin: 01/11/17 09:58 Dose: 40 mg Potassium Chloride (K-Dur 20 Meq Er Tab) 40 meq PO BID [facility] Stop: 01/11/17 18:01 Last Admin: 01/11/17 10:03 Dose: 40 meq Prednisone (Prednisone Tab) 5 mg PO DAILY [facility] Last Admin: 01/10/17 09:29 Dose: 5 mg Sennosides (Senokot Tab) 8.6 mg PO HS [facility] Last Admin: 01/10/17 22:34 Dose: 8.6 mg Sucralfate (Carafate Oral Susp) 1 gm PO Q6H [facility] Stop: 01/12/17 16:16 Last Admin: 01/11/17 09:59 Dose: 1 gm Thiamine HCl (Vitamin B1 Tab) 100 mg PO DAILY [facility] Last Admin: 01/11/17 09:58 Dose: 100 mg - Labs Labs: 01/11/17 06:46 01/11/17 06:46 PT 13.0 SECONDS (9.7-12.2) H 01/07/17 09:12 INR 1.1 01/07/17 09:12 APTT 49 SECONDS (21-34) H D 01/09/17 18:29 - Head Exam Head Exam: ATRAUMATIC, NORMOCEPHALIC - ENT Exam ENT Exam: Mucous Membranes Moist - Neck Exam Neck Exam: Normal Inspection - Respiratory Exam Respiratory Exam: Rales - Cardiovascular Exam Cardiovascular Exam: REGULAR RHYTHM - GI/Abdominal Exam GI & Abdominal Exam: Soft, Normal Bowel Sounds Assessment and Plan (1) Acute chest syndrome due to sickle cell crisis Assessment & Plan: continue IV antibiotics Continue nebulizer treatment and pain medication Transfuse if necessary Potassium replacement Status: Acute (2) Pneumonia Status: Acute (3) Sickle cell crisis Status: Acute
--- NOTE | 2017-01-11 12:53 | CP.PCM.PN ---
Subjective - Date & Time of Evaluation Date of Evaluation: 01/11/17 Time of Evaluation: 13:40 - Subjective Subjective: clinically same Objective - Vital Signs/Intake and Output Vital Signs (last 24 hours): Temp Pulse Resp BP Pulse Ox 97.2 F L 64 11 L 113/58 L 100 01/11/17 09:00 01/11/17 08:00 01/11/17 08:00 01/11/17 07:36 01/11/17 08:00 Intake and Output: 01/11/17 01/11/17 06:59 18:59 Intake Total 975 600 Output Total 1160 450 Balance -185 150 - Medications Medications: Current Medications Acetaminophen (Tylenol 325mg Tab) 650 mg PO Q6 PRN PRN Reason: Fever >100.4 F Last Admin: 01/09/17 21:02 Dose: 650 mg Albuterol/Ipratropium (Duoneb 3 Mg/0.5 Mg (3 Ml) Ud) 3 ml INH RQ6 PRN PRN Reason: Wheezing Ascorbic Acid (Vitamin C 500 Mg Tab) 500 mg PO DAILY [facility] Last Admin: 01/11/17 09:58 Dose: 500 mg Calcium Carbonate (Tums) 500 mg PO BID [facility] Last Admin: 01/11/17 09:59 Dose: 500 mg Diltiazem HCl (Cardizem) 5 mg IVP Q5M PRN PRN Reason: Heart rate Diphenhydramine HCl (Benadryl) 25 mg IVP Q4 PRN PRN Reason: Itching / Pruritus Last Admin: 01/11/17 10:00 Dose: 25 mg Donepezil HCl (Aricept) 10 mg PO HS [facility] Last Admin: 01/10/17 22:35 Dose: 10 mg Enoxaparin Sodium (Lovenox) 40 mg SC DAILY [facility] Last Admin: 01/11/17 09:59 Dose: 40 mg Fentanyl (Duragesic) 1 patch TD Q72H [facility] Last Admin: 01/09/17 17:55 Dose: 1 patch Folic Acid (Folic Acid) 1 mg PO DAILY [facility] Last Admin: 01/11/17 09:58 Dose: 1 mg Hydromorphone HCl (Dilaudid) 3 mg IVP Q4H PRN PRN Reason: Pain, severe (8-10) Last Admin: 01/11/17 10:00 Dose: 3 mg Hydroxyurea (Hydrea) 1,000 mg PO DAILY [facility] Last Admin: 01/11/17 09:58 Dose: 1,000 mg Piperacillin Sod/Tazobactam Sod (Zosyn 3.375 Gm Iv Premix) 3.375 gm in 50 mls @ 100 mls/hr IVPB Q6H [facility] Last Admin: 01/11/17 06:15 Dose: 100 mls/hr Metoprolol Tartrate (Lopressor) 5 mg IVP Q6H [facility] Last Admin: 01/11/17 07:23 Dose: Not Given Morphine Sulfate (Morphine Extended Release Tab) 60 mg PO Q12H [facility] Last Admin: 01/11/17 06:16 Dose: 60 mg Pantoprazole Sodium (Protonix Inj) 40 mg IVP DAILY [facility] Last Admin: 01/11/17 09:58 Dose: 40 mg Potassium Chloride (K-Dur 20 Meq Er Tab) 40 meq PO BID [facility] Stop: 01/11/17 18:01 Last Admin: 01/11/17 10:03 Dose: 40 meq Prednisone (Prednisone Tab) 5 mg PO DAILY [facility] Last Admin: 01/10/17 09:29 Dose: 5 mg Sennosides (Senokot Tab) 8.6 mg PO HS [facility] Last Admin: 01/10/17 22:34 Dose: 8.6 mg Sucralfate (Carafate Oral Susp) 1 gm PO Q6H [facility] Stop: 01/12/17 16:16 Last Admin: 01/11/17 09:59 Dose: 1 gm Thiamine HCl (Vitamin B1 Tab) 100 mg PO DAILY [facility] Last Admin: 01/11/17 09:58 Dose: 100 mg - Labs Labs: 01/11/17 06:46 01/11/17 06:46 PT 13.0 SECONDS (9.7-12.2) H 01/07/17 09:12 INR 1.1 01/07/17 09:12 APTT 49 SECONDS (21-34) H D 01/09/17 18:29 - Constitutional Appears: Well - Head Exam Head Exam: ATRAUMATIC, NORMAL INSPECTION, NORMOCEPHALIC - Eye Exam Eye Exam: EOMI, Normal appearance, PERRL Pupil Exam: NORMAL ACCOMODATION, PERRL - ENT Exam ENT Exam: Mucous Membranes Moist, Normal Exam - Neck Exam Neck Exam: Full ROM, Normal Inspection. absent: Lymphadenopathy - Respiratory Exam Respiratory Exam: Decreased Breath Sounds - Cardiovascular Exam Cardiovascular Exam: REGULAR RHYTHM, +S1, +S2 - GI/Abdominal Exam GI & Abdominal Exam: Soft, Diminished Bowel Sounds - Rectal Exam Rectal Exam: Deferred Assessment and Plan - Assessment and Plan (Free Text) Plan: f/u with vegetable farm worker f/u with ID f/u with lane attendant s/p red cell exchange monitor H/H iv pain meds iv antibiotics Oxygen folic acid
--- NOTE | 2017-01-11 12:57 | CT ---
PROCEDURE: CT Chest without contrast HISTORY: r/o pneumonia, recent acute chest syndrome COMPARISON: May 09, 2016. Lung screening study. January 07-January 10, 2017. Serial chest radiographs TECHNIQUE: Contiguous axial images were obtained through the chest without intravenous contrast enhancement. Sagittal and coronal reconstructions were performed. Radiation dose (DLP): 422.67 mGy-cm. This CT exam was performed using one or more of the following dose reduction techniques: Automated exposure control, adjustment of the mA and/or kV according to patient size, and/or use of iterative reconstruction technique. FINDINGS: LUNGS: Bilateral alveolar infiltrates. Although primarily affecting the lower lobes, there is subsegmental consolidative change in the right upper lobe, left upper lobe. MEDIASTINUM: Unremarkable thoracic aorta. No aneurysm. Cardiomegaly. No evidence of acute, significant cardiovascular disease. Dilated main pulmonary artery 3.3 cm. Right IJ catheter tip in the IVC below the cavoatrial junction. No lymphadenopathy. Patulous common dilated esophagus primarily upper thoracic esophagus. Small hiatus hernia, also identified. PLEURA: No pleural fluid. No pneumothorax. BONES: Findings consistent with osteonecrosis identified in the shoulders. UPPER ABDOMEN: Grossly unremarkable. OTHER FINDINGS: None. IMPRESSION: Bilateral primarily lower lobe infiltrates. Infectious/inflammatory etiologies are most likely.
--- NOTE | 2017-01-11 13:16 | CP.CCUPN ---
CCU Subjective - Physician Review Events Since Last Encounter (Free Text): 01/11/17 13:13 Patient clinically stable, and much improved from initial presentation. Still has ongoing lower extremity pain but not as severe. CCU Objective - Vital Signs / Intake & Output Intake and Output (Last 8hrs): Intake & Output 01/10/17 01/11/17 01/11/17 22:59 06:59 14:59 Intake Total 575 675 600 Output Total 770 800 450 Balance -195 -125 150 Intake: Intake, IV Amount 575 675 225 LEFT ARM 75 Left Upper arm 575 675 150 Oral 375 Output: Urine 770 800 450 2-way Urethral 770 800 450 Other: # Bowel Movements 0 - Physical Exam Head: Positive for: Atraumatic, Normocephalic Pupils: Positive for: PERRL Extroacular Muscles: Positive for: EOMI Conjunctiva: Positive for: Normal Mouth: Positive for: Moist Mucous Membranes Respiratory/Chest: Positive for: Good Air Exchange, Decreased Breath Sounds Cardiovascular: Positive for: Tachycardic Abdomen: Positive for: Normal Bowel Sounds. Negative for: Tenderness, Distention Upper Extremity: Positive for: Normal Inspection Lower Extremity: Positive for: Other (contracted) Neurological: Positive for: GCS=15 Psychiatric: Positive for: Alert, Oriented x 3 - Medications Active Medications: Active Medications Generic Name Dose Route Start Last Admin Trade Name Freq PRN Reason Stop Dose Admin Acetaminophen 650 mg 01/09/17 20:44 01/09/17 21:02 Tylenol 325mg Tab PO 650 mg Q6 PRN Administration Fever >100.4 F Albuterol/Ipratropium 3 ml 01/11/17 09:33 Duoneb 3 Mg/0.5 Mg (3 Ml) Ud INH RQ6 PRN Wheezing Ascorbic Acid 500 mg 01/08/17 10:00 01/11/17 09:58 Vitamin C 500 Mg Tab PO 500 mg DAILY JESSICA Administration Calcium Carbonate 500 mg 01/10/17 22:15 01/11/17 09:59 Tums PO 500 mg BID JESSICA Administration Diltiazem HCl 5 mg 01/09/17 10:35 Cardizem IVP Q5M PRN Heart rate Diphenhydramine HCl 25 mg 01/07/17 12:48 01/11/17 10:00 Benadryl IVP 25 mg Q4 PRN Administration Itching / Pruritus Donepezil HCl 10 mg 01/07/17 22:00 01/10/17 22:35 Aricept PO 10 mg HS JESSICA Administration Enoxaparin Sodium 40 mg 01/10/17 13:00 01/11/17 09:59 Lovenox SC 40 mg DAILY JESSICA Administration Fentanyl 1 patch 01/09/17 16:30 01/09/17 17:55 Duragesic TD 1 patch Q72H JESSICA Administration Folic Acid 1 mg 01/08/17 10:00 01/11/17 09:58 Folic Acid PO 1 mg DAILY JESSICA Administration Hydromorphone HCl 3 mg 01/07/17 15:47 01/11/17 10:00 Dilaudid IVP 3 mg Q4H PRN Administration Pain, severe (8-10) Hydroxyurea 1,000 mg 01/09/17 11:45 01/11/17 09:58 Hydrea PO 1,000 mg DAILY JESSICA Administration Piperacillin Sod/Tazobactam Sod 3.375 gm in 50 mls @ 100 mls/hr 01/09/17 12: 00 01/11/17 06:15 Zosyn 3.375 Gm Iv Premix IVPB 100 mls/hr Q6H JESSICA Administration Metoprolol Tartrate 5 mg 01/09/17 19:15 01/11/17 07:23 Lopressor IVP Not Given Q6H [facility] Morphine Sulfate 60 mg 01/07/17 18:00 01/11/17 06:16 Morphine Extended Release Tab PO 60 mg Q12H JESSICA Administration Pantoprazole Sodium 40 mg 01/10/17 22:05 01/11/17 09:58 Protonix Inj IVP 40 mg DAILY JESSICA Administration Potassium Chloride 40 meq 01/11/17 10:00 01/11/17 10:03 K-Dur 20 Meq Er Tab PO 01/11/17 18:01 40 meq BID JESSICA Administration Prednisone 5 mg 01/08/17 10:00 01/10/17 09:29 Prednisone Tab PO 5 mg DAILY JESSICA Administration Sennosides 8.6 mg 01/07/17 22:00 01/10/17 22:34 Senokot Tab PO 8.6 mg HS JESSICA Administration Sucralfate 1 gm 01/10/17 22:15 01/11/17 09:59 Carafate Oral Susp PO 01/12/17 16:16 1 gm Q6H JESSICA Administration Thiamine HCl 100 mg 01/09/17 10:00 01/11/17 09:58 Vitamin B1 Tab PO 100 mg DAILY JESSICA Administration - Patient Studies Lab Studies: Microbiology Studies 01/09/17 00:30 Blood Culture - Preliminary Blood-Thru Central Line NO GROWTH AFTER 48 HOURS 01/09/17 00:00 Blood Culture - Preliminary Blood-Thru Central Line NO GROWTH AFTER 48 HOURS 01/09/17 17:15 MRSA Culture (Admit) - Final Naris MRSA NOT DETECTED 01/09/17 09:30 Urine Culture - Final Urine,Catheterized No Growth (<1,000 CFU/ML) Lab Studies 01/11/17 01/11/17 Range/Units 06:46 06:46 WBC 18.9 H (4.8-10.8) K/uL RBC 2.68 L (3.80-5.20) Mil/uL Hgb 7.2 L (11.0-16.0) g/dL Hct 21.4 L (34.0-47.0) % MCV 79.7 L D (81.0-99.0) fL MCH 26.9 L (27.0-31.0) pg MCHC 33.8 (33.0-37.0) g/dL RDW 21.4 H (11.5-14.5) % Plt Count 161 (130-400) K/uL MPV 8.7 (7.2-11.7) fL Differential Comment Sodium 144 (132-148) mmol/L Potassium 3.0 L (3.6-5.2) mmol/L Chloride 108 H (98-107) mmol/L Carbon Dioxide 25 (22-30) mmol/L Anion Gap 14 (10-20) BUN 12 (7-17) mg/dL Creatinine 0.6 L (0.7-1.2) MG/DL Est GFR ( Amer) > 60 Est GFR (Non-Af Amer) > 60 Random Glucose 121 H (65-105) mg/dL Calcium 7.5 L (8.6-10.4) mg/dl Phosphorus 2.5 (2.5-4.5) mg/dL Magnesium 1.8 (1.6-2.3) mg/dL Laboratory Results - last 24 hr 01/11/17 01/11/17 06:46 06:46 WBC 18.9 H RBC 2.68 L Hgb 7.2 L Hct 21.4 L MCV 79.7 L D MCH 26.9 L MCHC 33.8 RDW 21.4 H Plt Count 161 MPV 8.7 Differential Comment Sodium 144 Potassium 3.0 L Chloride 108 H Carbon Dioxide 25 Anion Gap 14 BUN 12 Creatinine 0.6 L Est GFR ( Amer) > 60 Est GFR (Non-Af Amer) > 60 Random Glucose 121 H Calcium 7.5 L Phosphorus 2.5 Magnesium 1.8 Fingerstick Blood Sugar Results: 143 Review of Systems - Review of Systems All systems: reviewed and no additional remarkable complaints except - Musculoskeletal Additional comments: Leg pain Critical Care Progress Note - Nutrition Nutrition: Nutrition Category Date Time Status Regular Diet [DIET] Diets 01/07/17 Dinner Active Assessment/Plan (1) Sickle cell crisis Assessment and plan: 46-year-old female, PMHx includes Anemia, Arthritis, CVA, Dementia, Depression, Hypertension, Sickle Cell Disease. Presents with pain typical of her sickle cell crisis. Patient was admitted to Tele but became severely tachycardic and hypoxic, not on Lovenox. Most likely PE. Transferred to ICU for further management. Neuro: alert and oriented x 3 Pulm: acute chest syndrome now resolved. Obtaining CT chest to better assess fluid overload versus pneumonia. CV: hemodynamically stable Hem: sickle cell crisis c/b acute chest syndrome, folic acid, hydroxyurea, fluids. s/p blood exchange transfusion (01/09/17), with improvement in symptoms. Consult Hem/Onc - Dr. Shepherd. Rheum: patiens has rheumatoid arthritis, usually on methotrexate. Both methotrexate and hydroxyurea are myelosuppressants, patient should be started on an alternative RA medication. Will consult with Rheumatology, if available. Renal: no acute issues, urine output wnl, will monitor. Stopping fluids, good by mouth intake. Endo: no acute issues GI: low sodium diet ID: empiric coverage with Zosyn, continue full 5 day course. Possible underlying pneumonia. DVT proph - lovenox GI proph - protonix ayala for strict I/O's during acute illness Code status - full code Right IJ Shiley (01/09/17) - will have PICC line placed tomorrow and remove Shiley. Crtical Care Time spent 35 minutes Multi-disciplinary rounds were performed with house staff, nursing, speech therapy, respiratory therapy, pharmacy and nutrition with integrated input from the primary team/attending and other consulting services. The documented time is cumulative and includes review of patient data/exams/labs/chart review and examination of the patient on rounds and throughout the day; time is exclusive of any procedures or teaching time. Current Visit: No Status: Acute
--- NOTE | 2017-01-11 13:18 | CP.PCM.PN ---
Subjective - Date & Time of Evaluation Date of Evaluation: 01/11/17 Time of Evaluation: 13:17 - Subjective Subjective: Clinically resolved respiratory distress No CP Drop in H/H noted 9.0 > 7.2 Mild hypokalemia: Normal creat Normal BP and tachycardia improved Objective - Vital Signs/Intake and Output Vital Signs (last 24 hours): Temp Pulse Resp BP Pulse Ox 97.2 F L 64 11 L 113/58 L 100 01/11/17 09:00 01/11/17 08:00 01/11/17 08:00 01/11/17 07:36 01/11/17 08:00 Intake and Output: 01/11/17 01/11/17 06:59 18:59 Intake Total 975 600 Output Total 1160 450 Balance -185 150 - Medications Medications: Current Medications Acetaminophen (Tylenol 325mg Tab) 650 mg PO Q6 PRN PRN Reason: Fever >100.4 F Last Admin: 01/09/17 21:02 Dose: 650 mg Albuterol/Ipratropium (Duoneb 3 Mg/0.5 Mg (3 Ml) Ud) 3 ml INH RQ6 PRN PRN Reason: Wheezing Ascorbic Acid (Vitamin C 500 Mg Tab) 500 mg PO DAILY [facility] Last Admin: 01/11/17 09:58 Dose: 500 mg Calcium Carbonate (Tums) 500 mg PO BID [facility] Last Admin: 01/11/17 09:59 Dose: 500 mg Diltiazem HCl (Cardizem) 5 mg IVP Q5M PRN PRN Reason: Heart rate Diphenhydramine HCl (Benadryl) 25 mg IVP Q4 PRN PRN Reason: Itching / Pruritus Last Admin: 01/11/17 10:00 Dose: 25 mg Donepezil HCl (Aricept) 10 mg PO HS [facility] Last Admin: 01/10/17 22:35 Dose: 10 mg Enoxaparin Sodium (Lovenox) 40 mg SC DAILY [facility] Last Admin: 01/11/17 09:59 Dose: 40 mg Fentanyl (Duragesic) 1 patch TD Q72H [facility] Last Admin: 01/09/17 17:55 Dose: 1 patch Folic Acid (Folic Acid) 1 mg PO DAILY [facility] Last Admin: 01/11/17 09:58 Dose: 1 mg Hydromorphone HCl (Dilaudid) 3 mg IVP Q4H PRN PRN Reason: Pain, severe (8-10) Last Admin: 01/11/17 10:00 Dose: 3 mg Hydroxyurea (Hydrea) 1,000 mg PO DAILY [facility] Last Admin: 01/11/17 09:58 Dose: 1,000 mg Piperacillin Sod/Tazobactam Sod (Zosyn 3.375 Gm Iv Premix) 3.375 gm in 50 mls @ 100 mls/hr IVPB Q6H [facility] Last Admin: 01/11/17 06:15 Dose: 100 mls/hr Metoprolol Tartrate (Lopressor) 5 mg IVP Q6H [facility] Last Admin: 01/11/17 07:23 Dose: Not Given Morphine Sulfate (Morphine Extended Release Tab) 60 mg PO Q12H [facility] Last Admin: 01/11/17 06:16 Dose: 60 mg Pantoprazole Sodium (Protonix Inj) 40 mg IVP DAILY [facility] Last Admin: 01/11/17 09:58 Dose: 40 mg Potassium Chloride (K-Dur 20 Meq Er Tab) 40 meq PO BID [facility] Stop: 01/11/17 18:01 Last Admin: 01/11/17 10:03 Dose: 40 meq Prednisone (Prednisone Tab) 5 mg PO DAILY [facility] Last Admin: 01/10/17 09:29 Dose: 5 mg Sennosides (Senokot Tab) 8.6 mg PO HS [facility] Last Admin: 01/10/17 22:34 Dose: 8.6 mg Sucralfate (Carafate Oral Susp) 1 gm PO Q6H [facility] Stop: 01/12/17 16:16 Last Admin: 01/11/17 09:59 Dose: 1 gm Thiamine HCl (Vitamin B1 Tab) 100 mg PO DAILY [facility] Last Admin: 01/11/17 09:58 Dose: 100 mg - Labs Labs: 01/11/17 06:46 01/11/17 06:46 PT 13.0 SECONDS (9.7-12.2) H 01/07/17 09:12 INR 1.1 01/07/17 09:12 APTT 49 SECONDS (21-34) H D 01/09/17 18:29 - Constitutional Appears: Chronically Ill - Eye Exam Eye Exam: EOMI, Normal appearance - ENT Exam ENT Exam: Mucous Membranes Moist - Neck Exam Neck Exam: Full ROM. absent: Tenderness - Respiratory Exam Respiratory Exam: Rhonchi, NORMAL BREATHING PATTERN. absent: Wheezes - Cardiovascular Exam Cardiovascular Exam: Tachycardia, REGULAR RHYTHM, +S1, +S2, Murmur. absent: +S4 - Extremities Exam Extremities Exam: absent: Normal Inspection (contracted) - Neurological Exam Neurological Exam: Alert, Awake, Oriented x3 - Psychiatric Exam Psychiatric exam: Normal Affect - Skin Skin Exam: Normal Color, Warm Assessment and Plan - Assessment and Plan (Free Text) Assessment: Anemia, normal creat ECHO directly viewed by me: hyperdynamic LV function, Normal RV size, mod-sev pulm HTN, Mod TR, mild MR XRAY: B/l haziness and vascular chages V/Q low prob for PE * Hx of sickel cell disese * Hx of mixed connective tissue disorder * Hx of Rheum arthritis IMPRESSION: 1. sinus tachycardia is secondary to underlying sickle cell crisis and acute chest syndrome * now improved: Suggest metoprolol 25 daily PO 2. No suspicion for PE by V/Q or echo; CXR: B/l infiltrates and effusion 3. acute chest syndrome/URI * s/p exchange transfusion, on broad spectrum ABX; Hydration, pain management and supportive care * Again noted drop in H/H No acute cardiac issues or hemodynamic instability: Cont with supportive care
[2017-01-11] MEDS ORDERED: Potassium Chloride 10 mEq ER Tab PO STA (13:19)
[2017-01-11] MEDS ORDERED: Potassium Chloride 20 mEq ER Tab PO ONE (13:20)
--- NOTE | 2017-01-11 16:57 | CP.PCM.PN ---
Subjective - Date & Time of Evaluation Date of Evaluation: 01/11/17 Time of Evaluation: 08:00 - Subjective Subjective: seen in ICU denies chest pain, cough or SOB body aches are less Objective - Vital Signs/Intake and Output Vital Signs (last 24 hours): Temp Pulse Resp BP Pulse Ox 97.2 F L 64 11 L 113/58 L 100 01/11/17 09:00 01/11/17 08:00 01/11/17 08:00 01/11/17 07:36 01/11/17 08:00 Intake and Output: 01/11/17 01/11/17 06:59 18:59 Intake Total 975 1200 Output Total 1160 1025 Balance -185 175 - Medications Medications: Current Medications Acetaminophen (Tylenol 325mg Tab) 650 mg PO Q6 PRN PRN Reason: Fever >100.4 F Last Admin: 01/09/17 21:02 Dose: 650 mg Albuterol/Ipratropium (Duoneb 3 Mg/0.5 Mg (3 Ml) Ud) 3 ml INH RQ6 PRN PRN Reason: Wheezing Ascorbic Acid (Vitamin C 500 Mg Tab) 500 mg PO DAILY [facility] Last Admin: 01/11/17 09:58 Dose: 500 mg Calcium Carbonate (Tums) 500 mg PO BID [facility] Last Admin: 01/11/17 09:59 Dose: 500 mg Diltiazem HCl (Cardizem) 5 mg IVP Q5M PRN PRN Reason: Heart rate Diphenhydramine HCl (Benadryl) 25 mg IVP Q4 PRN PRN Reason: Itching / Pruritus Last Admin: 01/11/17 10:00 Dose: 25 mg Donepezil HCl (Aricept) 10 mg PO HS [facility] Last Admin: 01/10/17 22:35 Dose: 10 mg Enoxaparin Sodium (Lovenox) 40 mg SC DAILY [facility] Last Admin: 01/11/17 09:59 Dose: 40 mg Fentanyl (Duragesic) 1 patch TD Q72H [facility] Last Admin: 01/09/17 17:55 Dose: 1 patch Folic Acid (Folic Acid) 1 mg PO DAILY [facility] Last Admin: 01/11/17 09:58 Dose: 1 mg Hydromorphone HCl (Dilaudid) 3 mg IVP Q4H PRN PRN Reason: Pain, severe (8-10) Last Admin: 01/11/17 10:00 Dose: 3 mg Hydroxyurea (Hydrea) 1,000 mg PO DAILY [facility] Last Admin: 01/11/17 09:58 Dose: 1,000 mg Piperacillin Sod/Tazobactam Sod (Zosyn 3.375 Gm Iv Premix) 3.375 gm in 50 mls @ 100 mls/hr IVPB Q6H [facility] Last Admin: 01/11/17 06:15 Dose: 100 mls/hr Azithromycin 500 mg/ Sodium (Chloride) 250 mls @ 250 mls/hr IVPB DAILY [facility] Metoprolol Tartrate (Lopressor) 5 mg IVP Q6H [facility] Last Admin: 01/11/17 15:06 Dose: Not Given Morphine Sulfate (Morphine Extended Release Tab) 60 mg PO Q12H [facility] Last Admin: 01/11/17 06:16 Dose: 60 mg Pantoprazole Sodium (Protonix Inj) 40 mg IVP DAILY [facility] Last Admin: 01/11/17 09:58 Dose: 40 mg Potassium Chloride (K-Dur 20 Meq Er Tab) 40 meq PO BID [facility] Stop: 01/11/17 18:01 Last Admin: 01/11/17 10:03 Dose: 40 meq Prednisone (Prednisone Tab) 5 mg PO DAILY [facility] Last Admin: 01/10/17 09:29 Dose: 5 mg Sennosides (Senokot Tab) 8.6 mg PO HS [facility] Last Admin: 01/10/17 22:34 Dose: 8.6 mg Sucralfate (Carafate Oral Susp) 1 gm PO Q6H [facility] Stop: 01/12/17 16:16 Last Admin: 01/11/17 09:59 Dose: 1 gm Thiamine HCl (Vitamin B1 Tab) 100 mg PO DAILY [facility] Last Admin: 01/11/17 09:58 Dose: 100 mg - Labs Labs: 01/11/17 06:46 01/11/17 06:46 PT 13.0 SECONDS (9.7-12.2) H 01/07/17 09:12 INR 1.1 01/07/17 09:12 APTT 49 SECONDS (21-34) H D 01/09/17 18:29 - Constitutional Appears: Non-toxic, Chronically Ill - Head Exam Head Exam: NORMOCEPHALIC - Eye Exam Eye Exam: PERRL. absent: Scleral icterus - ENT Exam ENT Exam: Mucous Membranes Dry - Neck Exam Neck Exam: absent: Lymphadenopathy - Respiratory Exam Respiratory Exam: Decreased Breath Sounds, Rhonchi - Cardiovascular Exam Cardiovascular Exam: REGULAR RHYTHM, +S1, +S2 - GI/Abdominal Exam GI & Abdominal Exam: Distended, Soft. absent: Tenderness - Rectal Exam Rectal Exam: Deferred - Exam Exam: NORMAL INSPECTION - Extremities Exam Extremities Exam: absent: Calf Tenderness, Pedal Edema - Back Exam Back Exam: absent: CVA tenderness (L) - Neurological Exam Neurological Exam: Alert, Awake, Oriented x3 - Psychiatric Exam Psychiatric exam: Normal Mood - Skin Skin Exam: Dry Assessment and Plan (1) Acute chest syndrome due to sickle cell crisis Status: Acute (2) Sickle cell disease Status: Acute (3) Hip pain Status: Acute (4) Leukocytosis Status: Acute (5) Pneumonia Status: Acute (6) Sickle cell crisis Status: Acute - Assessment and Plan (Free Text) Assessment: cultures reviewed iv rx in progress
[2017-01-11] MEDS: Albuterol-Ipratrop 3 mg / 0.5 (3 ml) UD INH PRN (17:32)
[2017-01-11] MEDS ORDERED: Morphine 30 mg SR Tab PO SCH ×2 (18:00→19:30)
--- NOTE | 2017-01-11 19:05 | CP.PCM.PN ---
Subjective - Date & Time of Evaluation Date of Evaluation: 01/11/17 Time of Evaluation: 16:15 - Subjective Subjective: Feeling better, no chest pain Breathing better Objective - Vital Signs/Intake and Output Vital Signs (last 24 hours): Temp Pulse Resp BP Pulse Ox 97.2 F L 64 11 L 113/58 L 100 01/11/17 09:00 01/11/17 08:00 01/11/17 08:00 01/11/17 07:36 01/11/17 08:00 Intake and Output: 01/11/17 01/12/17 18:59 06:59 Intake Total 1200 Output Total 1025 Balance 175 - Medications Medications: Current Medications Acetaminophen (Tylenol 325mg Tab) 650 mg PO Q6 PRN PRN Reason: Fever >100.4 F Last Admin: 01/09/17 21:02 Dose: 650 mg Albuterol/Ipratropium (Duoneb 3 Mg/0.5 Mg (3 Ml) Ud) 3 ml INH RQ6 PRN PRN Reason: Wheezing Last Admin: 01/11/17 17:32 Dose: 3 ml Ascorbic Acid (Vitamin C 500 Mg Tab) 500 mg PO DAILY [facility] Last Admin: 01/11/17 09:58 Dose: 500 mg Calcium Carbonate (Tums) 500 mg PO BID [facility] Last Admin: 01/11/17 09:59 Dose: 500 mg Diltiazem HCl (Cardizem) 5 mg IVP Q5M PRN PRN Reason: Heart rate Diphenhydramine HCl (Benadryl) 25 mg IVP Q4 PRN PRN Reason: Itching / Pruritus Last Admin: 01/11/17 10:00 Dose: 25 mg Donepezil HCl (Aricept) 10 mg PO [facility] Last Admin: 01/10/17 22:35 Dose: 10 mg Enoxaparin Sodium (Lovenox) 40 mg SC DAILY [facility] Last Admin: 01/11/17 09:59 Dose: 40 mg Fentanyl (Duragesic) 1 patch TD Q72H [facility] Last Admin: 01/09/17 17:55 Dose: 1 patch Folic Acid (Folic Acid) 1 mg PO DAILY [facility] Last Admin: 01/11/17 09:58 Dose: 1 mg Hydromorphone HCl (Dilaudid) 3 mg IVP Q4H PRN PRN Reason: Pain, severe (8-10) Last Admin: 01/11/17 10:00 Dose: 3 mg Hydroxyurea (Hydrea) 1,000 mg PO DAILY [facility] Last Admin: 01/11/17 09:58 Dose: 1,000 mg Piperacillin Sod/Tazobactam Sod (Zosyn 3.375 Gm Iv Premix) 3.375 gm in 50 mls @ 100 mls/hr IVPB Q6H [facility] Last Admin: 01/11/17 06:15 Dose: 100 mls/hr Azithromycin 500 mg/ Sodium (Chloride) 250 mls @ 250 mls/hr IVPB DAILY [facility] Metoprolol Tartrate (Lopressor) 5 mg IVP Q6H [facility] Last Admin: 01/11/17 15:06 Dose: Not Given Pantoprazole Sodium (Protonix Inj) 40 mg IVP DAILY [facility] Last Admin: 01/11/17 09:58 Dose: 40 mg Prednisone (Prednisone Tab) 5 mg PO DAILY [facility] Last Admin: 01/10/17 09:29 Dose: 5 mg Sennosides (Senokot Tab) 8.6 mg PO HS [facility] Last Admin: 01/10/17 22:34 Dose: 8.6 mg Sucralfate (Carafate Oral Susp) 1 gm PO Q6H [facility] Stop: 01/12/17 16:16 Last Admin: 01/11/17 09:59 Dose: 1 gm Thiamine HCl (Vitamin B1 Tab) 100 mg PO DAILY [facility] Last Admin: 01/11/17 09:58 Dose: 100 mg - Labs Labs: 01/11/17 06:46 01/11/17 06:46 PT 13.0 SECONDS (9.7-12.2) H 01/07/17 09:12 INR 1.1 01/07/17 09:12 APTT 49 SECONDS (21-34) H D 01/09/17 18:29 - Head Exam Head Exam: ATRAUMATIC - Eye Exam Eye Exam: Normal appearance - ENT Exam ENT Exam: Mucous Membranes Dry - Respiratory Exam Respiratory Exam: NORMAL BREATHING PATTERN - Cardiovascular Exam Cardiovascular Exam: +S1, +S2 - GI/Abdominal Exam GI & Abdominal Exam: Normal Bowel Sounds - Extremities Exam Extremities Exam: Normal Inspection Assessment and Plan (1) Acute chest syndrome due to sickle cell crisis Assessment & Plan: resolving s/p red cell exchange Status: Acute (2) Sickle cell pain crisis Assessment & Plan: IV fluids, pain meds, folic acid, 02 via NC transfusion support if hgb < 7 Status: Acute (3) Leukocytosis Assessment & Plan: on antibiotics may have reactive component from sickle cell Status: Acute
[2017-01-11] MEDS: Azithromycin 500 MG in Sodium Chloride 0.9% 250 ML IVPB SCH (19:14)
[2017-01-12] MEDS: Piperacill/Tazo 3.375gm in Dex 3.375 GM/50 ML BAG IVPB SCH ×4 (00:08→17:49)
[2017-01-12] MEDS: Metoprolol 1 mg/ml Inj IVP SCH ×4 (01:24→19:35)
[2017-01-12] MEDS: Sucralfate 1 gm/10 ml Oral Susp UD PO SCH ×2 (03:42→10:14)
[2017-01-12] MEDS: Morphine 30 mg SR Tab PO SCH ×2 (06:13→17:48)
[2017-01-12 06:27] LABS: BASO # 0.1 K/uL (0.0-0.2); BASO % 0.3 % (0.0-2.0); EOS # 0.4 K/uL (0.0-0.7); EOS % 1.9 % (0.0-4.0); HEMATOCRIT 21.7 % (34.0-47.0); LYMPH # 4.9 K/uL (1.0-4.3); LYMPH % 22.5 % (20.0-40.0); MEAN CELL VOLUME 81.5 fL (81.0-99.0); MEAN CORPUSCULAR HEMOGLOBIN 27.1 pg (27.0-31.0); MEAN CORPUSCULAR HGB CONC 33.3 g/dL (33.0-37.0); MONO % 4.4 % (0.0-10.0); PLATELET COUNT 183 K/uL (130-400); RED CELL DISTRIBUTION WIDTH 21.7 % (11.5-14.5); WHITE BLOOD COUNT 21.9 K/uL (4.8-10.8)
[2017-01-12 06:36] LABS: CHLORIDE 107 mmol/L (98-107)
[2017-01-12 06:37] LABS: POTASSIUM 3.3 mmol/L (3.6-5.2); SODIUM 139 mmol/L (132-148)
[2017-01-12 06:39] LABS: AST/SGOT 25 U/L (14-36); BILIRUBIN,TOTAL 0.4 mg/dL (0.2-1.3); CARBON DIOXIDE 29 mmol/L (22-30); GFR AFRICAN-AMERICAN > 60
[2017-01-12 06:40] LABS: ALB/GLOB RATIO 0.7 (1.0-2.1); ALKALINE PHOSPHATASE 48 U/L (38-126); ALT/SGPT 43 U/L (9-52); BLOOD UREA NITROGEN 10 mg/dL (7-17); GLUCOSE,RANDOM 77 mg/dL (65-105); MAGNESIUM 1.8 mg/dL (1.6-2.3); PHOSPHOROUS 2.5 mg/dL (2.5-4.5)
[2017-01-12] MEDS: Albuterol-Ipratrop 3 mg / 0.5 (3 ml) UD INH PRN (07:30)
--- NOTE | 2017-01-12 10:10 | CARD ---
APPROVED REPORT EKG Measurement Heart [id number] ID [id number] <Conclusion> Artifact limb leads Otherwise normal ECG
[2017-01-12] MEDS: Azithromycin 500 MG in Sodium Chloride 0.9% 250 ML IVPB SCH (10:12)
[2017-01-12] MEDS: Enoxaparin 40 mg Syringe SC SCH (10:13)
[2017-01-12] MEDS: Calcium Carbonate 500 mg Chewable Antacid Tab PO SCH ×2 (10:13→17:48)
[2017-01-12 10:35] LABS: EOSINOPHIL 1 % (0-4); NEUTROPHIL 74 % (50-75); NUCLEATED RED BLOOD CELL 75 % (0-0); TOTAL CELLS COUNTED 100
[2017-01-12 10:37] LABS: GIANT PLATELETS PRESENT
[2017-01-12 10:38] LABS: SPHEROCYTES SLIGHT
--- NOTE | 2017-01-12 13:11 | CP.PCM.PN ---
Subjective - Date & Time of Evaluation Date of Evaluation: 01/12/17 Time of Evaluation: 09:00 - Subjective Subjective: awake alert denies chest pain' less SOB Objective - Vital Signs/Intake and Output Vital Signs (last 24 hours): Temp Pulse Resp BP Pulse Ox 98.2 F 75 14 113/64 100 01/12/17 00:00 01/12/17 03:08 01/12/17 03:08 01/12/17 04:10 01/12/17 03:08 Intake and Output: 01/12/17 01/12/17 06:59 18:59 Intake Total 1620 770 Output Total 1590 335 Balance 30 435 - Medications Medications: Current Medications Acetaminophen (Tylenol 325mg Tab) 650 mg PO Q6 PRN PRN Reason: Fever >100.4 F Last Admin: 01/09/17 21:02 Dose: 650 mg Albuterol/Ipratropium (Duoneb 3 Mg/0.5 Mg (3 Ml) Ud) 3 ml INH RQ6 PRN PRN Reason: Wheezing Last Admin: 01/12/17 07:30 Dose: 3 ml Ascorbic Acid (Vitamin C 500 Mg Tab) 500 mg PO DAILY [facility] Last Admin: 01/12/17 10:13 Dose: 500 mg Calcium Carbonate (Tums) 500 mg PO BID [facility] Last Admin: 01/12/17 10:13 Dose: 500 mg Diltiazem HCl (Cardizem) 5 mg IVP Q5M PRN PRN Reason: Heart rate Diphenhydramine HCl (Benadryl) 25 mg IVP Q4 PRN PRN Reason: Itching / Pruritus Last Admin: 01/11/17 10:00 Dose: 25 mg Donepezil HCl (Aricept) 10 mg PO HS [facility] Last Admin: 01/11/17 22:02 Dose: 10 mg Enoxaparin Sodium (Lovenox) 40 mg SC DAILY [facility] Last Admin: 01/12/17 10:13 Dose: 40 mg Fentanyl (Duragesic) 1 patch TD Q72H [facility] Last Admin: 01/09/17 17:55 Dose: 1 patch Folic Acid (Folic Acid) 1 mg PO DAILY [facility] Last Admin: 01/12/17 10:14 Dose: 1 mg Hydromorphone HCl (Dilaudid) 3 mg IVP Q4H PRN PRN Reason: Pain, severe (8-10) Last Admin: 01/11/17 10:00 Dose: 3 mg Hydroxyurea (Hydrea) 1,000 mg PO DAILY [facility] Last Admin: 01/12/17 10:13 Dose: 1,000 mg Piperacillin Sod/Tazobactam Sod (Zosyn 3.375 Gm Iv Premix) 3.375 gm in 50 mls @ 100 mls/hr IVPB Q6H [facility] Last Admin: 01/12/17 12:22 Dose: 100 mls/hr Azithromycin 500 mg/ Sodium (Chloride) 250 mls @ 250 mls/hr IVPB DAILY [facility] Last Admin: 01/12/17 10:12 Dose: 250 mls/hr Metoprolol Tartrate (Lopressor) 5 mg IVP Q6H [facility] Last Admin: 01/12/17 06:18 Dose: 5 mg Morphine Sulfate (Morphine Extended Release Tab) 60 mg PO 0600,1800 [facility] Last Admin: 01/12/17 06:13 Dose: 60 mg Pantoprazole Sodium (Protonix Ec Tab) 40 mg PO DAILY [facility] Prednisone (Prednisone Tab) 5 mg PO DAILY [facility] Last Admin: 01/12/17 10:13 Dose: 5 mg Sennosides (Senokot Tab) 8.6 mg PO HS [facility] Last Admin: 01/11/17 22:02 Dose: 8.6 mg Thiamine HCl (Vitamin B1 Tab) 100 mg PO DAILY [facility] Last Admin: 01/12/17 10:13 Dose: 100 mg - Labs Labs: 01/12/17 06:18 01/12/17 06:17 PT 13.0 SECONDS (9.7-12.2) H 01/07/17 09:12 INR 1.1 01/07/17 09:12 APTT 49 SECONDS (21-34) H D 01/09/17 18:29 - Constitutional Appears: Non-toxic, Cachectic, Chronically Ill - Head Exam Head Exam: NORMOCEPHALIC - Eye Exam Eye Exam: PERRL. absent: Scleral icterus - ENT Exam ENT Exam: Mucous Membranes Dry, Normal External Ear Exam - Neck Exam Neck Exam: absent: Lymphadenopathy - Respiratory Exam Respiratory Exam: Decreased Breath Sounds - Cardiovascular Exam Cardiovascular Exam: REGULAR RHYTHM - GI/Abdominal Exam GI & Abdominal Exam: Distended, Soft - Rectal Exam Rectal Exam: Deferred - Exam Exam: NORMAL INSPECTION - Extremities Exam Extremities Exam: absent: Calf Tenderness, Pedal Edema - Back Exam Back Exam: absent: CVA tenderness (L), CVA tenderness (R) - Neurological Exam Neurological Exam: Alert, Awake, Oriented x3 Assessment and Plan (1) Acute chest syndrome due to sickle cell crisis Status: Acute (2) Sickle cell disease Status: Acute (3) Hip pain Status: Acute (4) Leukocytosis Status: Acute (5) Pneumonia Status: Acute (6) Sickle cell crisis Status: Acute
--- NOTE | 2017-01-12 14:00 | CP.CCUPN ---
CCU Subjective - Physician Review Subjective (Free Text): 01/12/17 13:58 PGY-1 progress note Pt seen and examined at bedside. There were no overnight events per staff. She reports improvement in symptoms but does admit to some pain, especially in the lower extremities. Denies any fevers, chills, chest pain, sob, nausea or vomiting. Critical Care Time Spent (in minutes): 35 CCU Objective - Vital Signs / Intake & Output Intake and Output (Last 8hrs): Intake & Output 01/11/17 01/12/17 01/12/17 22:59 06:59 14:59 Intake Total 1450 970 770 Output Total 1045 1045 335 Balance 405 -75 435 Intake: Intake, IV Amount 375 100 350 LEFT ARM 75 50 350 Left Upper arm 300 50 Oral 1075 870 420 Output: Urine 1045 1045 335 2-way Urethral 645 1045 335 Urine, Voided 400 Other: # Bowel Movements 0 0 0 - Physical Exam Head: Positive for: Atraumatic, Normocephalic Pupils: Positive for: PERRL Extroacular Muscles: Positive for: EOMI Conjunctiva: Positive for: Normal Mouth: Positive for: Moist Mucous Membranes Respiratory/Chest: Positive for: Good Air Exchange, Decreased Breath Sounds Cardiovascular: Positive for: Normal S1, S2 Abdomen: Positive for: Normal Bowel Sounds. Negative for: Tenderness, Distention Upper Extremity: Positive for: Normal Inspection Lower Extremity: Positive for: Other (contracted) Neurological: Positive for: GCS=15 Skin: Positive for: Warm, Dry Psychiatric: Positive for: Alert, Oriented x 3 - Medications Active Medications: Active Medications Generic Name Dose Route Start Last Admin Trade Name Freq PRN Reason Stop Dose Admin Acetaminophen 650 mg 01/09/17 20:44 01/09/17 21:02 Tylenol 325mg Tab PO 650 mg Q6 PRN Administration Fever >100.4 F Albuterol/Ipratropium 3 ml 01/11/17 09:33 01/12/17 07:30 Duoneb 3 Mg/0.5 Mg (3 Ml) Ud INH 3 ml RQ6 PRN Administration Wheezing Ascorbic Acid 500 mg 01/08/17 10:00 01/12/17 10:13 Vitamin C 500 Mg Tab PO 500 mg DAILY JESSICA Administration Calcium Carbonate 500 mg 01/10/17 22:15 01/12/17 10:13 Tums PO 500 mg BID JESSICA Administration Diltiazem HCl 5 mg 01/09/17 10:35 Cardizem IVP Q5M PRN Heart rate Diphenhydramine HCl 25 mg 01/07/17 12:48 01/11/17 10:00 Benadryl IVP 25 mg Q4 PRN Administration Itching / Pruritus Donepezil HCl 10 mg 01/07/17 22:00 01/11/17 22:02 Aricept PO 10 mg HS JESSICA Administration Enoxaparin Sodium 40 mg 01/10/17 13:00 01/12/17 10:13 Lovenox SC 40 mg DAILY [facility] Administration Fentanyl 1 patch 01/09/17 16:30 01/09/17 17:55 Duragesic TD 1 patch Q72H [facility]ESS[facility] Administration Folic Acid 1 mg 01/08/17 10:00 01/12/17 10:14 Folic Acid PO 1 mg DAILY [facility] Administration Hydromorphone HCl 3 mg 01/07/17 15:47 01/11/17 10:00 Dilaudid IVP 3 mg Q4H PRN Administration Pain, severe (8-10) Hydroxyurea 1,000 mg 01/09/17 11:45 01/12/17 10:13 Hydrea PO 1,000 mg DAILY [facility] Administration Piperacillin Sod/Tazobactam Sod 3.375 gm in 50 mls @ 100 mls/hr 01/09/17 12: 00 01/12/17 12:22 Zosyn 3.375 Gm Iv Premix IVPB 100 mls/hr Q6H [facility] Administration Azithromycin 500 mg/ Sodium 250 mls @ 250 mls/hr 01/11/17 16:00 01/12/17 10: 12 Chloride IVPB 250 mls/hr DAILY [facility] Administration Metoprolol Tartrate 5 mg 01/09/17 19:15 01/12/17 06:18 Lopressor IVP 5 mg Q6H [facility] Administration Morphine Sulfate 60 mg 01/11/17 18:00 01/12/17 06:13 Morphine Extended Release Tab PO 60 mg 0600,1800 [facility] Administration Pantoprazole Sodium 40 mg 01/13/17 10:00 Protonix Ec Tab PO DAILY [facility] Prednisone 5 mg 01/08/17 10:00 01/12/17 10:13 Prednisone Tab PO 5 mg DAILY [facility] Administration Sennosides 8.6 mg 01/07/17 22:00 01/11/17 22:02 Senokot Tab PO 8.6 mg HS JESSICA Administration Thiamine HCl 100 mg 01/09/17 10:00 01/12/17 10:13 Vitamin B1 Tab PO 100 mg DAILY J[facility] Administration - Patient Studies Lab Studies: Microbiology Studies 01/09/17 00:30 Blood Culture - Preliminary Blood-Thru [facility] Line NO GROWTH AFTER 3 DAYS 01/09/17 00:00 Blood Culture - Preliminary Blood-Thru Central Line NO GROWTH AFTER 3 DAYS Lab Studies 01/12/17 01/12/17 Range/Units 06:18 06:17 WBC 21.9 H (4.8-10.8) K/uL RBC 2.66 L (3.80-5.20) Mil/uL Hgb 7.2 L (11.0-16.0) g/dL Hct 21.7 L (34.0-47.0) % MCV 81.5 (81.0-99.0) fL MCH 27.1 (27.0-31.0) pg MCHC 33.3 (33.0-37.0) g/dL RDW 21.7 H (11.5-14.5) % Plt Count 183 (130-400) K/uL MPV 9.0 (7.2-11.7) fL Neut % (Auto) 70.9 (50.0-75.0) % Lymph % (Auto) 22.5 (20.0-40.0) % [place] % (Auto) 4.4 (0.0-10.0) % Eos % (Auto) 1.9 (0.0-4.0) % Baso % (Auto) 0.3 (0.0-2.0) % Neut # 15.5 H (1.8-7.0) K/uL Lymph # 4.9 H (1.0-4.3) K/uL [place] # 1.0 H (0.0-0.8) K/uL Eos # 0.4 (0.0-0.7) K/uL Baso # 0.1 (0.0-0.2) K/uL Neutrophils % (Manual) 74 (50-75) % Lymphocytes % (Manual) 22 (20-40) % Monocytes % (Manual) 3 (0-10) % Eosinophils % (Manual) 1 (0-4) % Nucleated RBC % 75 H (0-0) % Platelet Estimate Normal (NORMAL) Giant Platelets Present Polychromasia Slight Hypochromasia (manual) Slight Anisocytosis (manual) Slight Microcytosis (manual) Slight Macrocytosis (manual) Slight Spherocytes Slight Target Cells Slight Sodium 139 (132-148) mmol/L Potassium 3.3 L (3.6-5.2) mmol/L Chloride 107 (98-107) mmol/L Carbon Dioxide 29 (22-30) mmol/L Anion Gap 6 L (10-20) BUN 10 (7-17) mg/dL Creatinine 0.6 L (0.7-1.2) MG/DL Est GFR ( Amer) > 60 Est GFR (Non-Af Amer) > 60 Random Glucose 77 (65-105) mg/dL Calcium 8.0 L (8.6-10.4) mg/dl Phosphorus 2.5 (2.5-4.5) mg/dL Magnesium 1.8 (1.6-2.3) mg/dL Total Bilirubin 0.4 (0.2-1.3) mg/dL AST 25 (14-36) U/L ALT 43 (9-52) U/L Alkaline Phosphatase 48 (38-126) U/L Total Protein 5.0 L (6.3-8.3) g/dL Albumin 2.1 L D (3.5-5.0) g/dL Globulin 2.9 (2.2-3.9) gm/dL Albumin/Globulin Ratio 0.7 L (1.0-2.1) Laboratory Results - last 24 hr 01/12/17 01/12/17 06:17 06:18 WBC 21.9 H RBC 2.66 L Hgb 7.2 L Hct 21.7 L MCV 81.5 MCH 27.1 MCHC 33.3 RDW 21.7 H Plt Count 183 MPV 9.0 Neut % (Auto) 70.9 Lymph % (Auto) 22.5 [place] % (Auto) 4.4 Eos % (Auto) 1.9 Baso % (Auto) 0.3 Neut # 15.5 H Lymph # 4.9 H [place] # 1.0 H Eos # 0.4 Baso # 0.1 Neutrophils % (Manual) 74 Lymphocytes % (Manual) 22 Monocytes % (Manual) 3 Eosinophils % (Manual) 1 Nucleated RBC % 75 H Platelet Estimate Normal Giant Platelets Present Polychromasia Slight Hypochromasia (manual) Slight Anisocytosis (manual) Slight Microcytosis (manual) Slight Macrocytosis (manual) Slight Spherocytes Slight Target Cells Slight Sodium 139 Potassium 3.3 L Chloride 107 Carbon Dioxide 29 Anion Gap 6 L BUN 10 Creatinine 0.6 L Est GFR ( Amer) > 60 Est GFR (Non-Af Amer) > 60 Random Glucose 77 Calcium 8.0 L Phosphorus 2.5 Magnesium 1.8 Total Bilirubin 0.4 AST 25 ALT 43 Alkaline Phosphatase 48 Total Protein 5.0 L Albumin 2.1 L D Globulin 2.9 Albumin/Globulin Ratio 0.7 L Fingerstick Blood Sugar Results: 143 Review of Systems - Review of Systems All systems: reviewed and no additional remarkable complaints except Critical Care Progress Note - Nutrition Nutrition: Nutrition Category Date Time Status Regular Diet [DIET] Diets 01/07/17 Dinner Active Assessment/Plan - Assessment and Plan (Free Text) Assessment: 46-year-old female, PMHx includes Anemia, Arthritis, CVA, Dementia, Depression, Hypertension, Sickle Cell Disease. Presents with pain typical of her sickle cell crisis. Patient was admitted to Tele but became severely tachycardic and hypoxic, not on Lovenox. Most likely PE. Transferred to ICU for further management. Plan: Neuro: alert and oriented x 3 Pulm: acute chest syndrome now resolved. Chest CT - Bilateral primarily lower lobe infiltrates. Infectious/inflammatory etiologies are most likely. CV: hemodynamically stable Hem: sickle cell crisis c/b acute chest syndrome. Folic acid, hydroxyurea, fluids. s/p blood exchange transfusion (01/09/17), with improvement in symptoms. Consult Hem/Onc - Dr. Shepherd. Rheum: patient has rheumatoid arthritis, usually on methotrexate. Both methotrexate and hydroxyurea are myelosuppressants, patient should be started on an alternative RA medication. Will consult with Rheumatology, if available. Renal: no acute issues, urine output wnl, will monitor. Stopping fluids, good by mouth intake. Endo: no acute issues GI: low sodium diet ID: empiric coverage with Zosyn, continue full 5 day course. Possible underlying pneumonia. DVT proph - lovenox GI proph - protonix ayala for strict I/O's during acute illness Code status - full code
--- NOTE | 2017-01-12 14:08 | CP.PCM.PN ---
Subjective - Date & Time of Evaluation Date of Evaluation: 01/12/17 Time of Evaluation: 15:00 - Subjective Subjective: clinically same Objective - Vital Signs/Intake and Output Vital Signs (last 24 hours): Temp Pulse Resp BP Pulse Ox 98.2 F 75 14 113/64 100 01/12/17 00:00 01/12/17 03:08 01/12/17 03:08 01/12/17 04:10 01/12/17 03:08 Intake and Output: 01/12/17 01/12/17 06:59 18:59 Intake Total 1620 770 Output Total 1590 335 Balance 30 435 - Medications Medications: Current Medications Acetaminophen (Tylenol 325mg Tab) 650 mg PO Q6 PRN PRN Reason: Fever >100.4 F Last Admin: 01/09/17 21:02 Dose: 650 mg Albuterol/Ipratropium (Duoneb 3 Mg/0.5 Mg (3 Ml) Ud) 3 ml INH RQ6 PRN PRN Reason: Wheezing Last Admin: 01/12/17 07:30 Dose: 3 ml Ascorbic Acid (Vitamin C 500 Mg Tab) 500 mg PO DAILY [facility] Last Admin: 01/12/17 10:13 Dose: 500 mg Calcium Carbonate (Tums) 500 mg PO BID [facility] Last Admin: 01/12/17 10:13 Dose: 500 mg Diltiazem HCl (Cardizem) 5 mg IVP Q5M PRN PRN Reason: Heart rate Diphenhydramine HCl (Benadryl) 25 mg IVP Q4 PRN PRN Reason: Itching / Pruritus Last Admin: 01/11/17 10:00 Dose: 25 mg Donepezil HCl (Aricept) 10 mg PO HS [facility] Last Admin: 01/11/17 22:02 Dose: 10 mg Enoxaparin Sodium (Lovenox) 40 mg SC DAILY [facility] Last Admin: 01/12/17 10:13 Dose: 40 mg Fentanyl (Duragesic) 1 patch TD Q72H [facility] Last Admin: 01/09/17 17:55 Dose: 1 patch Folic Acid (Folic Acid) 1 mg PO DAILY [facility] Last Admin: 01/12/17 10:14 Dose: 1 mg Hydromorphone HCl (Dilaudid) 3 mg IVP Q4H PRN PRN Reason: Pain, severe (8-10) Last Admin: 01/11/17 10:00 Dose: 3 mg Hydroxyurea (Hydrea) 1,000 mg PO DAILY [facility] Last Admin: 01/12/17 10:13 Dose: 1,000 mg Piperacillin Sod/Tazobactam Sod (Zosyn 3.375 Gm Iv Premix) 3.375 gm in 50 mls @ 100 mls/hr IVPB Q6H [facility] Last Admin: 01/12/17 12:22 Dose: 100 mls/hr Azithromycin 500 mg/ Sodium (Chloride) 250 mls @ 250 mls/hr IVPB DAILY [facility] Last Admin: 01/12/17 10:12 Dose: 250 mls/hr Metoprolol Tartrate (Lopressor) 5 mg IVP Q6H [facility] Last Admin: 01/12/17 06:18 Dose: 5 mg Morphine Sulfate (Morphine Extended Release Tab) 60 mg PO 0600,1800 [facility] Last Admin: 01/12/17 06:13 Dose: 60 mg Pantoprazole Sodium (Protonix Ec Tab) 40 mg PO DAILY [facility] Prednisone (Prednisone Tab) 5 mg PO DAILY [facility] Last Admin: 01/12/17 10:13 Dose: 5 mg Sennosides (Senokot Tab) 8.6 mg PO HS [facility] Last Admin: 01/11/17 22:02 Dose: 8.6 mg Thiamine HCl (Vitamin B1 Tab) 100 mg PO DAILY [facility] Last Admin: 01/12/17 10:13 Dose: 100 mg - Labs Labs: 01/12/17 06:18 01/12/17 06:17 PT 13.0 SECONDS (9.7-12.2) H 01/07/17 09:12 INR 1.1 01/07/17 09:12 APTT 49 SECONDS (21-34) H D 01/09/17 18:29 - Constitutional Appears: Well - Head Exam Head Exam: ATRAUMATIC, NORMAL INSPECTION, NORMOCEPHALIC - Eye Exam Eye Exam: EOMI, Normal appearance, PERRL Pupil Exam: NORMAL ACCOMODATION, PERRL - ENT Exam ENT Exam: Mucous Membranes Moist, Normal Exam - Neck Exam Neck Exam: Full ROM, Normal Inspection. absent: Lymphadenopathy - Respiratory Exam Respiratory Exam: Decreased Breath Sounds - Cardiovascular Exam Cardiovascular Exam: REGULAR RHYTHM, +S1, +S2 - GI/Abdominal Exam GI & Abdominal Exam: Soft, Diminished Bowel Sounds - Rectal Exam Rectal Exam: Deferred Assessment and Plan - Assessment and Plan (Free Text) Plan: f/u with educational administrator f/u with ID f/u with institutional aide monitor H/H iv pain meds iv antibiotics Oxygen folic acid
--- NOTE | 2017-01-12 20:57 | CP.PCM.PN ---
Subjective - Date & Time of Evaluation Date of Evaluation: 01/12/17 Time of Evaluation: 20:00 - Subjective Subjective: Feeling better, still pain in legs Objective - Vital Signs/Intake and Output Vital Signs (last 24 hours): Temp Pulse Resp BP Pulse Ox 98.2 F 91 H 12 109/62 100 01/12/17 00:00 01/12/17 19:09 01/12/17 19:09 01/12/17 19:09 01/12/17 19:09 Intake and Output: 01/12/17 01/13/17 18:59 06:59 Intake Total 970 0 Output Total 2580 120 Balance -1610 -120 - Medications Medications: Current Medications Acetaminophen (Tylenol 325mg Tab) 650 mg PO Q6 PRN PRN Reason: Fever >100.4 F Last Admin: 01/09/17 21:02 Dose: 650 mg Albuterol/Ipratropium (Duoneb 3 Mg/0.5 Mg (3 Ml) Ud) 3 ml INH RQ6 PRN PRN Reason: Wheezing Last Admin: 01/12/17 07:30 Dose: 3 ml Ascorbic Acid (Vitamin C 500 Mg Tab) 500 mg PO DAILY [facility] Last Admin: 01/12/17 10:13 Dose: 500 mg Calcium Carbonate (Tums) 500 mg PO BID [facility] Last Admin: 01/12/17 17:48 Dose: 500 mg Diltiazem HCl (Cardizem) 5 mg IVP Q5M PRN PRN Reason: Heart rate Diphenhydramine HCl (Benadryl) 25 mg IVP Q4 PRN PRN Reason: Itching / Pruritus Last Admin: 01/11/17 10:00 Dose: 25 mg Donepezil HCl (Aricept) 10 mg PO HS [facility] Last Admin: 01/11/17 22:02 Dose: 10 mg Enoxaparin Sodium (Lovenox) 40 mg SC DAILY [facility] Last Admin: 01/12/17 10:13 Dose: 40 mg Fentanyl (Duragesic) 1 patch TD Q72H [facility] Last Admin: 01/12/17 16:34 Dose: 1 patch Folic Acid (Folic Acid) 1 mg PO DAILY [facility] Last Admin: 01/12/17 10:14 Dose: 1 mg Hydromorphone HCl (Dilaudid) 3 mg IVP Q4H PRN PRN Reason: Pain, severe (8-10) Last Admin: 01/11/17 10:00 Dose: 3 mg Hydroxyurea (Hydrea) 1,000 mg PO DAILY [facility] Last Admin: 01/12/17 10:13 Dose: 1,000 mg Piperacillin Sod/Tazobactam Sod (Zosyn 3.375 Gm Iv Premix) 3.375 gm in 50 mls @ 100 mls/hr IVPB Q6H [facility] Last Admin: 01/12/17 17:49 Dose: 100 mls/hr Azithromycin 500 mg/ Sodium (Chloride) 250 mls @ 250 mls/hr IVPB DAILY [facility] Last Admin: 01/12/17 10:12 Dose: 250 mls/hr Metoprolol Tartrate (Lopressor) 5 mg IVP Q6H [facility] Last Admin: 01/12/17 19:35 Dose: 5 mg Morphine Sulfate (Morphine Extended Release Tab) 60 mg PO 0600,1800 [facility] Last Admin: 01/12/17 17:48 Dose: 60 mg Pantoprazole Sodium (Protonix Ec Tab) 40 mg PO DAILY [facility] Prednisone (Prednisone Tab) 5 mg PO DAILY [facility] Last Admin: 01/12/17 10:13 Dose: 5 mg Sennosides (Senokot Tab) 8.6 mg PO HS [facility] Last Admin: 01/11/17 22:02 Dose: 8.6 mg Thiamine HCl (Vitamin B1 Tab) 100 mg PO DAILY [facility] Last Admin: 01/12/17 10:13 Dose: 100 mg - Labs Labs: 01/12/17 06:18 01/12/17 06:17 PT 13.0 SECONDS (9.7-12.2) H 01/07/17 09:12 INR 1.1 01/07/17 09:12 APTT 49 SECONDS (21-34) H D 01/09/17 18:29 - Head Exam Head Exam: ATRAUMATIC - Eye Exam Eye Exam: Normal appearance - ENT Exam ENT Exam: Mucous Membranes Dry - Respiratory Exam Respiratory Exam: NORMAL BREATHING PATTERN - Cardiovascular Exam Cardiovascular Exam: +S1, +S2 - GI/Abdominal Exam GI & Abdominal Exam: Normal Bowel Sounds - Extremities Exam Extremities Exam: Normal Inspection Assessment and Plan (1) Acute chest syndrome due to sickle cell crisis Assessment & Plan: resolved s/p red cell exchange Status: Acute (2) Sickle cell pain crisis Assessment & Plan: IV fluids, folic acid, pain meds, 02 via [place] s/p red cell exchange Status: Acute (3) Leukocytosis Assessment & Plan: on antibiotics may have reactive component related to sickle cell Status: Acute
[2017-01-13] MEDS: Piperacill/Tazo 3.375gm in Dex 3.375 GM/50 ML BAG IVPB SCH ×3 (00:43→19:21)
[2017-01-13] MEDS: Metoprolol 1 mg/ml Inj IVP SCH ×4 (00:43→19:19)
[2017-01-13 06:18] LABS: BASO # 0.1 K/uL (0.0-0.2); BASO % 0.4 % (0.0-2.0); EOS # 0.5 K/uL (0.0-0.7); EOS % 2.5 % (0.0-4.0); HEMATOCRIT 24.1 % (34.0-47.0); LYMPH # 1.6 K/uL (1.0-4.3); LYMPH % 7.6 % (20.0-40.0); MEAN CELL VOLUME 83.4 fL (81.0-99.0); MEAN CORPUSCULAR HEMOGLOBIN 26.8 pg (27.0-31.0); MEAN CORPUSCULAR HGB CONC 32.1 g/dL (33.0-37.0); MEAN PLATELET VOLUME 8.9 fL (7.2-11.7); MONO # 1.9 K/uL (0.0-0.8); MONO % 8.9 % (0.0-10.0); NRBC % 197.6 % (0.0-2.0); PLATELET COUNT 204 K/uL (130-400); RED CELL DISTRIBUTION WIDTH 22.4 % (11.5-14.5); WHITE BLOOD COUNT 21.4 K/uL (4.8-10.8)
[2017-01-13 06:27] LABS: CHLORIDE 99 mmol/L (98-107)
[2017-01-13 06:28] LABS: SODIUM 136 mmol/L (132-148)
[2017-01-13 06:30] LABS: ALB/GLOB RATIO 0.7 (1.0-2.1); ALKALINE PHOSPHATASE 52 U/L (38-126); ALT/SGPT 44 U/L (9-52); AST/SGOT 26 U/L (14-36); BILIRUBIN,TOTAL 0.6 mg/dL (0.2-1.3); BLOOD UREA NITROGEN 7 mg/dL (7-17); CARBON DIOXIDE 34 mmol/L (22-30); GFR AFRICAN-AMERICAN > 60; GLUCOSE,RANDOM 86 mg/dL (65-105); TOTAL PROTEIN 5.4 g/dL (6.3-8.3)
[2017-01-13 06:31] LABS: CALCIUM 8.2 mg/dl (8.6-10.4); MAGNESIUM 1.8 mg/dL (1.6-2.3); PHOSPHOROUS 3.4 mg/dL (2.5-4.5)
[2017-01-13 06:32] LABS: POTASSIUM 3.3 mmol/L (3.6-5.2)
[2017-01-13] MEDS: Morphine 30 mg SR Tab PO SCH ×2 (06:35→19:20)
[2017-01-13 09:16] LABS: BLASTS 1 % (0-0); EOSINOPHIL 4 % (0-4); NEUTROPHIL 78 % (50-75); NUCLEATED RED BLOOD CELL 283 % (0-0); TOTAL CELLS COUNTED 100
[2017-01-13 09:17] LABS: LARGE PLATELETS PRESENT
[2017-01-13 09:18] LABS: GIANT PLATELETS PRESENT
[2017-01-13] MEDS ORDERED: Potassium Chloride 20 mEq ER Tab PO ONE (09:22)
[2017-01-13] MEDS: Calcium Carbonate 500 mg Chewable Antacid Tab PO SCH ×2 (10:20→19:20)
[2017-01-13] MEDS: Azithromycin 500 MG in Sodium Chloride 0.9% 250 ML IVPB SCH (10:21)
--- NOTE | 2017-01-13 10:23 | CP.PCM.PN ---
Subjective - Date & Time of Evaluation Date of Evaluation: 01/13/17 Time of Evaluation: 08:00 - Subjective Subjective: weak and bed bound less SOB denies chest pain afebrile Objective - Vital Signs/Intake and Output Vital Signs (last 24 hours): Temp Pulse Resp BP Pulse Ox 98.5 F 84 16 118/78 100 01/13/17 00:00 01/13/17 07:00 01/13/17 07:00 01/13/17 07:09 01/13/17 07:00 Intake and Output: 01/13/17 01/13/17 06:59 18:59 Intake Total 1290 0 Output Total 1450 150 Balance -160 -150 - Medications Medications: Current Medications Acetaminophen (Tylenol 325mg Tab) 650 mg PO Q6 PRN PRN Reason: Fever >100.4 F Last Admin: 01/09/17 21:02 Dose: 650 mg Albuterol/Ipratropium (Duoneb 3 Mg/0.5 Mg (3 Ml) Ud) 3 ml INH RQ6 PRN PRN Reason: Wheezing Last Admin: 01/12/17 07:30 Dose: 3 ml Ascorbic Acid (Vitamin C 500 Mg Tab) 500 mg PO DAILY [facility] Last Admin: 01/12/17 10:13 Dose: 500 mg Calcium Carbonate (Tums) 500 mg PO BID [facility] Last Admin: 01/12/17 17:48 Dose: 500 mg Diltiazem HCl (Cardizem) 5 mg IVP Q5M PRN PRN Reason: Heart rate Diphenhydramine HCl (Benadryl) 25 mg IVP Q4 PRN PRN Reason: Itching / Pruritus Last Admin: 01/11/17 10:00 Dose: 25 mg Donepezil HCl (Aricept) 10 mg PO HS [facility] Last Admin: 01/12/17 22:30 Dose: 10 mg Enoxaparin Sodium (Lovenox) 40 mg SC DAILY [facility] Last Admin: 01/12/17 10:13 Dose: 40 mg Fentanyl (Duragesic) 1 patch TD Q72H [facility] Last Admin: 01/12/17 16:34 Dose: 1 patch Folic Acid (Folic Acid) 1 mg PO DAILY [facility] Last Admin: 01/12/17 10:14 Dose: 1 mg Hydromorphone HCl (Dilaudid) 3 mg IVP Q4H PRN PRN Reason: Pain, severe (8-10) Last Admin: 01/11/17 10:00 Dose: 3 mg Hydroxyurea (Hydrea) 1,000 mg PO DAILY [facility] Last Admin: 01/12/17 10:13 Dose: 1,000 mg Piperacillin Sod/Tazobactam Sod (Zosyn 3.375 Gm Iv Premix) 3.375 gm in 50 mls @ 100 mls/hr IVPB Q6H [facility] Last Admin: 01/13/17 06:34 Dose: 100 mls/hr Azithromycin 500 mg/ Sodium (Chloride) 250 mls @ 250 mls/hr IVPB DAILY [facility] Last Admin: 01/12/17 10:12 Dose: 250 mls/hr Metoprolol Tartrate (Lopressor) 5 mg IVP Q6H [facility] Last Admin: 01/13/17 06:34 Dose: 5 mg Morphine Sulfate (Morphine Extended Release Tab) 60 mg PO 0600,1800 [facility] Last Admin: 01/13/17 06:35 Dose: 60 mg Pantoprazole Sodium (Protonix Ec Tab) 40 mg PO DAILY [facility] Prednisone (Prednisone Tab) 5 mg PO DAILY [facility] Last Admin: 01/12/17 10:13 Dose: 5 mg Sennosides (Senokot Tab) 8.6 mg PO HS [facility] Last Admin: 01/12/17 22:30 Dose: 8.6 mg Thiamine HCl (Vitamin B1 Tab) 100 mg PO DAILY [facility] Last Admin: 01/12/17 10:13 Dose: 100 mg - Labs Labs: 01/13/17 06:07 01/13/17 06:07 PT 13.0 SECONDS (9.7-12.2) H 01/07/17 09:12 INR 1.1 01/07/17 09:12 APTT 49 SECONDS (21-34) H D 01/09/17 18:29 - Constitutional Appears: Non-toxic, Chronically Ill - Eye Exam Eye Exam: Normal appearance, PERRL. absent: Scleral icterus - ENT Exam ENT Exam: Mucous Membranes Dry, Normal External Ear Exam - Neck Exam Neck Exam: absent: Lymphadenopathy, Thyromegaly - Respiratory Exam Respiratory Exam: Decreased Breath Sounds, Rhonchi - Cardiovascular Exam Cardiovascular Exam: REGULAR RHYTHM, +S1, +S2 - GI/Abdominal Exam GI & Abdominal Exam: Distended, Soft. absent: Tenderness - Rectal Exam Rectal Exam: Deferred - Exam Exam: NORMAL INSPECTION - Extremities Exam Extremities Exam: absent: Pedal Edema - Back Exam Back Exam: absent: CVA tenderness (L), CVA tenderness (R) - Neurological Exam Neurological Exam: Alert, Awake, Oriented x3 Neuro motor strength exam: Left Upper Extremity: 4, Right Upper Extremity: 4, Left Lower Extremity: 4, Right Lower Extremity: 4 - Psychiatric Exam Psychiatric exam: Depressed Assessment and Plan (1) Acute chest syndrome due to sickle cell crisis Status: Acute (2) Sickle cell disease Status: Acute (3) Hip pain Status: Acute (4) Leukocytosis Status: Acute (5) Pneumonia Status: Acute (6) Sickle cell crisis Status: Acute - Assessment and Plan (Free Text) Assessment: s/p acute chest syndrome exchange transfusion by dr Shepherd cont iv antibiotics x 7 days
[2017-01-13] MEDS: Enoxaparin 40 mg Syringe SC SCH (11:19)
[2017-01-13] MEDS: Pantoprazole 40 mg EC Tab PO SCH (11:20)
--- NOTE | 2017-01-13 15:20 | CP.CCUPN ---
<Herber Peguero - Last Filed: 01/13/17 15:29> CCU Subjective - Physician Review Subjective (Free Text): 01/13/17 15:16 PGY-1 progress note Pt seen and examined at bedside. Still with pain, but she reports some improvement. Denies chest pain, palpitations, sob, nausea, vomiting, fevers, or chills. Critical Care Time Spent (in minutes): 35 CCU Objective - Vital Signs / Intake & Output Intake and Output (Last 8hrs): Intake & Output 01/13/17 01/13/17 01/13/17 06:59 14:59 22:59 Intake Total 920 0 Output Total 790 150 Balance 130 -150 Intake: Intake, IV Amount 100 0 Left Upper arm 100 0 Oral 820 0 Output: Urine 790 150 2-way Urethral 790 150 Other: # Bowel Movements 0 0 - Physical Exam Head: Positive for: Atraumatic, Normocephalic Pupils: Positive for: PERRL Extroacular Muscles: Positive for: EOMI Conjunctiva: Positive for: Normal Mouth: Positive for: Moist Mucous Membranes Respiratory/Chest: Positive for: Good Air Exchange, Decreased Breath Sounds Cardiovascular: Positive for: Normal S1, S2 Abdomen: Positive for: Normal Bowel Sounds. Negative for: Tenderness, Distention Upper Extremity: Positive for: Normal Inspection Lower Extremity: Positive for: Other (contracted) Neurological: Positive for: GCS=15 Skin: Positive for: Warm, Dry Psychiatric: Positive for: Alert, Oriented x 3 - Medications Active Medications: Active Medications Generic Name Dose Route Start Last Admin Trade Name Freq PRN Reason Stop Dose Admin Acetaminophen 650 mg 01/09/17 20:44 01/09/17 21:02 Tylenol 325mg Tab PO 650 mg Q6 PRN Administration Fever >100.4 F Albuterol/Ipratropium 3 ml 01/11/17 09:33 01/12/17 07:30 Duoneb 3 Mg/0.5 Mg (3 Ml) Ud INH 3 ml RQ6 PRN Administration Wheezing Ascorbic Acid 500 mg 01/08/17 10:00 01/12/17 10:13 Vitamin C 500 Mg Tab PO 500 mg DAILY [facility] Administration Calcium Carbonate 500 mg 01/10/17 22:15 01/12/17 17:48 Tums PO 500 mg BID [facility] Administration Diltiazem HCl 5 mg 01/09/17 10:35 Cardizem IVP Q5M PRN Heart rate Donepezil HCl 10 mg 01/07/17 22:00 01/12/17 22:30 Aricept PO 10 mg HS [facility] Administration Enoxaparin Sodium 40 mg 01/10/17 13:00 01/12/17 10:13 Lovenox SC 40 mg DAILY [facility] Administration Fentanyl 1 patch 01/09/17 16:30 01/12/17 16:34 Duragesic TD 1 patch Q72H [facility] Administration Folic Acid 1 mg 01/08/17 10:00 01/12/17 10:14 Folic Acid PO 1 mg DAILY [facility] Administration Hydromorphone HCl 1 mg 01/13/17 13:52 Dilaudid IVP Q4H PRN Pain, severe (8-10) Hydroxyurea 1,000 mg 01/09/17 11:45 01/12/17 10:13 Hydrea PO 1,000 mg DAILY [facility] Administration Piperacillin Sod/Tazobactam Sod 3.375 gm in 50 mls @ 100 mls/hr 01/09/17 12: 00 01/13/17 06:34 Zosyn 3.375 Gm Iv Premix IVPB 100 mls/hr Q6H [facility] Administration Azithromycin 500 mg/ Sodium 250 mls @ 250 mls/hr 01/11/17 16:00 01/12/17 10: 12 Chloride IVPB 250 mls/hr DAILY [facility] Administration Metoprolol Tartrate 5 mg 01/09/17 19:15 01/13/17 06:34 Lopressor IVP 5 mg Q6H [facility] Administration Morphine Sulfate 60 mg 01/11/17 18:00 01/13/17 06:35 Morphine Extended Release Tab PO 60 mg 0600,1800 [facility] Administration Pantoprazole Sodium 40 mg 01/13/17 10:00 Protonix Ec Tab PO DAILY [facility] Prednisone 5 mg 01/08/17 10:00 01/12/17 10:13 Prednisone Tab PO 5 mg DAILY [facility] Administration Sennosides 8.6 mg 01/07/17 22:00 01/12/17 22:30 Senokot Tab PO 8.6 mg HS [facility] Administration Thiamine HCl 100 mg 01/09/17 10:00 01/12/17 10:13 Vitamin B1 Tab PO 100 mg DAILY [facility] Administration - Patient Studies Lab Studies: Microbiology Studies 01/09/17 00:30 Blood Culture - Preliminary Blood-Thru Central Line NO GROWTH AFTER 4 DAYS 01/09/17 00:00 Blood Culture - Preliminary Blood-Thru Central Line NO GROWTH AFTER 4 DAYS Lab Studies 01/13/17 01/13/17 Range/Units 06:07 06:07 WBC 21.4 H (4.8-10.8) K/uL RBC 2.89 L (3.80-5.20) Mil/uL Hgb 7.7 L (11.0-16.0) g/dL Hct 24.1 L (34.0-47.0) % MCV 83.4 (81.0-99.0) fL MCH 26.8 L (27.0-31.0) pg MCHC 32.1 L (33.0-37.0) g/dL RDW 22.4 H (11.5-14.5) % Plt Count 204 (130-400) K/uL MPV 8.9 (7.2-11.7) fL Neut % (Auto) 80.6 H (50.0-75.0) % Lymph % (Auto) 7.6 L (20.0-40.0) % [place] % (Auto) 8.9 (0.0-10.0) % Eos % (Auto) 2.5 (0.0-4.0) % Baso % (Auto) 0.4 (0.0-2.0) % Neut # 17.2 H (1.8-7.0) K/uL Lymph # 1.6 (1.0-4.3) K/uL [place] # 1.9 H (0.0-0.8) K/uL Eos # 0.5 (0.0-0.7) K/uL Baso # 0.1 (0.0-0.2) K/uL Neutrophils % (Manual) 78 H (50-75) % Band Neutrophils % 1 (0-2) % Lymphocytes % (Manual) 12 L (20-40) % Monocytes % (Manual) 4 (0-10) % Eosinophils % (Manual) 4 (0-4) % Blast Cells % 1 H (0-0) % Nucleated RBC % 283 H (0-0) % Platelet Estimate Normal (NORMAL) Large Platelets Present Giant Platelets Present Polychromasia Slight Hypochromasia (manual) Slight Poikilocytosis (manual Slight Anisocytosis (manual) Slight Macrocytosis (manual) Slight Target Cells Slight Sodium 136 (132-148) mmol/L Potassium 3.3 L (3.6-5.2) mmol/L Chloride 99 (98-107) mmol/L Carbon Dioxide 34 H (22-30) mmol/L Anion Gap 6 L (10-20) BUN 7 (7-17) mg/dL Creatinine 0.6 L (0.7-1.2) MG/DL Est GFR ( Amer) > 60 Est GFR (Non-Af Amer) > 60 Random Glucose 86 (65-105) mg/dL Calcium 8.2 L (8.6-10.4) mg/dl Phosphorus 3.4 (2.5-4.5) mg/dL Magnesium 1.8 (1.6-2.3) mg/dL Total Bilirubin 0.6 (0.2-1.3) mg/dL AST 26 (14-36) U/L ALT 44 (9-52) U/L Alkaline Phosphatase 52 (38-126) U/L Total Protein 5.4 L (6.3-8.3) g/dL Albumin 2.3 L (3.5-5.0) g/dL Globulin 3.2 (2.2-3.9) gm/dL Albumin/Globulin Ratio 0.7 L (1.0-2.1) Laboratory Results - last 24 hr 01/13/17 01/13/17 06:07 06:07 WBC 21.4 H RBC 2.89 L Hgb 7.7 L Hct 24.1 L MCV 83.4 MCH 26.8 L MCHC 32.1 L RDW 22.4 H Plt Count 204 MPV 8.9 Neut % (Auto) 80.6 H Lymph % (Auto) 7.6 L [place] % (Auto) 8.9 Eos % (Auto) 2.5 Baso % (Auto) 0.4 Neut # 17.2 H Lymph # 1.6 [place] # 1.9 H Eos # 0.5 Baso # 0.1 Neutrophils % (Manual) 78 H Band Neutrophils % 1 Lymphocytes % (Manual) 12 L Monocytes % (Manual) 4 Eosinophils % (Manual) 4 Blast Cells % 1 H Nucleated RBC % 283 H Platelet Estimate Normal Large Platelets Present Giant Platelets Present Polychromasia Slight Hypochromasia (manual) Slight Poikilocytosis (manual Slight Anisocytosis (manual) Slight Macrocytosis (manual) Slight Target Cells Slight Sodium 136 Potassium 3.3 L Chloride 99 Carbon Dioxide 34 H Anion Gap 6 L BUN 7 Creatinine 0.6 L Est GFR ( Amer) > 60 Est GFR (Non-Af Amer) > 60 Random Glucose 86 Calcium 8.2 L Phosphorus 3.4 Magnesium 1.8 Total Bilirubin 0.6 AST 26 ALT 44 Alkaline Phosphatase 52 Total Protein 5.4 L Albumin 2.3 L Globulin 3.2 Albumin/Globulin Ratio 0.7 L Fingerstick Blood Sugar Results: 143 Review of Systems - Review of Systems All systems: reviewed and no additional remarkable complaints except Critical Care Progress Note - Nutrition Nutrition: Nutrition Category Date Time Status Regular Diet [DIET] Diets 01/07/17 Dinner Active Assessment/Plan - Assessment and Plan (Free Text) Assessment: 46-year-old female, PMHx includes Anemia, Arthritis, CVA, Dementia, Depression, Hypertension, Sickle Cell Disease. Presented with pain typical of her sickle cell crisis. Patient was admitted to Tele but became severely tachycardic and hypoxic, not on Lovenox. Thought to be PE but ruled out. Transferred to ICU for further management. Pt stable now, reports significantly less pain and no longer tachycardic or hypoxic. Will be transferred out of ICU and management per primary team. <Jaspreet Jones - Last Filed: 01/13/17 17:24> CCU Subjective - Physician Review Critical Care Time Spent (in minutes): 30 CCU Objective - Vital Signs / Intake & Output Intake and Output (Last 8hrs): Intake & Output 01/13/17 01/13/17 01/13/17 06:59 14:59 22:59 Intake Total 920 0 Output Total 790 150 Balance 130 -150 Intake: Intake, IV Amount 100 0 Left Upper arm 100 0 Oral 820 0 Output: Urine 790 150 2-way Urethral 790 150 Other: # Bowel Movements 0 0 - Medications Active Medications: Active Medications Generic Name Dose Route Start Last Admin Trade Name Freq PRN Reason Stop Dose Admin Acetaminophen 650 mg 01/09/17 20:44 01/09/17 21:02 Tylenol 325mg Tab PO 650 mg Q6 PRN Administration Fever >100.4 F Albuterol/Ipratropium 3 ml 01/11/17 09:33 01/12/17 07:30 Duoneb 3 Mg/0.5 Mg (3 Ml) Ud INH 3 ml RQ6 PRN Administration Wheezing Ascorbic Acid 500 mg 01/08/17 10:00 01/12/17 10:13 Vitamin C 500 Mg Tab PO 500 mg DAILY [facility] Administration Calcium Carbonate 500 mg 01/10/17 22:15 01/12/17 17:48 Tums PO 500 mg BID [facility] Administration Diltiazem HCl 5 mg 01/09/17 10:35 Cardizem IVP Q5M PRN Heart rate Donepezil HCl 10 mg 01/07/17 22:00 01/12/17 22:30 Aricept PO 10 mg HS [facility] Administration Enoxaparin Sodium 40 mg 01/10/17 13:00 01/12/17 10:13 Lovenox SC 40 mg DAILY [facility] Administration Fentanyl 1 patch 01/09/17 16:30 01/12/17 16:34 Duragesic TD 1 patch Q72H [facility] Administration Folic Acid 1 mg 01/08/17 10:00 01/12/17 10:14 Folic Acid PO 1 mg DAILY [facility] Administration Hydromorphone HCl 1 mg 01/13/17 13:52 Dilaudid IVP Q4H PRN Pain, severe (8-10) Hydroxyurea 1,000 mg 01/09/17 11:45 01/12/17 10:13 Hydrea PO 1,000 mg DAILY [facility] Administration Piperacillin Sod/Tazobactam Sod 3.375 gm in 50 mls @ 100 mls/hr 01/09/17 12: 00 01/13/17 06:34 Zosyn 3.375 Gm Iv Premix IVPB 100 mls/hr Q6H [facility] Administration Azithromycin 500 mg/ Sodium 250 mls @ 250 mls/hr 01/11/17 16:00 01/12/17 10: 12 Chloride IVPB 250 mls/hr DAILY [facility] Administration Metoprolol Tartrate 5 mg 01/09/17 19:15 01/13/17 06:34 Lopressor IVP 5 mg Q6H [facility] Administration Morphine Sulfate 60 mg 01/11/17 18:00 01/13/17 06:35 Morphine Extended Release Tab PO 60 mg 0600,1800 [facility] Administration Pantoprazole Sodium 40 mg 01/13/17 10:00 Protonix Ec Tab PO DAILY [facility] Prednisone 5 mg 01/08/17 10:00 01/12/17 10:13 Prednisone Tab PO 5 mg DAILY [facility] Administration Sennosides 8.6 mg 01/07/17 22:00 01/12/17 22:30 Senokot Tab PO 8.6 mg HS [facility] Administration Thiamine HCl 100 mg 01/09/17 10:00 01/12/17 10:13 Vitamin B1 Tab PO 100 mg DAILY [facility] Administration - Patient Studies Lab Studies: Microbiology Studies 01/09/17 00:30 Blood Culture - Preliminary Blood-Thru Central Line NO GROWTH AFTER 4 DAYS 01/09/17 00:00 Blood Culture - Preliminary Blood-Thru Central Line NO GROWTH AFTER 4 DAYS Lab Studies 01/13/17 01/13/17 Range/Units 06:07 06:07 WBC 21.4 H (4.8-10.8) K/uL RBC 2.89 L (3.80-5.20) Mil/uL Hgb 7.7 L (11.0-16.0) g/dL Hct 24.1 L (34.0-47.0) % MCV 83.4 (81.0-99.0) fL MCH 26.8 L (27.0-31.0) pg MCHC 32.1 L (33.0-37.0) g/dL RDW 22.4 H (11.5-14.5) % Plt Count 204 (130-400) K/uL MPV 8.9 (7.2-11.7) fL Neut % (Auto) 80.6 H (50.0-75.0) % Lymph % (Auto) 7.6 L (20.0-40.0) % [place] % (Auto) 8.9 (0.0-10.0) % Eos % (Auto) 2.5 (0.0-4.0) % Baso % (Auto) 0.4 (0.0-2.0) % Neut # 17.2 H (1.8-7.0) K/uL Lymph # 1.6 (1.0-4.3) K/uL [place] # 1.9 H (0.0-0.8) K/uL Eos # 0.5 (0.0-0.7) K/uL Baso # 0.1 (0.0-0.2) K/uL Neutrophils % (Manual) 78 H (50-75) % Band Neutrophils % 1 (0-2) % Lymphocytes % (Manual) 12 L (20-40) % Monocytes % (Manual) 4 (0-10) % Eosinophils % (Manual) 4 (0-4) % Blast Cells % 1 H (0-0) % Nucleated RBC % 283 H (0-0) % Platelet Estimate Normal (NORMAL) Large Platelets Present Giant Platelets Present Polychromasia Slight Hypochromasia (manual) Slight Poikilocytosis (manual Slight Anisocytosis (manual) Slight Macrocytosis (manual) Slight Target Cells Slight Sodium 136 (132-148) mmol/L Potassium 3.3 L (3.6-5.2) mmol/L Chloride 99 (98-107) mmol/L Carbon Dioxide 34 H (22-30) mmol/L Anion Gap 6 L (10-20) BUN 7 (7-17) mg/dL Creatinine 0.6 L (0.7-1.2) MG/DL Est GFR ( Amer) > 60 Est GFR (Non-Af Amer) > 60 Random Glucose 86 (65-105) mg/dL Calcium 8.2 L (8.6-10.4) mg/dl Phosphorus 3.4 (2.5-4.5) mg/dL Magnesium 1.8 (1.6-2.3) mg/dL Total Bilirubin 0.6 (0.2-1.3) mg/dL AST 26 (14-36) U/L ALT 44 (9-52) U/L Alkaline Phosphatase 52 (38-126) U/L Total Protein 5.4 L (6.3-8.3) g/dL Albumin 2.3 L (3.5-5.0) g/dL Globulin 3.2 (2.2-3.9) gm/dL Albumin/Globulin Ratio 0.7 L (1.0-2.1) Laboratory Results - last 24 hr 01/13/17 01/13/17 06:07 06:07 WBC 21.4 H RBC 2.89 L Hgb 7.7 L Hct 24.1 L MCV 83.4 MCH 26.8 L MCHC 32.1 L RDW 22.4 H Plt Count 204 MPV 8.9 Neut % (Auto) 80.6 H Lymph % (Auto) 7.6 L [place] % (Auto) 8.9 Eos % (Auto) 2.5 Baso % (Auto) 0.4 Neut # 17.2 H Lymph # 1.6 [place] # 1.9 H Eos # 0.5 Baso # 0.1 Neutrophils % (Manual) 78 H Band Neutrophils % 1 Lymphocytes % (Manual) 12 L Monocytes % (Manual) 4 Eosinophils % (Manual) 4 Blast Cells % 1 H Nucleated RBC % 283 H Platelet Estimate Normal Large Platelets Present Giant Platelets Present Polychromasia Slight Hypochromasia (manual) Slight Poikilocytosis (manual Slight Anisocytosis (manual) Slight Macrocytosis (manual) Slight Target Cells Slight Sodium 136 Potassium 3.3 L Chloride 99 Carbon Dioxide 34 H Anion Gap 6 L BUN 7 Creatinine 0.6 L Est GFR ( Amer) > 60 Est GFR (Non-Af Amer) > 60 Random Glucose 86 Calcium 8.2 L Phosphorus 3.4 Magnesium 1.8 Total Bilirubin 0.6 AST 26 ALT 44 Alkaline Phosphatase 52 Total Protein 5.4 L Albumin 2.3 L Globulin 3.2 Albumin/Globulin Ratio 0.7 L Critical Care Progress Note - Nutrition Nutrition: Nutrition Category Date Time Status Regular Diet [DIET] Diets 01/07/17 Dinner Active Assessment/Plan (1) Acute chest syndrome due to sickle cell crisis Current Visit: Yes Status: Acute (2) Pneumonia Current Visit: No Status: Acute (3) Sickle cell crisis Current Visit: No Status: Acute Attending/Attestation - Attestation I have personally seen and examined this patient.: Yes I have fully participated in the care of the patient.: Yes I have reviewed all pertinent clinical information: Yes Notes (Text): 01/13/17 17:23 Patient seen and examined in the intensive care unit. Case discussed with house staff in the morning rounds. Stable for transfer to floor Continue antibiotics and follow up CBC Follow-up chest x-ray
--- NOTE | 2017-01-13 16:13 | CP.PCM.PN ---
Subjective - Date & Time of Evaluation Date of Evaluation: 01/13/17 Time of Evaluation: 15:40 - Subjective Subjective: clinically same Objective - Vital Signs/Intake and Output Vital Signs (last 24 hours): Temp Pulse Resp BP Pulse Ox 98.5 F 88 8 L 94/60 L 86 L 01/13/17 00:00 01/13/17 11:09 01/13/17 11:09 01/13/17 11:09 01/13/17 11:09 Intake and Output: 01/13/17 01/13/17 06:59 18:59 Intake Total 1290 0 Output Total 1450 150 Balance -160 -150 - Medications Medications: Current Medications Acetaminophen (Tylenol 325mg Tab) 650 mg PO Q6 PRN PRN Reason: Fever >100.4 F Last Admin: 01/09/17 21:02 Dose: 650 mg Albuterol/Ipratropium (Duoneb 3 Mg/0.5 Mg (3 Ml) Ud) 3 ml INH RQ6 PRN PRN Reason: Wheezing Last Admin: 01/12/17 07:30 Dose: 3 ml Ascorbic Acid (Vitamin C 500 Mg Tab) 500 mg PO DAILY [facility] Last Admin: 01/12/17 10:13 Dose: 500 mg Calcium Carbonate (Tums) 500 mg PO BID [facility] Last Admin: 01/12/17 17:48 Dose: 500 mg Diltiazem HCl (Cardizem) 5 mg IVP Q5M PRN PRN Reason: Heart rate Donepezil HCl (Aricept) 10 mg PO HS [facility] Last Admin: 01/12/17 22:30 Dose: 10 mg Enoxaparin Sodium (Lovenox) 40 mg SC DAILY [facility] Last Admin: 01/12/17 10:13 Dose: 40 mg Fentanyl (Duragesic) 1 patch TD Q72H [facility] Last Admin: 01/12/17 16:34 Dose: 1 patch Folic Acid (Folic Acid) 1 mg PO DAILY [facility] Last Admin: 01/12/17 10:14 Dose: 1 mg Hydromorphone HCl (Dilaudid) 1 mg IVP Q4H PRN PRN Reason: Pain, severe (8-10) Hydroxyurea (Hydrea) 1,000 mg PO DAILY [facility] Last Admin: 01/12/17 10:13 Dose: 1,000 mg Piperacillin Sod/Tazobactam Sod (Zosyn 3.375 Gm Iv Premix) 3.375 gm in 50 mls @ 100 mls/hr IVPB Q6H [facility] Last Admin: 01/13/17 06:34 Dose: 100 mls/hr Azithromycin 500 mg/ Sodium (Chloride) 250 mls @ 250 mls/hr IVPB DAILY [facility] Last Admin: 01/12/17 10:12 Dose: 250 mls/hr Metoprolol Tartrate (Lopressor) 5 mg IVP Q6H [facility] Last Admin: 01/13/17 06:34 Dose: 5 mg Morphine Sulfate (Morphine Extended Release Tab) 60 mg PO 0600,1800 [facility] Last Admin: 01/13/17 06:35 Dose: 60 mg Pantoprazole Sodium (Protonix Ec Tab) 40 mg PO DAILY [facility] Prednisone (Prednisone Tab) 5 mg PO DAILY [facility] Last Admin: 01/12/17 10:13 Dose: 5 mg Sennosides (Senokot Tab) 8.6 mg PO HS [facility] Last Admin: 01/12/17 22:30 Dose: 8.6 mg Thiamine HCl (Vitamin B1 Tab) 100 mg PO DAILY [facility] Last Admin: 01/12/17 10:13 Dose: 100 mg - Labs Labs: 01/13/17 06:07 01/13/17 06:07 PT 13.0 SECONDS (9.7-12.2) H 01/07/17 09:12 INR 1.1 01/07/17 09:12 APTT 49 SECONDS (21-34) H D 01/09/17 18:29 - Constitutional Appears: Well - Head Exam Head Exam: ATRAUMATIC, NORMAL INSPECTION, NORMOCEPHALIC - Eye Exam Eye Exam: EOMI, Normal appearance, PERRL Pupil Exam: NORMAL ACCOMODATION, PERRL - ENT Exam ENT Exam: Mucous Membranes Moist, Normal Exam - Neck Exam Neck Exam: Full ROM, Normal Inspection. absent: Lymphadenopathy - Respiratory Exam Respiratory Exam: Decreased Breath Sounds - Cardiovascular Exam Cardiovascular Exam: REGULAR RHYTHM, +S1, +S2 - GI/Abdominal Exam GI & Abdominal Exam: Soft, Diminished Bowel Sounds - Rectal Exam Rectal Exam: Deferred Assessment and Plan - Assessment and Plan (Free Text) Plan: f/u with systems engineering manager f/u with ID f/u with Transformer Maker f/u with cbc and cxr iv pain meds iv antibiotics Oxygen folic acid
--- NOTE | 2017-01-13 17:08 | CP.PCM.PN ---
Subjective - Date & Time of Evaluation Date of Evaluation: 01/13/17 Time of Evaluation: 17:05 - Subjective Subjective: Feeling better but pain in legs Objective - Vital Signs/Intake and Output Vital Signs (last 24 hours): Temp Pulse Resp BP Pulse Ox 98.5 F 88 8 L 94/60 L 86 L 01/13/17 00:00 01/13/17 11:09 01/13/17 11:09 01/13/17 11:09 01/13/17 11:09 Intake and Output: 01/13/17 01/13/17 06:59 18:59 Intake Total 1290 0 Output Total 1450 150 Balance -160 -150 - Medications Medications: Current Medications Acetaminophen (Tylenol 325mg Tab) 650 mg PO Q6 PRN PRN Reason: Fever >100.4 F Last Admin: 01/09/17 21:02 Dose: 650 mg Albuterol/Ipratropium (Duoneb 3 Mg/0.5 Mg (3 Ml) Ud) 3 ml INH RQ6 PRN PRN Reason: Wheezing Last Admin: 01/12/17 07:30 Dose: 3 ml Ascorbic Acid (Vitamin C 500 Mg Tab) 500 mg PO DAILY [facility] Last Admin: 01/12/17 10:13 Dose: 500 mg Calcium Carbonate (Tums) 500 mg PO BID [facility] Last Admin: 01/12/17 17:48 Dose: 500 mg Diltiazem HCl (Cardizem) 5 mg IVP Q5M PRN PRN Reason: Heart rate Donepezil HCl (Aricept) 10 mg PO HS [facility] Last Admin: 01/12/17 22:30 Dose: 10 mg Enoxaparin Sodium (Lovenox) 40 mg SC DAILY [facility] Last Admin: 01/12/17 10:13 Dose: 40 mg Fentanyl (Duragesic) 1 patch TD Q72H [facility] Last Admin: 01/12/17 16:34 Dose: 1 patch Folic Acid (Folic Acid) 1 mg PO DAILY [facility] Last Admin: 01/12/17 10:14 Dose: 1 mg Hydromorphone HCl (Dilaudid) 1 mg IVP Q4H PRN PRN Reason: Pain, severe (8-10) Hydroxyurea (Hydrea) 1,000 mg PO DAILY [facility] Last Admin: 01/12/17 10:13 Dose: 1,000 mg Piperacillin Sod/Tazobactam Sod (Zosyn 3.375 Gm Iv Premix) 3.375 gm in 50 mls @ 100 mls/hr IVPB Q6H [facility] Last Admin: 01/13/17 06:34 Dose: 100 mls/hr Azithromycin 500 mg/ Sodium (Chloride) 250 mls @ 250 mls/hr IVPB DAILY [facility] Last Admin: 01/12/17 10:12 Dose: 250 mls/hr Metoprolol Tartrate (Lopressor) 5 mg IVP Q6H [facility] Last Admin: 01/13/17 06:34 Dose: 5 mg Morphine Sulfate (Morphine Extended Release Tab) 60 mg PO 0600,1800 [facility] Last Admin: 01/13/17 06:35 Dose: 60 mg Pantoprazole Sodium (Protonix Ec Tab) 40 mg PO DAILY [facility] Prednisone (Prednisone Tab) 5 mg PO DAILY [facility] Last Admin: 01/12/17 10:13 Dose: 5 mg Sennosides (Senokot Tab) 8.6 mg PO HS [facility] Last Admin: 01/12/17 22:30 Dose: 8.6 mg Thiamine HCl (Vitamin B1 Tab) 100 mg PO DAILY [facility] Last Admin: 01/12/17 10:13 Dose: 100 mg - Labs Labs: 01/13/17 06:07 01/13/17 06:07 PT 13.0 SECONDS (9.7-12.2) H 01/07/17 09:12 INR 1.1 01/07/17 09:12 APTT 49 SECONDS (21-34) H D 01/09/17 18:29 - Head Exam Head Exam: ATRAUMATIC - Eye Exam Eye Exam: Normal appearance - ENT Exam ENT Exam: Mucous Membranes Dry - Respiratory Exam Respiratory Exam: NORMAL BREATHING PATTERN - Cardiovascular Exam Cardiovascular Exam: +S1, +S2 - GI/Abdominal Exam GI & Abdominal Exam: Normal Bowel Sounds Assessment and Plan (1) Acute chest syndrome due to sickle cell crisis Assessment & Plan: resolving s/p red cell exchange Status: Acute (2) Sickle cell pain crisis Assessment & Plan: IV fluids, pain meds, folic acid, 02 via NC s/p red cell exchange Status: Acute (3) Leukocytosis Assessment & Plan: on antibiotics may have reactive component to sickle cell Status: Acute
[2017-01-14] MEDS: HYDROmorphone 1 mg/ml ISec IVP PRN ×3 (00:09→16:19)
[2017-01-14] MEDS: Piperacill/Tazo 3.375gm in Dex 3.375 GM/50 ML BAG IVPB SCH ×3 (00:14→12:58)
[2017-01-14] MEDS: Metoprolol 1 mg/ml Inj IVP SCH ×4 (00:20→18:20)
[2017-01-14] MEDS: Morphine 30 mg SR Tab PO SCH ×2 (05:38→18:20)
[2017-01-14] MEDS: Azithromycin 500 MG in Sodium Chloride 0.9% 250 ML IVPB SCH (09:13)
[2017-01-14] MEDS: Enoxaparin 40 mg Syringe SC SCH (09:14)
[2017-01-14] MEDS: Pantoprazole 40 mg EC Tab PO SCH (09:14)
[2017-01-14] MEDS: Calcium Carbonate 500 mg Chewable Antacid Tab PO SCH ×2 (09:15→18:20)
--- NOTE | 2017-01-14 11:18 | CP.PCM.PN ---
Subjective - Date & Time of Evaluation Date of Evaluation: 01/14/17 Time of Evaluation: 11:10 - Subjective Subjective: Pain in legs improving Objective - Vital Signs/Intake and Output Vital Signs (last 24 hours): Temp Pulse Resp BP Pulse Ox 98.2 F 90 10 L 84/60 L 100 01/14/17 08:00 01/14/17 08:09 01/14/17 08:09 01/14/17 08:09 01/14/17 08:09 Intake and Output: 01/14/17 01/14/17 06:59 18:59 Intake Total 500 Output Total 1000 Balance -500 - Medications Medications: Current Medications Acetaminophen (Tylenol 325mg Tab) 650 mg PO Q6 PRN PRN Reason: Fever >100.4 F Last Admin: 01/09/17 21:02 Dose: 650 mg Albuterol/Ipratropium (Duoneb 3 Mg/0.5 Mg (3 Ml) Ud) 3 ml INH RQ6 PRN PRN Reason: Wheezing Last Admin: 01/12/17 07:30 Dose: 3 ml Ascorbic Acid (Vitamin C 500 Mg Tab) 500 mg PO DAILY [facility] Last Admin: 01/14/17 09:14 Dose: 500 mg Calcium Carbonate (Tums) 500 mg PO BID [facility] Last Admin: 01/14/17 09:15 Dose: 500 mg Diltiazem HCl (Cardizem) 5 mg IVP Q5M PRN PRN Reason: Heart rate Donepezil HCl (Aricept) 10 mg PO HS [facility] Last Admin: 01/14/17 00:09 Dose: 10 mg Enoxaparin Sodium (Lovenox) 40 mg SC DAILY [facility] Last Admin: 01/14/17 09:14 Dose: 40 mg Fentanyl (Duragesic) 1 patch TD Q72H [facility] Last Admin: 01/12/17 16:34 Dose: 1 patch Folic Acid (Folic Acid) 1 mg PO DAILY [facility] Last Admin: 01/14/17 09:14 Dose: 1 mg Hydromorphone HCl (Dilaudid) 1 mg IVP Q4H PRN PRN Reason: Pain, severe (8-10) Last Admin: 01/14/17 05:40 Dose: 1 mg Hydroxyurea (Hydrea) 1,000 mg PO DAILY [facility] Last Admin: 01/14/17 09:15 Dose: 1,000 mg Piperacillin Sod/Tazobactam Sod (Zosyn 3.375 Gm Iv Premix) 3.375 gm in 50 mls @ 100 mls/hr IVPB Q6H [facility] Last Admin: 01/14/17 05:39 Dose: 100 mls/hr Azithromycin 500 mg/ Sodium (Chloride) 250 mls @ 250 mls/hr IVPB DAILY [facility] Last Admin: 01/14/17 09:13 Dose: 250 mls/hr Metoprolol Tartrate (Lopressor) 5 mg IVP Q6H [facility] Last Admin: 01/14/17 07:43 Dose: Not Given Morphine Sulfate (Morphine Extended Release Tab) 60 mg PO 0600,1800 [facility] Last Admin: 01/14/17 05:38 Dose: 60 mg Pantoprazole Sodium (Protonix Ec Tab) 40 mg PO DAILY [facility] Last Admin: 01/14/17 09:14 Dose: 40 mg Prednisone (Prednisone Tab) 5 mg PO DAILY [facility] Last Admin: 01/14/17 09:14 Dose: 5 mg Sennosides (Senokot Tab) 8.6 mg PO HS [facility] Last Admin: 01/14/17 00:09 Dose: 8.6 mg Thiamine HCl (Vitamin B1 Tab) 100 mg PO DAILY [facility] Last Admin: 01/14/17 09:14 Dose: 100 mg - Labs Labs: 01/13/17 06:07 01/13/17 06:07 PT 13.0 SECONDS (9.7-12.2) H 01/07/17 09:12 INR 1.1 01/07/17 09:12 APTT 49 SECONDS (21-34) H D 01/09/17 18:29 - Head Exam Head Exam: ATRAUMATIC - Eye Exam Eye Exam: Normal appearance - ENT Exam ENT Exam: Mucous Membranes Dry - Respiratory Exam Respiratory Exam: NORMAL BREATHING PATTERN - Cardiovascular Exam Cardiovascular Exam: +S1, +S2 - GI/Abdominal Exam GI & Abdominal Exam: Normal Bowel Sounds Assessment and Plan (1) Acute chest syndrome due to sickle cell crisis Assessment & Plan: resolved s/p red cell exchange Status: Acute (2) Sickle cell pain crisis Assessment & Plan: IV fluids, pain meds, folic acid, 02 via NC s/p red cell exchange Status: Acute (3) Leukocytosis Assessment & Plan: on antibiotics may have reactive component due to sickle cell disease Status: Acute
--- NOTE | 2017-01-14 16:11 | CP.PCM.PN ---
Subjective - Date & Time of Evaluation Date of Evaluation: 01/14/17 Time of Evaluation: 10:00 - Subjective Subjective: STILL WITH PAIN IN LEGS' CULTURES NEG WILL DEESCALATE ANTIBIOTIC RX Objective - Vital Signs/Intake and Output Vital Signs (last 24 hours): Temp Pulse Resp BP Pulse Ox 98.1 F 117 H 15 93/61 L 100 01/14/17 12:00 01/14/17 13:00 01/14/17 13:00 01/14/17 12:09 01/14/17 12:09 Intake and Output: 01/14/17 01/14/17 06:59 18:59 Intake Total 500 1070 Output Total 1000 Balance -500 1070 - Medications Medications: Current Medications Acetaminophen (Tylenol 325mg Tab) 650 mg PO Q6 PRN PRN Reason: Fever >100.4 F Last Admin: 01/09/17 21:02 Dose: 650 mg Albuterol/Ipratropium (Duoneb 3 Mg/0.5 Mg (3 Ml) Ud) 3 ml INH RQ6 PRN PRN Reason: Wheezing Last Admin: 01/12/17 07:30 Dose: 3 ml Ascorbic Acid (Vitamin C 500 Mg Tab) 500 mg PO DAILY [facility] Last Admin: 01/14/17 09:14 Dose: 500 mg Calcium Carbonate (Tums) 500 mg PO BID [facility] Last Admin: 01/14/17 09:15 Dose: 500 mg Diltiazem HCl (Cardizem) 5 mg IVP Q5M PRN PRN Reason: Heart rate Donepezil HCl (Aricept) 10 mg PO HS [facility] Last Admin: 01/14/17 00:09 Dose: 10 mg Enoxaparin Sodium (Lovenox) 40 mg SC DAILY [facility] Last Admin: 01/14/17 09:14 Dose: 40 mg Fentanyl (Duragesic) 1 patch TD Q72H [facility] Last Admin: 01/12/17 16:34 Dose: 1 patch Folic Acid (Folic Acid) 1 mg PO DAILY [facility] Last Admin: 01/14/17 09:14 Dose: 1 mg Hydromorphone HCl (Dilaudid) 1 mg IVP Q4H PRN PRN Reason: Pain, severe (8-10) Last Admin: 01/14/17 05:40 Dose: 1 mg Hydroxyurea (Hydrea) 1,000 mg PO DAILY [facility] Last Admin: 01/14/17 09:15 Dose: 1,000 mg Piperacillin Sod/Tazobactam Sod (Zosyn 3.375 Gm Iv Premix) 3.375 gm in 50 mls @ 100 mls/hr IVPB Q6H [facility] Last Admin: 01/14/17 12:58 Dose: 100 mls/hr Azithromycin 500 mg/ Sodium (Chloride) 250 mls @ 250 mls/hr IVPB DAILY [facility] Last Admin: 01/14/17 09:13 Dose: 250 mls/hr Metoprolol Tartrate (Lopressor) 5 mg IVP Q6H [facility] Last Admin: 01/14/17 13:00 Dose: 5 mg Morphine Sulfate (Morphine Extended Release Tab) 60 mg PO 0600,1800 [facility] Last Admin: 01/14/17 05:38 Dose: 60 mg Pantoprazole Sodium (Protonix Ec Tab) 40 mg PO DAILY [facility] Last Admin: 01/14/17 09:14 Dose: 40 mg Prednisone (Prednisone Tab) 5 mg PO DAILY [facility] Last Admin: 01/14/17 09:14 Dose: 5 mg Sennosides (Senokot Tab) 8.6 mg PO HS [facility] Last Admin: 01/14/17 00:09 Dose: 8.6 mg Thiamine HCl (Vitamin B1 Tab) 100 mg PO DAILY [facility] Last Admin: 01/14/17 09:14 Dose: 100 mg - Labs Labs: 01/13/17 06:07 01/13/17 06:07 PT 13.0 SECONDS (9.7-12.2) H 01/07/17 09:12 INR 1.1 01/07/17 09:12 APTT 49 SECONDS (21-34) H D 01/09/17 18:29 Assessment and Plan (1) Acute chest syndrome due to sickle cell crisis Status: Acute (2) Sickle cell disease Status: Acute (3) Hip pain Status: Acute (4) Leukocytosis Status: Acute (5) Pneumonia Status: Acute (6) Sickle cell crisis Status: Acute
--- NOTE | 2017-01-14 18:16 | CP.PCM.PN ---
Subjective - Date & Time of Evaluation Date of Evaluation: 01/14/17 Time of Evaluation: 14:00 - Subjective Subjective: clinically same Objective - Vital Signs/Intake and Output Vital Signs (last 24 hours): Temp Pulse Resp BP Pulse Ox 97 F L 117 H 15 93/61 L 100 01/14/17 16:00 01/14/17 13:00 01/14/17 13:00 01/14/17 12:09 01/14/17 12:09 Intake and Output: 01/14/17 01/14/17 06:59 18:59 Intake Total 500 1080 Output Total 1000 Balance -500 1080 - Medications Medications: Current Medications Acetaminophen (Tylenol 325mg Tab) 650 mg PO Q6 PRN PRN Reason: Fever >100.4 F Last Admin: 01/09/17 21:02 Dose: 650 mg Albuterol/Ipratropium (Duoneb 3 Mg/0.5 Mg (3 Ml) Ud) 3 ml INH RQ6 PRN PRN Reason: Wheezing Last Admin: 01/12/17 07:30 Dose: 3 ml Ascorbic Acid (Vitamin C 500 Mg Tab) 500 mg PO DAILY [facility] Last Admin: 01/14/17 09:14 Dose: 500 mg Calcium Carbonate (Tums) 500 mg PO BID [facility] Last Admin: 01/14/17 09:15 Dose: 500 mg Diltiazem HCl (Cardizem) 5 mg IVP Q5M PRN PRN Reason: Heart rate Donepezil HCl (Aricept) 10 mg PO HS [facility] Last Admin: 01/14/17 00:09 Dose: 10 mg Enoxaparin Sodium (Lovenox) 40 mg SC DAILY [facility] Last Admin: 01/14/17 09:14 Dose: 40 mg Fentanyl (Duragesic) 1 patch TD Q72H [facility] Last Admin: 01/12/17 16:34 Dose: 1 patch Folic Acid (Folic Acid) 1 mg PO DAILY [facility] Last Admin: 01/14/17 09:14 Dose: 1 mg Hydromorphone HCl (Dilaudid) 1 mg IVP Q4H PRN PRN Reason: Pain, severe (8-10) Last Admin: 01/14/17 16:19 Dose: 1 mg Hydroxyurea (Hydrea) 1,000 mg PO DAILY [facility] Last Admin: 01/14/17 09:15 Dose: 1,000 mg Ceftriaxone Sodium 2 gm/ (Sodium Chloride) 100 mls @ 100 mls/hr IVPB Q24H [facility] Metoprolol Tartrate (Lopressor) 5 mg IVP Q6H [facility] Last Admin: 01/14/17 13:00 Dose: 5 mg Morphine Sulfate (Morphine Extended Release Tab) 60 mg PO 0600,1800 [facility] Last Admin: 01/14/17 05:38 Dose: 60 mg Pantoprazole Sodium (Protonix Ec Tab) 40 mg PO DAILY [facility] Last Admin: 01/14/17 09:14 Dose: 40 mg Prednisone (Prednisone Tab) 5 mg PO DAILY [facility] Last Admin: 01/14/17 09:14 Dose: 5 mg Sennosides (Senokot Tab) 8.6 mg PO HS [facility] Last Admin: 01/14/17 00:09 Dose: 8.6 mg Thiamine HCl (Vitamin B1 Tab) 100 mg PO DAILY [facility] Last Admin: 01/14/17 09:14 Dose: 100 mg - Labs Labs: 01/13/17 06:07 01/13/17 06:07 PT 13.0 SECONDS (9.7-12.2) H 01/07/17 09:12 INR 1.1 01/07/17 09:12 APTT 49 SECONDS (21-34) H D 01/09/17 18:29 - Constitutional Appears: Well - Head Exam Head Exam: ATRAUMATIC, NORMAL INSPECTION, NORMOCEPHALIC - Eye Exam Eye Exam: EOMI, Normal appearance, PERRL Pupil Exam: NORMAL ACCOMODATION, PERRL - ENT Exam ENT Exam: Mucous Membranes Moist, Normal Exam - Neck Exam Neck Exam: Full ROM, Normal Inspection. absent: Lymphadenopathy - Respiratory Exam Respiratory Exam: Decreased Breath Sounds - Cardiovascular Exam Cardiovascular Exam: REGULAR RHYTHM, +S1, +S2 - GI/Abdominal Exam GI & Abdominal Exam: Soft, Diminished Bowel Sounds - Rectal Exam Rectal Exam: Deferred Assessment and Plan - Assessment and Plan (Free Text) Plan: f/u with picture frame maker f/u with ID f/u with feather stitcher culture is negative iv pain meds iv antibiotics Oxygen folic acid
[2017-01-14] MEDS: cefTRIAXone 2 GM in Sodium Chloride 0.9% 100 ML IVPB SCH (18:19)
[2017-01-15] MEDS: Metoprolol 1 mg/ml Inj IVP SCH ×3 (02:00→19:15)
[2017-01-15] MEDS: Morphine 30 mg SR Tab PO SCH ×2 (06:15→17:26)
[2017-01-15 08:34] VITALS: RESP 20
--- NOTE | 2017-01-15 09:08 | CP.PCM.PN ---
Subjective - Date & Time of Evaluation Date of Evaluation: 01/15/17 Time of Evaluation: 09:00 - Subjective Subjective: clinically same Objective - Vital Signs/Intake and Output Vital Signs (last 24 hours): Temp Pulse Resp BP Pulse Ox 98 F 108 H 20 107/68 96 01/15/17 08:32 01/15/17 08:32 01/15/17 08:32 01/15/17 08:32 01/15/17 08:32 - Medications Medications: Current Medications Acetaminophen (Tylenol 325mg Tab) 650 mg PO Q6 PRN PRN Reason: Fever >100.4 F Last Admin: 01/09/17 21:02 Dose: 650 mg Albuterol/Ipratropium (Duoneb 3 Mg/0.5 Mg (3 Ml) Ud) 3 ml INH RQ6 PRN PRN Reason: Wheezing Last Admin: 01/12/17 07:30 Dose: 3 ml Ascorbic Acid (Vitamin C 500 Mg Tab) 500 mg PO DAILY [facility] Last Admin: 01/14/17 09:14 Dose: 500 mg Calcium Carbonate (Tums) 500 mg PO BID [facility] Last Admin: 01/14/17 18:20 Dose: 500 mg Diltiazem HCl (Cardizem) 5 mg IVP Q5M PRN PRN Reason: Heart rate Donepezil HCl (Aricept) 10 mg PO HS [facility] Last Admin: 01/14/17 21:36 Dose: 10 mg Enoxaparin Sodium (Lovenox) 40 mg SC DAILY [facility] Last Admin: 01/14/17 09:14 Dose: 40 mg Fentanyl (Duragesic) 1 patch TD Q72H [facility] Last Admin: 01/12/17 16:34 Dose: 1 patch Folic Acid (Folic Acid) 1 mg PO DAILY [facility] Last Admin: 01/14/17 09:14 Dose: 1 mg Hydromorphone HCl (Dilaudid) 1 mg IVP Q4H PRN PRN Reason: Pain, severe (8-10) Last Admin: 01/14/17 16:19 Dose: 1 mg Hydroxyurea (Hydrea) 1,000 mg PO DAILY [facility] Last Admin: 01/14/17 09:15 Dose: 1,000 mg Ceftriaxone Sodium 2 gm/ (Sodium Chloride) 100 mls @ 100 mls/hr IVPB Q24H [facility] Last Admin: 05/10/17 18:19 Dose: 100 mls/hr Metoprolol Tartrate (Lopressor) 5 mg IVP Q6H [facility] Last Admin: 01/15/17 02:00 Dose: 5 mg Morphine Sulfate (Morphine Extended Release Tab) 60 mg PO 0600,1800 [facility] Last Admin: 01/15/17 06:15 Dose: 60 mg Pantoprazole Sodium (Protonix Ec Tab) 40 mg PO DAILY [facility] Last Admin: 01/14/17 09:14 Dose: 40 mg Prednisone (Prednisone Tab) 5 mg PO DAILY [facility] Last Admin: 01/14/17 09:14 Dose: 5 mg Sennosides (Senokot Tab) 8.6 mg PO HS [facility] Last Admin: 01/14/17 21:36 Dose: 8.6 mg Thiamine HCl (Vitamin B1 Tab) 100 mg PO DAILY [facility] Last Admin: 01/14/17 09:14 Dose: 100 mg - Labs Labs: 01/13/17 06:07 01/13/17 06:07 PT 13.0 SECONDS (9.7-12.2) H 01/07/17 09:12 INR 1.1 01/07/17 09:12 APTT 49 SECONDS (21-34) H D 01/09/17 18:29 - Constitutional Appears: Well - Head Exam Head Exam: ATRAUMATIC, NORMAL INSPECTION, NORMOCEPHALIC - Eye Exam Eye Exam: EOMI, Normal appearance, PERRL Pupil Exam: NORMAL ACCOMODATION, PERRL - ENT Exam ENT Exam: Mucous Membranes Moist, Normal Exam - Neck Exam Neck Exam: Full ROM, Normal Inspection. absent: Lymphadenopathy - Respiratory Exam Respiratory Exam: Decreased Breath Sounds - Cardiovascular Exam Cardiovascular Exam: REGULAR RHYTHM, +S1, +S2 - GI/Abdominal Exam GI & Abdominal Exam: Soft, Diminished Bowel Sounds - Rectal Exam Rectal Exam: Deferred Assessment and Plan - Assessment and Plan (Free Text) Plan: [facility] blood and urine cx is negative rosy. Augmentin for 7 days
[2017-01-15] MEDS: Pantoprazole 40 mg EC Tab PO SCH (10:17)
[2017-01-15] MEDS: Enoxaparin 40 mg Syringe SC SCH (10:18)
--- NOTE | 2017-01-15 13:12 | CP.PCM.PN ---
Subjective - Date & Time of Evaluation Date of Evaluation: 01/15/17 Time of Evaluation: 09:50 - Subjective Subjective: Medicine Note- Dr. Daugherty's service Patient was seen and examined at bedside. Patient reports no acute complaints at this time, except for left knee pain. She reports when she came in, she had diffuse body/joint pain but it has improved significantly since she first arrived. Objective - Vital Signs/Intake and Output Vital Signs (last 24 hours): Temp Pulse Resp BP Pulse Ox 98 F 108 H 20 107/68 96 01/15/17 08:32 01/15/17 08:32 01/15/17 08:32 01/15/17 08:32 01/15/17 08:32 - Medications Medications: Current Medications Acetaminophen (Tylenol 325mg Tab) 650 mg PO Q6 PRN PRN Reason: Fever >100.4 F Last Admin: 01/09/17 21:02 Dose: 650 mg Albuterol/Ipratropium (Duoneb 3 Mg/0.5 Mg (3 Ml) Ud) 3 ml INH RQ6 PRN PRN Reason: Wheezing Last Admin: 01/12/17 07:30 Dose: 3 ml Ascorbic Acid (Vitamin C 500 Mg Tab) 500 mg PO DAILY [facility] Last Admin: 01/15/17 10:17 Dose: 500 mg Calcium Carbonate (Tums) 500 mg PO BID [facility] Last Admin: 01/14/17 18:20 Dose: 500 mg Diltiazem HCl (Cardizem) 5 mg IVP Q5M PRN PRN Reason: Heart rate Donepezil HCl (Aricept) 10 mg PO HS [facility] Last Admin: 01/14/17 21:36 Dose: 10 mg Enoxaparin Sodium (Lovenox) 40 mg SC DAILY [facility] Last Admin: 01/15/17 10:18 Dose: 40 mg Fentanyl (Duragesic) 1 patch TD Q72H [facility] Last Admin: 01/12/17 16:34 Dose: 1 patch Folic Acid (Folic Acid) 1 mg PO DAILY [facility] Last Admin: 01/15/17 10:17 Dose: 1 mg Hydromorphone HCl (Dilaudid) 1 mg IVP Q4H PRN PRN Reason: Pain, severe (8-10) Last Admin: 01/14/17 16:19 Dose: 1 mg Hydroxyurea (Hydrea) 1,000 mg PO DAILY [facility] Last Admin: 01/15/17 10:17 Dose: 1,000 mg Ceftriaxone Sodium 2 gm/ (Sodium Chloride) 100 mls @ 100 mls/hr IVPB Q24H [facility] Last Admin: 01/14/17 18:19 Dose: 100 mls/hr Metoprolol Tartrate (Lopressor) 5 mg IVP Q6H [facility] Last Admin: 01/15/17 10:18 Dose: Not Given Morphine Sulfate (Morphine Extended Release Tab) 60 mg PO 0600,1800 [facility] Last Admin: 01/15/17 06:15 Dose: 60 mg Pantoprazole Sodium (Protonix Ec Tab) 40 mg PO DAILY [facility] Last Admin: 01/15/17 10:17 Dose: 40 mg Prednisone (Prednisone Tab) 5 mg PO DAILY [facility] Last Admin: 01/14/17 09:14 Dose: 5 mg Sennosides (Senokot Tab) 8.6 mg PO HS [facility] Last Admin: 01/14/17 21:36 Dose: 8.6 mg Thiamine HCl (Vitamin B1 Tab) 100 mg PO DAILY [facility] Last Admin: 01/15/17 10:17 Dose: 100 mg - Labs Labs: 01/13/17 06:07 01/13/17 06:07 PT 13.0 SECONDS (9.7-12.2) H 01/07/17 09:12 INR 1.1 01/07/17 09:12 APTT 49 SECONDS (21-34) H D 01/09/17 18:29 - Constitutional Appears: Non-toxic, No Acute Distress - Head Exam Head Exam: ATRAUMATIC, NORMAL INSPECTION, NORMOCEPHALIC - Eye Exam Pupil Exam: NORMAL ACCOMODATION, PERRL - ENT Exam ENT Exam: Mucous Membranes Moist - Respiratory Exam Respiratory Exam: Clear to Ausculation Bilateral, NORMAL BREATHING PATTERN. absent: Prolonged Expiratory Phase, Rales, Rhonchi, Wheezes - Cardiovascular Exam Cardiovascular Exam: REGULAR RHYTHM, +S1, +S2 - GI/Abdominal Exam GI & Abdominal Exam: Soft, Normal Bowel Sounds. absent: Tenderness, Diminished Bowel Sounds, Hernia, Hyperactive Bowel Sounds, Hypoactive Bowel Sounds - Extremities Exam Extremities Exam: Normal Capillary Refill, Normal Inspection - Neurological Exam Neurological Exam: Alert, Awake, Oriented x3 - Psychiatric Exam Psychiatric exam: Normal Affect, Normal Mood - Skin Skin Exam: Dry, Intact, Normal Color, Warm Assessment and Plan - Assessment and Plan (Free Text) Assessment: Acute chest syndrome due to Sickle Cell Crisis consult- heme onc- Dr. Shepherd consult cardio- per Dr. Murdock, no acute cardiac issues. ECHO directly viewed by Dr. Nolasco: hyperdynamic LV function, Normal RV size, mod-sev pulm HTN, Mod TR, mild MR S/p red cell exchange VQ scan 01/09/17- low probability for PE Chest CT- 01/11/17- Bilateral primarily lower lobe infiltrates Leukocytosis Blood cultures, urine cultures, MRSA screen- negative WBC 21.4 Consult ID- Dr. Dobbins Currently on Ceftriaxone 2gm Q24h started on 01/14/17- per Dr. dobbins, de- escalating antibiotics Per Dr. Shepherd, may have reactive component to sickle cell Discussed case with Dr. Dobbins, patient may return to longterm with Augmentin 875/125mg PO Q12h for 7 days and have repeat CXR on Thursday01/19/17. Patient is to be discharged back to longterm as per Dr. Daugherty.
--- NOTE | 2017-01-15 13:25 | CP.PCM.PN ---
Subjective - Date & Time of Evaluation Date of Evaluation: 01/15/17 Time of Evaluation: 12:40 - Subjective Subjective: Feeling better, pain in legs Objective - Vital Signs/Intake and Output Vital Signs (last 24 hours): Temp Pulse Resp BP Pulse Ox 98 F 108 H 20 107/68 96 01/15/17 08:32 01/15/17 08:32 01/15/17 08:32 01/15/17 08:32 01/15/17 08:32 - Medications Medications: Current Medications Acetaminophen (Tylenol 325mg Tab) 650 mg PO Q6 PRN PRN Reason: Fever >100.4 F Last Admin: 01/09/17 21:02 Dose: 650 mg Albuterol/Ipratropium (Duoneb 3 Mg/0.5 Mg (3 Ml) Ud) 3 ml INH RQ6 PRN PRN Reason: Wheezing Last Admin: 01/12/17 07:30 Dose: 3 ml Ascorbic Acid (Vitamin C 500 Mg Tab) 500 mg PO DAILY [facility] Last Admin: 01/15/17 10:17 Dose: 500 mg Calcium Carbonate (Tums) 500 mg PO BID [facility] Last Admin: 01/14/17 18:20 Dose: 500 mg Diltiazem HCl (Cardizem) 5 mg IVP Q5M PRN PRN Reason: Heart rate Donepezil HCl (Aricept) 10 mg PO HS [facility] Last Admin: 01/14/17 21:36 Dose: 10 mg Enoxaparin Sodium (Lovenox) 40 mg SC DAILY [facility] Last Admin: 01/15/17 10:18 Dose: 40 mg Fentanyl (Duragesic) 1 patch TD Q72H [facility] Last Admin: 01/12/17 16:34 Dose: 1 patch Folic Acid (Folic Acid) 1 mg PO DAILY [facility] Last Admin: 01/15/17 10:17 Dose: 1 mg Hydromorphone HCl (Dilaudid) 1 mg IVP Q4H PRN PRN Reason: Pain, severe (8-10) Last Admin: 01/14/17 16:19 Dose: 1 mg Hydroxyurea (Hydrea) 1,000 mg PO DAILY [facility] Last Admin: 01/15/17 10:17 Dose: 1,000 mg Ceftriaxone Sodium 2 gm/ (Sodium Chloride) 100 mls @ 100 mls/hr IVPB Q24H [facility] Last Admin: 01/14/17 18:19 Dose: 100 mls/hr Metoprolol Tartrate (Lopressor) 5 mg IVP Q6H [facility] Last Admin: 01/15/17 10:18 Dose: Not Given Morphine Sulfate (Morphine Extended Release Tab) 60 mg PO 0600,1800 [facility] Last Admin: 01/15/17 06:15 Dose: 60 mg Pantoprazole Sodium (Protonix Ec Tab) 40 mg PO DAILY [facility] Last Admin: 01/15/17 10:17 Dose: 40 mg Prednisone (Prednisone Tab) 5 mg PO DAILY [facility] Last Admin: 01/14/17 09:14 Dose: 5 mg Sennosides (Senokot Tab) 8.6 mg PO HS [facility] Last Admin: 01/14/17 21:36 Dose: 8.6 mg Thiamine HCl (Vitamin B1 Tab) 100 mg PO DAILY [facility] Last Admin: 01/15/17 10:17 Dose: 100 mg - Labs Labs: 01/13/17 06:07 01/13/17 06:07 PT 13.0 SECONDS (9.7-12.2) H 01/07/17 09:12 INR 1.1 01/07/17 09:12 APTT 49 SECONDS (21-34) H D 01/09/17 18:29 - Head Exam Head Exam: ATRAUMATIC - Eye Exam Eye Exam: Normal appearance - ENT Exam ENT Exam: Mucous Membranes Dry - Respiratory Exam Respiratory Exam: NORMAL BREATHING PATTERN - Cardiovascular Exam Cardiovascular Exam: +S1, +S2 - GI/Abdominal Exam GI & Abdominal Exam: Normal Bowel Sounds Assessment and Plan (1) Sickle cell pain crisis Assessment & Plan: IV fluids, pain meds, folic acid, 02 via NC s/p red cell exchange Status: Acute (2) Leukocytosis Assessment & Plan: on antibiotics Status: Acute (3) Acute chest syndrome due to sickle cell crisis Assessment & Plan: Resolved Status: Acute
[2017-01-15] MEDS: HYDROmorphone 1 mg/ml ISec IVP PRN ×2 (13:53→21:42)
[2017-01-15 16:21] VITALS: BP 99/66; O2SAT 100
[2017-01-15] MEDS: cefTRIAXone 2 GM in Sodium Chloride 0.9% 100 ML IVPB SCH (16:59)
[2017-01-15] MEDS: Calcium Carbonate 500 mg Chewable Antacid Tab PO SCH (17:36)
--- NOTE | 2017-01-15 18:02 | CP.PCM.PN ---
Subjective - Date & Time of Evaluation Date of Evaluation: 01/15/17 Time of Evaluation: 10:00 - Subjective Subjective: discussed on rounds dr Shepherd following IV rx in progress Objective - Vital Signs/Intake and Output Vital Signs (last 24 hours): Temp Pulse Resp BP Pulse Ox 98.1 F 102 H 20 99/66 L 100 01/15/17 16:00 01/15/17 16:00 01/15/17 16:00 01/15/17 16:00 01/15/17 16:00 - Medications Medications: Current Medications Acetaminophen (Tylenol 325mg Tab) 650 mg PO Q6 PRN PRN Reason: Fever >100.4 F Last Admin: 01/09/17 21:02 Dose: 650 mg Albuterol/Ipratropium (Duoneb 3 Mg/0.5 Mg (3 Ml) Ud) 3 ml INH RQ6 PRN PRN Reason: Wheezing Last Admin: 01/12/17 07:30 Dose: 3 ml Ascorbic Acid (Vitamin C 500 Mg Tab) 500 mg PO DAILY [facility] Last Admin: 01/15/17 10:17 Dose: 500 mg Calcium Carbonate (Tums) 500 mg PO BID [facility] Last Admin: 01/15/17 17:36 Dose: Not Given Diltiazem HCl (Cardizem) 5 mg IVP Q5M PRN PRN Reason: Heart rate Donepezil HCl (Aricept) 10 mg PO HS [facility] Last Admin: 01/14/17 21:36 Dose: 10 mg Enoxaparin Sodium (Lovenox) 40 mg SC DAILY [facility] Last Admin: 01/15/17 10:18 Dose: 40 mg Fentanyl (Duragesic) 1 patch TD Q72H [facility] Last Admin: 01/15/17 16:57 Dose: 1 patch Folic Acid (Folic Acid) 1 mg PO DAILY [facility] Last Admin: 01/15/17 10:17 Dose: 1 mg Hydromorphone HCl (Dilaudid) 1 mg IVP Q4H PRN PRN Reason: Pain, severe (8-10) Last Admin: 01/15/17 13:53 Dose: 1 mg Hydroxyurea (Hydrea) 1,000 mg PO DAILY [facility] Last Admin: 01/15/17 10:17 Dose: 1,000 mg Ceftriaxone Sodium 2 gm/ (Sodium Chloride) 100 mls @ 100 mls/hr IVPB Q24H [facility] Last Admin: 01/15/17 16:59 Dose: 100 mls/hr Metoprolol Tartrate (Lopressor) 5 mg IVP Q6H [facility] Last Admin: 01/15/17 10:18 Dose: Not Given Pantoprazole Sodium (Protonix Ec Tab) 40 mg PO DAILY [facility] Last Admin: 01/15/17 10:17 Dose: 40 mg Prednisone (Prednisone Tab) 5 mg PO DAILY [facility] Last Admin: 01/14/17 09:14 Dose: 5 mg Sennosides (Senokot Tab) 8.6 mg PO HS [facility] Last Admin: 01/14/17 21:36 Dose: 8.6 mg Thiamine HCl (Vitamin B1 Tab) 100 mg PO DAILY [facility] Last Admin: 01/15/17 10:17 Dose: 100 mg - Labs Labs: 01/13/17 06:07 01/13/17 06:07 PT 13.0 SECONDS (9.7-12.2) H 01/07/17 09:12 INR 1.1 01/07/17 09:12 APTT 49 SECONDS (21-34) H D 01/09/17 18:29 - Constitutional Appears: Non-toxic, Chronically Ill - Head Exam Head Exam: NORMOCEPHALIC - Eye Exam Eye Exam: absent: Scleral icterus - ENT Exam ENT Exam: Mucous Membranes Dry - Neck Exam Neck Exam: absent: Lymphadenopathy - Respiratory Exam Respiratory Exam: Decreased Breath Sounds, Rhonchi - Cardiovascular Exam Cardiovascular Exam: REGULAR RHYTHM, +S1, +S2 - GI/Abdominal Exam GI & Abdominal Exam: Distended, Soft. absent: Tenderness Assessment and Plan (1) Acute chest syndrome due to sickle cell crisis Status: Acute (2) Sickle cell disease Status: Acute (3) Hip pain Status: Acute (4) Leukocytosis Status: Acute (5) Pneumonia Status: Acute (6) Sickle cell crisis Status: Acute - Assessment and Plan (Free Text) Assessment: wbc persistently high dr shepherd to follow
[2017-01-16 00:32] VITALS: PULSE 108; TEMP 98.5
[2017-01-16] MEDS ORDERED: Metoprolol Succinate 25 mg XL Tab PO SCH (10:00)
--- NOTE | 2017-02-06 19:22 | CARD ---
APPROVED REPORT EKG Measurement Heart [id number] <Conclusion> Poor data quality, interpretation may be adversely affected Supraventricular tachycardia ST & T wave abnormality, consider lateral ischemia Abnormal ECG
--- NOTE | 2017-02-23 20:51 | CARD ---
APPROVED REPORT EKG Measurement Heart [id number] <Conclusion> Supraventricular tachycardia ST & T wave abnormality, consider inferior ischemia Abnormal ECG
--- NOTE | 2017-02-23 20:52 | CARD ---
APPROVED REPORT EKG Measurement Heart [id number] <Conclusion> Supraventricular tachycardia ST & T wave abnormality, consider lateral ischemia Abnormal ECG
== END 2017-01-16 00:40 | disposition home health service (06) | DRG 574 ==
LOC: C.ER 07:40 → C.9E 10:24 → C.3T 15:26 → C.5T 01-09 10:10 → C.9I 01-09 10:31 → C.3T 01-15 06:22
PROVIDERS: ADMIT Internal Medicine Nephrology; ATTEND Internal Medicine Nephrology
PROC: 02HV33Z Insertion of Infusion Device into Superior Vena Cava, Percutaneous Approach (ICD-10-PCS; principal; 2017-01-07)
DX: D57.01 Hb-SS disease with acute chest syndrome (principal); J18.9 Pneumonia, unspecified organism; I27.2 Other secondary pulmonary hypertension; R09.02 Hypoxemia; E87.6 Hypokalemia; I10 Essential (primary) hypertension; Z74.01 Bed confinement status; Z86.73 Personal history of transient ischemic attack (TIA), and cerebral infarction without residual deficits; Z87.891 Personal history of nicotine dependence; F32.89 Other specified depressive episodes

== ENCOUNTER 2018-10-27 16:45 | Inpatient (IN) | payer MEDICAID ==
[2018-10-27 16:46] VITALS: BMI 17.2
[2018-10-27 17:40] LABS: ALB/GLOB RATIO 1.1 (1.0-2.1); ALBUMIN 4.1 g/dL (3.5-5.0); ALT/SGPT 12 U/L (9-52); AST/SGOT 34 U/L (14-36); BLOOD UREA NITROGEN 9 mg/dL (7-17); CALCIUM 9.1 mg/dl (8.6-10.4); GFR NON-AFRICAN AMERICAN > 60
[2018-10-27 17:50] LABS: INR 1.2; PROTHROMBIN TIME 12.8 SECONDS (9.7-12.2)
--- NOTE | 2018-10-27 18:38 | C.PDOC ---
History Of Present Illness 47 y/o female brought to ER from [facility] for evaluation of low hemoglobin levels. Patient states that her hemoglobin levels are 6.2 Patient is complaining of generalized weakness and fatigue. She notes that she has history of transfusions secondary to sickle cell disease. Denies having fever,chills,cough, CP, SOB, nausea,vomiting, and abdominal pain. Time Seen by Provider: 10/27/18 16:57 Chief Complaint (Nursing): Abnormal Labs History Per: Patient History/Exam Limitations: no limitations Onset/Duration Of Symptoms: Days Current Symptoms Are (Timing): Still Present Severity: Moderate Past Medical History Reviewed: Historical Data, Nursing Documentation, Vital Signs - Medical History PMH: Anemia, Arthritis, CVA, Dementia, Depression, HTN, Pneumonia, Sickle Cell Disease Denies: Chronic Kidney Disease Other Surgeries: Hx of surgeries - [facility] Procedures INSERTION OF INFUSION DEV INTO SUP VENA CAVA, PERC APPROACH (01/07/17) INSERTION OF INFUSION DEVICE INTO R ATRIUM, PERC APPROACH (05/24/16) TRANSFUSE NONAUT RED BLOOD CELLS IN PERIPH VEIN, PERC (05/24/16) ULTRASONOGRAPHY OF RIGHT HEART (05/24/16) Family History: States: No Known Family Hx - Social History Hx Alcohol Use: No Hx Substance Use: No Review Of Systems Except As Marked, All Systems Reviewed And Found Negative. Constitutional: Positive for: Weakness. Negative for: Fever, Chills Cardiovascular: Negative for: Chest Pain Respiratory: Negative for: Shortness of Breath Gastrointestinal: Negative for: Nausea, Vomiting, Abdominal Pain Physical Exam - Physical Exam Appears: Non-toxic, No Acute Distress Skin: Normal Color, Warm, Dry Head: Atraumatic, Normacephalic Nose: Normal Oral Mucosa: Moist Neck: Supple Chest: Symmetrical Cardiovascular: Rhythm Regular Respiratory: Normal Breath Sounds, No Rales, No Rhonchi, No Wheezing Gastrointestinal/Abdominal: Normal Exam, Soft, No Tenderness, No Guarding, No Rebound Extremity: Other (extremities contracted) Neurological/Psych: Oriented x3, Normal Speech ED Course And Treatment - Laboratory Results Result Diagrams: 10/27/18 17:17 Lab Results: PT 12.8 SECONDS (9.7-12.2) H 10/27/18 17:17 INR 1.2 10/27/18 17:17 APTT 20 SECONDS (21-34) L 10/27/18 17:17 Total Bilirubin 0.5 mg/dL (0.2-1.3) 10/27/18 17:17 AST 34 U/L (14-36) 10/27/18 17:17 ALT 12 U/L (9-52) 10/27/18 17:17 Alkaline Phosphatase 39 U/L (38-126) 10/27/18 17:17 Total Protein 7.8 g/dL (6.3-8.3) 10/27/18 17:17 Albumin 4.1 g/dL (3.5-5.0) 10/27/18 17:17 Globulin 3.6 gm/dL (2.2-3.9) 10/27/18 17:17 Albumin/Globulin Ratio 1.1 (1.0-2.1) 10/27/18 17:17 Medical Decision Making Medical Decision Making: Plan: --Labs Updates: Case discussed with Dr.J Daugherty. He has been informed that there was no success in gaining IV access. He advises for patient to be admitted for possible surgical IV insertion tomorrow along with blood transfusion. Patient's vital signs are stable and there is no active bleeding. Patient has been admitted under the service of Dr.J Daugherty. Disposition - Disposition Disposition Time: 18:40 Condition: FAIR Forms: [facility] (Guamanian) - Clinical Impression Clinical Impression: Symptomatic anemia - Scribe Statement The provider has reviewed the documentation as recorded by the Omeroibe Daja Arboleda Provider Attestation: All medical record entries made by the Scribe were at my direction and personally dictated by me. I have reviewed the chart and agree that the record accurately reflects my personal performance of the history, physical exam, medical decision making, and the department course for this patient. I have also personally directed, reviewed, and agree with the discharge instructions and disposition.
[2018-10-27 19:09] LABS: MEAN CORPUSCULAR HGB CONC 31.7 g/dL (33.0-37.0); MEAN PLATELET VOLUME 9.5 fL (7.2-11.7); RBC 2.11 Mil/uL (3.80-5.20); RED CELL DISTRIBUTION WIDTH 17.6 % (11.5-14.5)
[2018-10-27 19:11] LABS: MEAN CELL VOLUME 104.3 fL (81.0-99.0); WHITE BLOOD COUNT 6.2 K/uL (4.8-10.8)
[2018-10-27 19:51] LABS: EOS % 2.6 % (0.0-4.0); LYMPH % 15.1 % (20.0-40.0); MONO % 7.1 % (0.0-10.0); NEUT % 74.5 % (50.0-75.0)
[2018-10-27 19:52] LABS: BASO % 0.7 % (0.0-2.0)
[2018-10-27 20:16] LABS: EOS # 0.2 K/uL (0.0-0.7); LYMPH # 0.9 K/uL (1.0-4.3); MONO # 0.4 K/uL (0.0-0.8); NEUT # 4.4 K/uL (1.8-7.0); NRBC % 46.7 % (0.0-2.0)
[2018-10-27] MEDS ORDERED: Aluminum Hydroxide/Magnesium Hydroxide Susp (30 mL) PO PRN (22:22)
[2018-10-27] MEDS ORDERED: Oxycodone/Acetaminophen 5/325 mg Tab PO PRN (22:26)
[2018-10-27] MEDS: Morphine 30 mg SR Tab PO SCH (23:03)
--- NOTE | 2018-10-28 08:11 | CP.PCM.HP ---
Present on Admission - Present on Admission Any Indicators Present on Admission: No Past Patient History - Past Medical History & Family History Past Medical History?: Yes - Past Social History Smoking Status: Former Smoker - CARDIAC Hx Hypertension: Yes - PULMONARY Hx Pneumonia: Yes - NEUROLOGICAL Hx Dementia: Yes - HEENT Hx HEENT Problems: No - RENAL Hx Chronic Kidney Disease: No - ENDOCRINE/METABOLIC Hx Endocrine Disorders: No - HEMATOLOGICAL/ONCOLOGICAL Hx Anemia: Yes Hx Sickle Cell Disease: Yes - INTEGUMENTARY Hx Dermatological Problems: No - MUSCULOSKELETAL/RHEUMATOLOGICAL Hx Arthritis: Yes Hx Falls: No - GASTROINTESTINAL Hx Gastrointestinal Disorders: No - GENITOURINARY/GYNECOLOGICAL Hx Genitourinary Disorders: No - PSYCHIATRIC Hx Depression: Yes Hx Substance Use: No - SURGICAL HISTORY Hx Surgeries: Yes Other/Comment: tendon release - ANESTHESIA Hx Anesthesia: Yes Hx Anesthesia Reactions: No Hx Malignant Hyperthermia: No Has any member of the family had a problem w/ anesthesia?: No Meds Allergies/Adverse Reactions: Allergies Allergy/AdvReac Type Severity Reaction Status Date / Time No Known Allergies Allergy Verified 10/27/18 16:56 Results - Vital Signs Recent Vital Signs: Last Vital Signs Temp 98.8 F 10/28/18 07:56 Pulse 111 H 10/28/18 07:56 Resp 20 10/28/18 07:56 BP 106/69 10/28/18 07:56 Pulse Ox 98 10/28/18 07:56 - Labs Result Diagrams: 10/27/18 18:28 10/27/18 17:17 Labs: Laboratory Results - last 24 hr 10/27/18 10/27/18 10/27/18 17:17 17:17 17:17 WBC RBC Hgb Hct MCV MCH MCHC RDW Plt Count MPV Neut % (Auto) Lymph % (Auto) [place] % (Auto) Eos % (Auto) Baso % (Auto) Neut # (Auto) Lymph # (Auto) [place] # (Auto) Eos # (Auto) Baso # (Auto) PT 12.8 H INR 1.2 APTT 20 L Sodium 137 Potassium 3.5 L Chloride 103 Carbon Dioxide 25 Anion Gap 13 BUN 9 Creatinine 0.6 L Est GFR ( Amer) > 60 Est GFR (Non-Af Amer) > 60 Random Glucose 104 D Calcium 9.1 Total Bilirubin 0.5 AST 34 ALT 12 Alkaline Phosphatase 39 Total Protein 7.8 Albumin 4.1 Globulin 3.6 Albumin/Globulin Ratio 1.1 Blood Type A NEGATIVE Antibody Screen Positive Antibody Identification Anti D Antigen Identification C Antigen - NEGATIVE 10/27/18 18:28 WBC 6.2 D RBC 2.11 L Hgb 7.0 L Hct 21.9 L MCV 104.3 H D MCH 33.0 H MCHC 31.7 L RDW 17.6 H Plt Count 181 MPV 9.5 Neut % (Auto) 74.5 Lymph % (Auto) 15.1 L [place] % (Auto) 7.1 Eos % (Auto) 2.6 Baso % (Auto) 0.7 Neut # (Auto) 4.4 Lymph # (Auto) 0.9 L [place] # (Auto) 0.4 Eos # (Auto) 0.2 Baso # (Auto) 0.0 PT INR APTT Sodium Potassium Chloride Carbon Dioxide Anion Gap BUN Creatinine Est GFR ( Amer) Est GFR (Non-Af Amer) Random Glucose Calcium Total Bilirubin AST ALT Alkaline Phosphatase Total Protein Albumin Globulin Albumin/Globulin Ratio Blood Type Antibody Screen Antibody Identification Antigen Identification
[2018-10-28] MEDS: Potassium Chloride 10 mEq ER Tab PO SCH (09:15)
[2018-10-28] MEDS: Pantoprazole 40 mg EC Tab PO SCH (10:51)
[2018-10-28] MEDS: Morphine 30 mg SR Tab PO SCH ×2 (10:58→21:30)
[2018-10-28 12:33] LABS: MEAN CORPUSCULAR HEMOGLOBIN 33.6 pg (27.0-31.0); MEAN CORPUSCULAR HGB CONC 31.8 g/dL (33.0-37.0); MEAN PLATELET VOLUME 9.3 fL (7.2-11.7); RBC 1.98 Mil/uL (3.80-5.20); RED CELL DISTRIBUTION WIDTH 16.9 % (11.5-14.5)
[2018-10-28 12:35] LABS: HEMOGLOBIN 6.7 g/dL (11.0-16.0); MEAN CELL VOLUME 105.4 fL (81.0-99.0)
[2018-10-28 13:11] LABS: EOS # 0.1 K/uL (0.0-0.7); LYMPH # 2.4 K/uL (1.0-4.3); MONO # 0.1 K/uL (0.0-0.8); NEUT # 3.5 K/uL (1.8-7.0)
--- NOTE | 2018-10-28 21:12 | CP.PCM.CON ---
History of Present Illness - History of Present Illness History of Present Illness: 47 year old female with a history of sickle cell anemia, acute chest syndrome, admitted from the [facility] after being found to have anemia. The patient notes she has been more achy in her bones and joint. Her hgb was found to be 6.2 and she was sent to the hospital. She is currently s/p 1U PRBC and due for an additional unit. She denies abnormal bleeding and bruising. Past medical history: Sickle cell anemia Past surgical history: Cholecystectomy Family history: Sickle cell trait Social history: Denies tobacco, alcohol, and illicit drug use. Allergies: NKA Review of systems: All remaining review of systems including HEENT, cardiovascular, respiratory, gastrointestinal, genitourinary, musculoskeletal, dermatologic, neurologic, and psychiatric are negative unless mentioned in the HPI. Past Patient History - Past Medical History & Family History Past Medical History?: Yes - Past Social History Smoking Status: Former Smoker - CARDIAC Hx Pacemaker: No - PULMONARY Hx Pneumonia: Yes - NEUROLOGICAL Hx Dementia: Yes - HEENT Hx HEENT Problems: No - RENAL Hx Chronic Kidney Disease: No - ENDOCRINE/METABOLIC Hx Endocrine Disorders: No - HEMATOLOGICAL/ONCOLOGICAL Hx Cancer: No - INTEGUMENTARY Hx Dermatological Problems: No - MUSCULOSKELETAL/RHEUMATOLOGICAL Hx Arthritis: Yes Hx Falls: No - GASTROINTESTINAL Hx Gastrointestinal Disorders: No - GENITOURINARY/GYNECOLOGICAL Hx Genitourinary Disorders: No - PSYCHIATRIC Hx Depression: Yes Hx Substance Use: No - SURGICAL HISTORY Hx Mastectomy: No - ANESTHESIA Hx Anesthesia: Yes Hx Anesthesia Reactions: No Hx Malignant Hyperthermia: No Has any member of the family had a problem w/ anesthesia?: No Meds Allergies/Adverse Reactions: Allergies Allergy/AdvReac Type Severity Reaction Status Date / Time No Known Allergies Allergy Verified 10/27/18 16:56 - Medications Medications: Current Medications Al Hydrox/Mg Hydrox/Simethicone (Maalox 30 Ml) 30 ml PO Q6H PRN PRN Reason: Indigestion / Heartburn Ascorbic Acid (Vitamin C 500 Mg Tab) 500 mg PO DAILY [facility] Last Admin: 10/28/18 10:51 Dose: 500 mg Aspirin (Ecotrin) 81 mg PO DAILY [facility] Last Admin: 10/28/18 10:49 Dose: 81 mg Donepezil HCl (Aricept) 10 mg PO HS [facility] Last Admin: 10/27/18 23:03 Dose: 10 mg Ergocalciferol (Drisdol 50,000 Intl Units Cap) 1 cap PO Q7D [facility] Fentanyl (Duragesic) 1 patch TD Q72H [facility] Folic Acid (Folic Acid) 1 mg PO DAILY [facility] Last Admin: 10/28/18 10:48 Dose: 1 mg Hydroxyurea (Hydrea) 1,000 mg PO DAILY [facility] Last Admin: 10/28/18 11:29 Dose: 1,000 mg Memantine (Namenda) 10 mg PO Q12H [facility] Last Admin: 10/28/18 10:47 Dose: 10 mg Morphine Sulfate (Morphine Extended Release Tab) 60 mg PO Q12 [facility] Last Admin: 10/28/18 10:58 Dose: 60 mg Oxycodone/Acetaminophen (Percocet 5/325 Mg Tab) 2 tab PO Q6H PRN PRN Reason: Pain, moderate (4-7) Stop: 10/30/18 22:27 Pantoprazole Sodium (Protonix Ec Tab) 40 mg PO DAILY [facility] Last Admin: 10/28/18 10:51 Dose: 40 mg Potassium Chloride (Klor-Con 10) 10 meq PO BRK [facility] Last Admin: 10/28/18 09:15 Dose: 10 meq Sennosides (Senokot Tab) 8.6 mg PO HS [facility] Thiamine HCl (Vitamin B1 Tab) 100 mg PO DAILY [facility] Last Admin: 10/28/18 10:53 Dose: 100 mg Physical Exam - Head Exam Head Exam: ATRAUMATIC - Eye Exam Eye Exam: Normal appearance - ENT Exam ENT Exam: Mucous Membranes Dry - Respiratory Exam Respiratory Exam: NORMAL BREATHING PATTERN - Cardiovascular Exam Cardiovascular Exam: +S1, +S2 - GI/Abdominal Exam GI & Abdominal Exam: Normal Bowel Sounds - Neurological Exam Neurological exam: Oriented x3 - Psychiatric Exam Psychiatric exam: Normal Affect, Normal Mood - Skin Skin Exam: Warm Results - Vital Signs Recent Vital Signs: Last Vital Signs Temp 98.3 F 10/28/18 20:45 Pulse 91 H 10/28/18 20:45 Resp 18 10/28/18 20:45 BP 101/66 10/28/18 20:45 Pulse Ox 98 10/28/18 19:35 - Labs Result Diagrams: 10/28/18 11:40 10/27/18 17:17 Labs: Laboratory Results - last 24 hr 10/27/18 10/28/18 10/28/18 17:17 11:40 11:40 WBC 6.0 RBC 1.98 L Hgb 6.7 L Hct 20.5 L MCV 105.4 H MCH 33.6 H MCHC 31.8 L RDW 16.9 H Plt Count 166 MPV 9.3 Neut % (Auto) 58.0 Lymph % (Auto) 39.0 [facility] % (Auto) 1.0 Eos % (Auto) 2.0 Baso % (Auto) 0.0 Neut # (Auto) 3.5 Lymph # (Auto) 2.4 [facility] # (Auto) 0.1 Eos # (Auto) 0.1 Baso # (Auto) 0.0 Retic Count 1.2 D Blood Type A NEGATIVE Antibody Screen Positive Antibody Identification Anti D Antigen Identification C Antigen - NEGATIVE Assessment & Plan (1) Anemia Assessment and Plan: secondary to sickle cell anemia retic count, b12, folate, ferritin to further characterize transfusion support PRN Status: Acute (2) Sickle cell disease Assessment and Plan: folic acid and hydrea Thank yo for this interesting consult. Status: Acute
[2018-10-28 23:15] VITALS: RESP 20
[2018-10-29] MEDS: Potassium Chloride 10 mEq ER Tab PO SCH (08:30)
[2018-10-29] MEDS: Pantoprazole 40 mg EC Tab PO SCH (09:38)
[2018-10-29] MEDS: Morphine 30 mg SR Tab PO SCH ×2 (09:38→21:59)
[2018-10-29] MEDS ORDERED: Ergocalciferol 50,000 Intl Units Cap PO SCH (10:00)
[2018-10-29 11:34] LABS: MEAN CORPUSCULAR HEMOGLOBIN 32.4 pg (27.0-31.0); MEAN CORPUSCULAR HGB CONC 33.4 g/dL (33.0-37.0); MEAN PLATELET VOLUME 9.5 fL (7.2-11.7); RBC 2.98 Mil/uL (3.80-5.20); RED CELL DISTRIBUTION WIDTH 20.3 % (11.5-14.5); WHITE BLOOD COUNT 4.5 K/uL (4.8-10.8)
[2018-10-29 11:44] LABS: BLOOD UREA NITROGEN 8 mg/dL (7-17); CALCIUM 8.5 mg/dl (8.6-10.4); GFR NON-AFRICAN AMERICAN > 60
[2018-10-29 11:46] LABS: HEMOGLOBIN 9.7 g/dL (11.0-16.0); MEAN CELL VOLUME 96.9 fL (81.0-99.0)
[2018-10-29 12:58] LABS: FOLATE > 20.0 ng/mL
[2018-10-29 13:02] LABS: EOS # 0.5 K/uL (0.0-0.7); MONO # 0.6 K/uL (0.0-0.8); NEUT # 2.9 K/uL (1.8-7.0)
--- NOTE | 2018-10-29 14:27 | CP.PCM.PN ---
Subjective - Date & Time of Evaluation Date of Evaluation: 10/29/18 Time of Evaluation: 14:27 - Subjective Subjective: PATIENT SEEN AND EXAMINED AT THE BEDSIDE Objective - Vital Signs/Intake and Output Vital Signs (last 24 hours): Temp Pulse Resp BP Pulse Ox 98.1 F 80 20 106/67 99 10/29/18 07:00 10/29/18 07:00 10/29/18 07:00 10/29/18 07:00 10/29/18 07:00 Intake and Output: 10/29/18 10/29/18 06:59 18:59 Intake Total 1700 Output Total 600 Balance 1100 - Medications Medications: Current Medications Al Hydrox/Mg Hydrox/Simethicone (Maalox 30 Ml) 30 ml PO Q6H PRN PRN Reason: Indigestion / Heartburn Ascorbic Acid (Vitamin C 500 Mg Tab) 500 mg PO DAILY [facility] Last Admin: 10/29/18 09:38 Dose: 500 mg Aspirin (Ecotrin) 81 mg PO DAILY [facility] Last Admin: 10/29/18 09:40 Dose: 81 mg Donepezil HCl (Aricept) 10 mg PO HS [facility] Last Admin: 10/28/18 21:30 Dose: 10 mg Ergocalciferol (Drisdol 50,000 Intl Units Cap) 1 cap PO Q7D [facility] Last Admin: 10/29/18 09:40 Dose: 1 cap Fentanyl (Duragesic) 1 patch TD Q72H [facility] Last Admin: 10/29/18 09:40 Dose: 1 patch Folic Acid (Folic Acid) 1 mg PO DAILY [facility] Last Admin: 10/29/18 09:38 Dose: 1 mg Hydroxyurea (Hydrea) 1,000 mg PO DAILY [facility] Last Admin: 10/29/18 09:38 Dose: 1,000 mg Memantine (Namenda) 10 mg PO Q12H [facility] Last Admin: 10/29/18 09:38 Dose: 10 mg Morphine Sulfate (Morphine Extended Release Tab) 60 mg PO Q12 [facility] Last Admin: 10/29/18 09:38 Dose: 60 mg Oxycodone/Acetaminophen (Percocet 5/325 Mg Tab) 2 tab PO Q6H PRN PRN Reason: Pain, moderate (4-7) Stop: 10/30/18 22:27 Last Admin: 10/29/18 02:37 Dose: 2 tab Pantoprazole Sodium (Protonix Ec Tab) 40 mg PO DAILY [facility] Last Admin: 10/29/18 09:38 Dose: 40 mg Potassium Chloride (Klor-Con 10) 10 meq PO BRK [facility] Last Admin: 10/29/18 08:30 Dose: 10 meq Sennosides (Senokot Tab) 8.6 mg PO HS [facility] Last Admin: 10/28/18 21:30 Dose: 8.6 mg Thiamine HCl (Vitamin B1 Tab) 100 mg PO DAILY [facility] Last Admin: 10/29/18 09:38 Dose: 100 mg - Labs Labs: 10/29/18 11:20 10/29/18 11:20 PT 12.8 SECONDS (9.7-12.2) H 10/27/18 17:17 INR 1.2 10/27/18 17:17 APTT 20 SECONDS (21-34) L 10/27/18 17:17 Assessment and Plan - Assessment and Plan (Free Text) Assessment: FOLLOW UP WITH DR Danya MARTINEZ IN HIS OFFICE ----CALL FOR APPOINTMENT FOLLOW UP WITH DR COLEMAN IN HIS OFFICE ------CALL FOR APPOINTMENT CONTINUE HOME MEDICATION ACTIVITY TOLERATED CALL DR Danya MARTINEZ OR GO TO THE EMERGENCY ROOM IF SYMPTOM RETURN OR WORSENING
--- NOTE | 2018-10-29 19:48 | CP.PCM.PN ---
Subjective - Date & Time of Evaluation Date of Evaluation: 10/29/18 Time of Evaluation: 08:15 - Subjective Subjective: clinically same Objective - Vital Signs/Intake and Output Vital Signs (last 24 hours): Temp Pulse Resp BP Pulse Ox 98.0 F 71 20 90/57 L 99 10/29/18 15:00 10/29/18 15:00 10/29/18 15:00 10/29/18 15:00 10/29/18 15:00 Intake and Output: 10/29/18 10/30/18 18:59 06:59 Intake Total 480 Output Total 350 Balance 130 - Medications Medications: Current Medications Al Hydrox/Mg Hydrox/Simethicone (Maalox 30 Ml) 30 ml PO Q6H PRN PRN Reason: Indigestion / Heartburn Ascorbic Acid (Vitamin C 500 Mg Tab) 500 mg PO DAILY [facility] Last Admin: 10/29/18 09:38 Dose: 500 mg Aspirin (Ecotrin) 81 mg PO DAILY [facility] Last Admin: 10/29/18 09:40 Dose: 81 mg Donepezil HCl (Aricept) 10 mg PO HS [facility] Last Admin: 10/28/18 21:30 Dose: 10 mg Ergocalciferol (Drisdol 50,000 Intl Units Cap) 1 cap PO Q7D [facility] Last Admin: 10/29/18 09:40 Dose: 1 cap Fentanyl (Duragesic) 1 patch TD Q72H [facility] Last Admin: 10/29/18 09:40 Dose: 1 patch Folic Acid (Folic Acid) 1 mg PO DAILY [facility] Last Admin: 10/29/18 09:38 Dose: 1 mg Hydroxyurea (Hydrea) 1,000 mg PO DAILY [facility] Last Admin: 10/29/18 09:38 Dose: 1,000 mg Memantine (Namenda) 10 mg PO Q12H [facility] Last Admin: 10/29/18 09:38 Dose: 10 mg Morphine Sulfate (Morphine Extended Release Tab) 60 mg PO Q12 [facility] Last Admin: 10/29/18 09:38 Dose: 60 mg Oxycodone/Acetaminophen (Percocet 5/325 Mg Tab) 2 tab PO Q6H PRN PRN Reason: Pain, moderate (4-7) Stop: 10/30/18 22:27 Last Admin: 10/29/18 02:37 Dose: 2 tab Pantoprazole Sodium (Protonix Ec Tab) 40 mg PO DAILY [facility] Last Admin: 10/29/18 09:38 Dose: 40 mg Potassium Chloride (Klor-Con 10) 10 meq PO BRK [facility] Last Admin: 10/29/18 08:30 Dose: 10 meq Sennosides (Senokot Tab) 8.6 mg PO HS [facility] Last Admin: 10/28/18 21:30 Dose: 8.6 mg Thiamine HCl (Vitamin B1 Tab) 100 mg PO DAILY [facility] Last Admin: 10/29/18 09:38 Dose: 100 mg - Labs Labs: 10/29/18 11:20 10/29/18 11:20 PT 12.8 SECONDS (9.7-12.2) H 10/27/18 17:17 INR 1.2 10/27/18 17:17 APTT 20 SECONDS (21-34) L 10/27/18 17:17
[2018-10-30 08:10] VITALS: BP 105/71; PULSE 84; TEMP 98; O2SAT 100
[2018-10-30] MEDS: Potassium Chloride 10 mEq ER Tab PO SCH (08:54)
--- NOTE | 2018-10-31 22:53 | CP.PCM.PN ---
Subjective - Date & Time of Evaluation Date of Evaluation: 10/29/18 Time of Evaluation: 12:00 - Subjective Subjective: Feeling better. Objective - Vital Signs/Intake and Output Vital Signs (last 24 hours): Temp Pulse Resp BP Pulse Ox 98 F 84 20 105/71 100 10/30/18 08:09 10/30/18 08:09 10/30/18 08:09 10/30/18 08:09 10/30/18 08:09 - Labs Labs: 10/29/18 11:20 10/29/18 11:20 PT 12.8 SECONDS (9.7-12.2) H 10/27/18 17:17 INR 1.2 10/27/18 17:17 APTT 20 SECONDS (21-34) L 10/27/18 17:17 - Head Exam Head Exam: ATRAUMATIC - Eye Exam Eye Exam: Normal appearance - ENT Exam ENT Exam: Mucous Membranes Dry - Respiratory Exam Respiratory Exam: NORMAL BREATHING PATTERN - Cardiovascular Exam Cardiovascular Exam: +S1, +S2 - GI/Abdominal Exam GI & Abdominal Exam: Normal Bowel Sounds Assessment and Plan (1) Anemia Assessment & Plan: sickle cell anemia H/H improved Status: Acute (2) Sickle cell disease Assessment & Plan: outpatient hydrea and folic acid Status: Acute
== END 2018-10-30 08:30 | DRG 663 ==
LOC: C.ER 16:45 → C.9E 18:47 → C.3T 21:09
PROVIDERS: ADMIT Internal Medicine Nephrology; ATTEND Internal Medicine Nephrology
PROC: 30233N1 Transfusion of Nonautologous Red Blood Cells into Peripheral Vein, Percutaneous Approach (ICD-10-PCS; principal; 2018-10-27)
DX: D57.1 Sickle-cell disease without crisis (principal); F03.90 Unspecified dementia, unspecified severity, without behavioral disturbance, psychotic disturbance, mood disturbance, and anxiety; I10 Essential (primary) hypertension; F32.9 Major depressive disorder, single episode, unspecified; Z86.73 Personal history of transient ischemic attack (TIA), and cerebral infarction without residual deficits; Z87.01 Personal history of pneumonia (recurrent); Z87.891 Personal history of nicotine dependence

== ENCOUNTER 2019-01-06 11:37 | Observation (INO) | payer MEDICAID ==
[2019-01-06 11:38] VITALS: BMI 17.2
[2019-01-06 12:41] LABS: MEAN CELL VOLUME 98.8 fL (81.0-99.0); MEAN CORPUSCULAR HEMOGLOBIN 32.1 pg (27.0-31.0); MEAN CORPUSCULAR HGB CONC 32.5 g/dL (33.0-37.0); MEAN PLATELET VOLUME 9.8 fL (7.2-11.7); RBC 2.49 Mil/uL (3.80-5.20); RED CELL DISTRIBUTION WIDTH 18.8 % (11.5-14.5); WHITE BLOOD COUNT 6.9 K/uL (4.8-10.8)
[2019-01-06 12:56] LABS: ALB/GLOB RATIO 0.8 (1.0-2.1); ALBUMIN 4.4 g/dL (3.5-5.0); ALT/SGPT 8 U/L (9-52); AST/SGOT 51 U/L (14-36); BLOOD UREA NITROGEN 9 mg/dL (7-17); CALCIUM 9.9 mg/dl (8.6-10.4); GFR NON-AFRICAN AMERICAN > 60
[2019-01-06 13:12] LABS: NEUT # 4.6 K/uL (1.8-7.0)
[2019-01-06 13:13] LABS: BASO # 0.1 K/uL (0.0-0.2); EOS # 0.1 K/uL (0.0-0.7); LYMPH # 1.7 K/uL (1.0-4.3); MONO # 0.4 K/uL (0.0-0.8); NRBC % 73.1 % (0.0-2.0)
--- NOTE | 2019-01-06 13:48 | C.PDOC ---
History Of Present Illness 48 y/o female,w/PMhx of sickle cell disease and chronic anemia, brought to ER by [facility] for evaluation and management of anemia.Patient states that she lives in [facility] because she had stroke at 36. She is severely debilitated. She uses a wheelchair as she is not able to stand or walk. Patient states that she had abnormal levels with hemoglobin level 6-7 at [facility]. The [facility] staff referred her to the ER. She notes that she feels tired and has generalized weakness Denies having fever,chills, headache,dizziness, neck pain, nausea, vomiting, and abdominal pain. Time Seen by Provider: 01/06/19 11:56 Chief Complaint (Nursing): Abnormal Labs History Per: Patient History/Exam Limitations: no limitations Onset/Duration Of Symptoms: Days Current Symptoms Are (Timing): Still Present Severity: Moderate Past Medical History Reviewed: Historical Data, Nursing Documentation, Vital Signs Vital Signs: Last Vital Signs Temp 98.4 F 01/06/19 11:45 Pulse 96 H 01/06/19 11:45 Resp 20 01/06/19 11:45 BP 117/74 01/06/19 11:45 Pulse Ox 100 01/06/19 11:45 Primary Care Provider: Anitha Daugherty Medical History PMH: Anemia, Arthritis, CVA, Dementia, Depression, HTN, Pneumonia, Sickle Cell Disease Denies: Deep Vein Thrombosis, Chronic Kidney Disease Surgical History: Denies: Pacemaker - [facility] Procedures INSERTION OF INFUSION DEV INTO SUP VENA CAVA, PERC APPROACH (01/07/17) INSERTION OF INFUSION DEVICE INTO R ATRIUM, PERC APPROACH (05/24/16) TRANSFUSE NONAUT RED BLOOD CELLS IN PERIPH VEIN, PERC (10/27/18) ULTRASONOGRAPHY OF RIGHT HEART (05/24/16) Family History: States: No Known Family Hx - Social History Hx Alcohol Use: No Hx Substance Use: No - Immunization History Hx Tetanus Toxoid Vaccination: No Hx Influenza Vaccination: Yes Hx Pneumococcal Vaccination: No Review Of Systems Except As Marked, All Systems Reviewed And Found Negative. Constitutional: Positive for: Weakness. Negative for: Fever, Chills Cardiovascular: Negative for: Chest Pain Respiratory: Negative for: Shortness of Breath Gastrointestinal: Negative for: Nausea, Vomiting, Abdominal Pain Physical Exam - Physical Exam Appears: Non-toxic, No Acute Distress, Other (awake,alert,conversational) Skin: Normal Color, Warm, Dry, Other (minor skin changes to sacral area,no bleeding, no pus, no oozing) Head: Atraumatic, Normacephalic Eye(s): bilateral: Normal Inspection Nose: Normal Oral Mucosa: Moist Neck: No Midline Cervical Tenderness, Supple Chest: Symmetrical Cardiovascular: Rhythm Regular Respiratory: Normal Breath Sounds, No Rales, No Rhonchi, No Wheezing Gastrointestinal/Abdominal: Normal Exam, Soft, No Tenderness, No Guarding, No Rebound Extremity: No Normal ROM (bilateral hips and lower extremities are severely contracted), Tenderness (mild tenderness to sacral area), Other (bilateral lower extremities are tilted to the left) Neurological/Psych: Oriented x3, Normal Speech ED Course And Treatment - Laboratory Results Result Diagrams: 01/06/19 12:33 01/06/19 12:33 Lab Results: Troponin I < 0.0120 ng/mL (0.00-0.120) 01/06/19 12:33 Total Bilirubin 0.6 mg/dL (0.2-1.3) 01/06/19 12:33 AST 51 U/L (14-36) H D 01/06/19 12:33 ALT 8 U/L (9-52) L D 01/06/19 12:33 Alkaline Phosphatase 46 U/L (38-126) 01/06/19 12:33 Total Protein 10.0 g/dL (6.3-8.3) H 01/06/19 12:33 Albumin 4.4 g/dL (3.5-5.0) 01/06/19 12:33 Globulin 5.5 gm/dL (2.2-3.9) H 01/06/19 12:33 Albumin/Globulin Ratio 0.8 (1.0-2.1) L 01/06/19 12:33 O2 Sat by Pulse Oximetry: 100 (RA) Pulse Ox Interpretation: Normal Medical Decision Making Medical Decision Making: Plan: --Labs --UA Updates: Labs Reviewed. Patient has hemoglobin level 6.7. Case discussed with Dr Henriquez. Dr. Danya Daugherty advises for patient to be admitted in Obs for blood transfusion. Patient has been admitted to Obs. Disposition Discussed With DrWoody: Anitha Daugherty Counseled Patient/Family Regarding: Studies Performed, Diagnosis - Disposition Disposition: HOSPITALIZED Disposition Time: 13:46 Condition: GUARDED - POA Present On Arrival: None - Clinical Impression Clinical Impression: Anemia - Scribe Statement The provider has reviewed the documentation as recorded by the Omeroibe Daja Arboleda Provider Attestation: All medical record entries made by the Omeroibe were at my direction and personally dictated by me. I have reviewed the chart and agree that the record accurately reflects my personal performance of the history, physical exam, medical decision making, and the department course for this patient. I have also personally directed, reviewed, and agree with the discharge instructions and disposition. Decision To Admit - Pt Status Changed To: Hospital Disposition Of: Observation - . Bed Request Type: Regular Admitting Physician: Anitha Daugherty Patient Diagnosis: Anemia
[2019-01-06 13:52] LABS: SQUAMOUS EPITHIAL 1 /hpf (0-5); URINE BILIRUBIN NEGATIVE (NEGATIVE); URINE BLOOD NEGATIVE (NEGATIVE); URINE CLARITY Clear (Clear); URINE COLOR Yellow (YELLOW); URINE GLUCOSE (UA) NORMAL (Normal); URINE LEUKOCYTE ESTERASE NEG Leu/uL (Negative); URINE PROTEIN NEGATIVE (NEGATIVE); URINE UROBILINOGEN NORMAL mg/dL (0.2-1.0)
[2019-01-06 14:06] LABS: BARBITURATES, UR NEGATIVE (NEGATIVE); BENZODIAZEPINES, UR NEGATIVE (NEGATIVE); PHENCYCLIDINE, UR NEGATIVE (NEGATIVE)
--- NOTE | 2019-01-06 14:51 | CP.PCM.HP ---
History of Present Illness - History of Present Illness History of Present Illness: 48-year-old female with past medical history of sickle cell disease arthritis anemia dementia depression hypertension pneumonia sickle cell admitted for low hemoglobin at the rehab which was 6.7 eventually patient came to the [facility] for further work-up Patient is a chronic [facility] resident checks her blood pressure regularly there patient is bedbound patient is severely debilitated patient has history of stroke eventually patient came here underwent further work-up at the hospital with a hemoglobin of 8 creatinine of 0.6 eventually patient has complains of back pain complains of leg pain Denies headache, Dizziness,Neck pain,Nausea vomiting ,abdominal pain Denies chest pain- Medical History PMH: Anemia, Arthritis, CVA, Dementia, Depression, HTN, Pneumonia, Sickle Cell Disease Denies: Deep Vein Thrombosis, Chronic Kidney Disease Surgical History: Denies: Pacemaker - [facility] Procedures INSERTION OF INFUSION DEV INTO SUP VENA CAVA, PERC APPROACH (01/07/17) INSERTION OF INFUSION DEVICE INTO R ATRIUM, PERC APPROACH (05/24/16) TRANSFUSE NONAUT RED BLOOD CELLS IN PERIPH VEIN, PERC (10/27/18) ULTRASONOGRAPHY OF RIGHT HEART (05/24/16) Family History: States: No Known Family Hx - Social History Hx Alcohol Use: No Hx Substance Use: No - Immunization History Hx Tetanus Toxoid Vaccination: No Hx Influenza Vaccination: Yes Hx Pneumococcal Vaccination: No Review Of Systems Except As Marked, All Systems Reviewed And Found Negative. Constitutional: Positive for: Weakness. Negative for: Fever, Chills Cardiovascular: Negative for: Chest Pain Respiratory: Negative for: Shortness of Breath Gastrointestinal: Negative for: Nausea, Vomiting, Abdominal Pain skin normal turgor ms system pain in joints heent negative Present on Admission - Present on Admission Any Indicators Present on Admission: No Past Patient History - Past Medical History & Family History Past Medical History?: Yes - Past Social History Smoking Status: Former Smoker - CARDIAC Hx Hypertension: Yes Hx Pacemaker: No - PULMONARY Hx Pneumonia: Yes - NEUROLOGICAL Hx Dementia: Yes - HEENT Hx HEENT Problems: No - RENAL Hx Chronic Kidney Disease: No - ENDOCRINE/METABOLIC Hx Endocrine Disorders: No - HEMATOLOGICAL/ONCOLOGICAL Hx Anemia: Yes Hx Sickle Cell Disease: Yes - INTEGUMENTARY Hx Dermatological Problems: No - MUSCULOSKELETAL/RHEUMATOLOGICAL Hx Arthritis: Yes - GASTROINTESTINAL Hx Gastroesophageal Reflux: Yes Hx Ulcer: Yes - GENITOURINARY/GYNECOLOGICAL Hx Genitourinary Disorders: No - PSYCHIATRIC Hx Depression: Yes Hx Substance Use: No - SURGICAL HISTORY Hx Surgeries: Yes Other/Comment: tendon release - ANESTHESIA Hx Anesthesia: Yes Hx Anesthesia Reactions: No Hx Malignant Hyperthermia: No Meds Allergies/Adverse Reactions: Allergies Allergy/AdvReac Type Severity Reaction Status Date / Time No Known Allergies Allergy Verified 10/27/18 16:56 Physical Exam - Constitutional Appears: Well - Head Exam Head Exam: ATRAUMATIC, NORMAL INSPECTION, NORMOCEPHALIC - Eye Exam Eye Exam: EOMI, Normal appearance, PERRL Pupil Exam: NORMAL ACCOMODATION, PERRL - ENT Exam ENT Exam: Mucous Membranes Moist, Normal Exam - Neck Exam Neck exam: Positive for: Normal Inspection - Respiratory Exam Respiratory Exam: Decreased Breath Sounds - Cardiovascular Exam Cardiovascular Exam: REGULAR RHYTHM, +S1, +S2 - GI/Abdominal Exam GI & Abdominal Exam: Diminished Bowel Sounds, Soft - Rectal Exam Rectal Exam: Deferred - Neurological Exam Neurological exam: Oriented x3 Results - Vital Signs Recent Vital Signs: Last Vital Signs Temp 98.4 F 01/06/19 11:45 Pulse 84 01/06/19 14:02 Resp 12 01/06/19 14:02 BP 99/64 L 01/06/19 14:02 Pulse Ox 95 01/06/19 14:02 - Labs Result Diagrams: 01/08/19 06:19 01/08/19 06:19 Labs: Laboratory Results - last 24 hr 01/06/19 01/06/19 01/06/19 12:33 12:33 13:21 WBC 6.9 D RBC 2.49 L Hgb 8.0 L Hct 24.6 L MCV 98.8 MCH 32.1 H MCHC 32.5 L RDW 18.8 H Plt Count 405 H D MPV 9.8 Neut % (Auto) 67.0 Lymph % (Auto) 24.0 [place] % (Auto) 6.0 Eos % (Auto) 2.0 Baso % (Auto) 1.0 Neut # (Auto) 4.6 Lymph # (Auto) 1.7 [place] # (Auto) 0.4 Eos # (Auto) 0.1 Baso # (Auto) 0.1 Sodium 141 Potassium 4.3 Chloride 101 Carbon Dioxide 28 Anion Gap 17 BUN 9 Creatinine 0.6 L Est GFR ( Amer) > 60 Est GFR (Non-Af Amer) > 60 Random Glucose 105 D Calcium 9.9 Total Bilirubin 0.6 AST 51 H D ALT 8 L D Alkaline Phosphatase 46 Troponin I < 0.0120 Total Protein 10.0 H Albumin 4.4 Globulin 5.5 H Albumin/Globulin Ratio 0.8 L Urine Color Urine Clarity Urine pH Ur Specific [place] Urine Protein Urine Glucose (UA) Urine Ketones Urine Blood Urine Nitrate Urine Bilirubin Urine Urobilinogen Ur Leukocyte Esterase Urine WBC (Auto) Urine RBC (Auto) Ur Squamous Epith Cells Urine Methadone Screen Ur Barbiturates Screen Ur Phencyclidine Scrn Ur Amphetamines Screen U Benzodiazepines Scrn U Oth Cocaine Metabols U Cannabinoids Screen Blood Type A NEGATIVE Antibody Screen Positive 01/06/19 01/06/19 13:41 13:41 WBC RBC Hgb Hct MCV MCH MCHC RDW Plt Count MPV Neut % (Auto) Lymph % (Auto) [place] % (Auto) Eos % (Auto) Baso % (Auto) Neut # (Auto) Lymph # (Auto) [place] # (Auto) Eos # (Auto) Baso # (Auto) Sodium Potassium Chloride Carbon Dioxide Anion Gap BUN Creatinine Est GFR ( Amer) Est GFR (Non-Af Amer) Random Glucose Calcium Total Bilirubin AST ALT Alkaline Phosphatase Troponin I Total Protein Albumin Globulin Albumin/Globulin Ratio Urine Color Yellow Urine Clarity Clear Urine pH 7.0 Ur Specific [place] 1.009 Urine Protein Negative Urine Glucose (UA) Normal Urine Ketones Negative Urine Blood Negative Urine Nitrate Negative Urine Bilirubin Negative Urine Urobilinogen Normal Ur Leukocyte Esterase Neg Urine WBC (Auto) 2 Urine RBC (Auto) 1 Ur Squamous Epith Cells 1 Urine Methadone Screen Negative Ur Barbiturates Screen Negative Ur Phencyclidine Scrn Negative Ur Amphetamines Screen Negative U Benzodiazepines Scrn Negative U Oth Cocaine Metabols Negative U Cannabinoids Screen Negative Blood Type Antibody Screen Assessment & Plan (1) Abnormal gamma globulin level Status: Acute (2) Acute chest syndrome due to sickle cell crisis Status: Acute (3) Anemia Status: Acute (4) Hip pain Status: Acute (5) Leukocytosis Status: Acute (6) Pneumonia Status: Acute (7) Sickle cell crisis Status: Acute (8) Sickle cell disease Status: Acute (9) Sickle cell pain crisis Status: Acute (10) Symptomatic anemia Status: Acute - Assessment and Plan (Free Text) Plan: Plan troponin normal BUN 9 creatinine 0.6 hemoglobin 8.0 and hematocrit 24.6 WBC 6.9 Case discussed with ER attending IV fluid Oxygen Folic acid Hydroxyurea Methotrexate Fentanyl Percocet IV fluid Morphine Namenda Make milk of magnesia Hydroxyurea Aricept Vitamin C Senokot we will transfuse the patient will admit the patient's for further PRBCs trnasfusion
[2019-01-06 15:01] LABS: OPIATES, UR POSITIVE (NEGATIVE)
[2019-01-06] MEDS ORDERED: Magnesium Hydroxide Susp 30 ml UD PO PRN (17:04)
[2019-01-07] MEDS: Oxycodone/Acetaminophen 5/325 mg Tab PO PRN ×2 (01:05→17:28)
[2019-01-07 07:34] LABS: HEMOGLOBIN 7.3 g/dL (11.0-16.0); MEAN CELL VOLUME 99.8 fL (81.0-99.0); MEAN CORPUSCULAR HEMOGLOBIN 31.8 pg (27.0-31.0); MEAN CORPUSCULAR HGB CONC 31.9 g/dL (33.0-37.0); MEAN PLATELET VOLUME 9.1 fL (7.2-11.7); RBC 2.29 Mil/uL (3.80-5.20); RED CELL DISTRIBUTION WIDTH 18.6 % (11.5-14.5); WHITE BLOOD COUNT 5.2 K/uL (4.8-10.8)
[2019-01-07 08:13] LABS: ALB/GLOB RATIO 0.9 (1.0-2.1); ALBUMIN 3.9 g/dL (3.5-5.0); ALT/SGPT 12 U/L (9-52); AST/SGOT 32 U/L (14-36); BLOOD UREA NITROGEN 15 mg/dL (7-17); CALCIUM 9.4 mg/dl (8.6-10.4); GFR NON-AFRICAN AMERICAN > 60
[2019-01-07 08:48] LABS: LYMPH # 1.3 K/uL (1.0-4.3); NEUT # 2.9 K/uL (1.8-7.0)
[2019-01-07] MEDS: Morphine 30 mg SR Tab PO SCH ×2 (09:26→21:30)
[2019-01-07 16:50] VITALS: RESP 20
--- NOTE | 2019-01-07 20:16 | CP.PCM.PN ---
Subjective - Date & Time of Evaluation Date of Evaluation: 01/07/19 Time of Evaluation: 10:43 - Subjective Subjective: patient seen today at bedside no nausea no vomitng no dizziness no shortness of breath no diarrhea no fever Objective - Vital Signs/Intake and Output Vital Signs (last 24 hours): Temp Pulse Resp BP Pulse Ox 98.5 F 96 H 20 96/62 L 100 01/07/19 16:46 01/07/19 16:46 01/07/19 16:46 01/07/19 16:46 01/07/19 16:46 - Medications Medications: Current Medications Acetaminophen (Tylenol 325mg Tab) 650 mg PO Q4 PRN PRN Reason: Pain, Mild (1-3) Ascorbic Acid (Vitamin C 500 Mg Tab) 500 mg PO DAILY [facility] Last Admin: 01/07/19 09:26 Dose: 500 mg Donepezil HCl (Aricept) 10 mg PO HS [facility] Last Admin: 01/06/19 21:58 Dose: 10 mg Fentanyl (Duragesic) 1 patch TD Q72H [facility] Folic Acid (Folic Acid) 1 mg PO DAILY [facility] Last Admin: 01/07/19 09:27 Dose: 1 mg Hydroxyurea (Hydrea) 1,000 mg PO DAILY [facility] Last Admin: 01/07/19 09:27 Dose: 1,000 mg Magnesium Hydroxide (Milk Of Magnesia) 30 ml PO DAILY PRN PRN Reason: GI distress Memantine (Namenda) 10 mg PO BID [facility] Last Admin: 01/07/19 17:24 Dose: 10 mg Methotrexate (Methotrexate) 15 mg PO QWK [facility] Morphine Sulfate (Morphine Extended Release Tab) 60 mg PO Q12 [facility] Last Admin: 01/07/19 09:26 Dose: 60 mg Oxycodone/Acetaminophen (Percocet 5/325 Mg Tab) 2 tab PO Q6 PRN PRN Reason: Pain, severe (8-10) Stop: 01/10/19 00:16 Last Admin: 01/07/19 17:28 Dose: 2 tab Sennosides (Senokot Tab) 8.6 mg PO HS [facility] Last Admin: 01/06/19 21:58 Dose: 8.6 mg - Labs Labs: 01/07/19 07:04 01/07/19 07:04 - Constitutional Appears: Well - Head Exam Head Exam: ATRAUMATIC, NORMAL INSPECTION, NORMOCEPHALIC - Eye Exam Eye Exam: EOMI, Normal appearance, PERRL Pupil Exam: NORMAL ACCOMODATION, PERRL - ENT Exam ENT Exam: Mucous Membranes Moist, Normal Exam - Neck Exam Neck Exam: Full ROM, Normal Inspection. absent: Lymphadenopathy - Respiratory Exam Respiratory Exam: Decreased Breath Sounds - Cardiovascular Exam Cardiovascular Exam: REGULAR RHYTHM, +S1, +S2 - GI/Abdominal Exam GI & Abdominal Exam: Soft, Diminished Bowel Sounds - Rectal Exam Rectal Exam: Deferred - Neurological Exam Neurological Exam: Oriented x3 Assessment and Plan (1) Abnormal gamma globulin level Status: Acute (2) Acute chest syndrome due to sickle cell crisis Status: Acute (3) Anemia Status: Acute (4) Hip pain Status: Acute (5) Leukocytosis Status: Acute (6) Pneumonia Status: Acute (7) Sickle cell crisis Status: Acute (8) Sickle cell disease Status: Acute (9) Sickle cell pain crisis Status: Acute (10) Symptomatic anemia Status: Acute - Assessment and Plan (Free Text) Plan: plan discussed with patient and staff moderate complexity of care medications reviewed aricept duragesic folic acid hydrea methotrexate milk of magnesia morphine ER namenda percocet senokot tab vitamin c tab labs and vitals reviewed For PRBCs Discussed with the staff
[2019-01-08] MEDS: Oxycodone/Acetaminophen 5/325 mg Tab PO PRN (01:55)
[2019-01-08 06:29] LABS: HEMOGLOBIN 9.1 g/dL (11.0-16.0); MEAN CELL VOLUME 95.7 fL (81.0-99.0); MEAN CORPUSCULAR HEMOGLOBIN 31.7 pg (27.0-31.0); MEAN CORPUSCULAR HGB CONC 33.1 g/dL (33.0-37.0); MEAN PLATELET VOLUME 9.5 fL (7.2-11.7); PLATELET COUNT 311 K/uL (130-400); RBC 2.89 Mil/uL (3.80-5.20); RED CELL DISTRIBUTION WIDTH 18.5 % (11.5-14.5); WHITE BLOOD COUNT 5.9 K/uL (4.8-10.8)
[2019-01-08 07:12] LABS: ALB/GLOB RATIO 0.9 (1.0-2.1); ALBUMIN 3.8 g/dL (3.5-5.0); ALT/SGPT 11 U/L (9-52); AST/SGOT 29 U/L (14-36); BLOOD UREA NITROGEN 13 mg/dL (7-17); CALCIUM 9.2 mg/dl (8.6-10.4); GFR NON-AFRICAN AMERICAN > 60
[2019-01-08] MEDS: Morphine 30 mg SR Tab PO SCH ×2 (10:07→21:22)
[2019-01-08 11:49] LABS: LYMPH # 2.1 K/uL (1.0-4.3); MONO # 0.8 K/uL (0.0-0.8)
[2019-01-08 11:50] LABS: EOS # 0.1 K/uL (0.0-0.7); NRBC % 121.2 % (0.0-2.0)
--- NOTE | 2019-01-08 14:56 | CP.PCM.PN ---
Subjective - Date & Time of Evaluation Date of Evaluation: 01/08/19 Time of Evaluation: 09:02 - Subjective Subjective: patient seen today no fever no diarrhea no vomiting no dizziness no nausea no shortness of breath Objective - Vital Signs/Intake and Output Vital Signs (last 24 hours): Temp Pulse Resp BP Pulse Ox 98.8 F 90 20 99/68 L 100 01/08/19 07:42 01/08/19 07:42 01/08/19 07:42 01/08/19 07:42 01/08/19 12:00 Intake and Output: 01/08/19 01/08/19 06:59 18:59 Intake Total 675 300 Output Total 300 400 Balance 375 -100 - Medications Medications: Current Medications Acetaminophen (Tylenol 325mg Tab) 650 mg PO Q4 PRN PRN Reason: Pain, Mild (1-3) Ascorbic Acid (Vitamin C 500 Mg Tab) 500 mg PO DAILY [facility] Last Admin: 01/08/19 11:03 Dose: 500 mg Donepezil HCl (Aricept) 10 mg PO [facility] Last Admin: 01/07/19 21:30 Dose: 10 mg Fentanyl (Duragesic) 1 patch TD Q72H [facility] Folic Acid (Folic Acid) 1 mg PO DAILY [facility] Last Admin: 01/08/19 10:08 Dose: 1 mg Hydroxyurea (Hydrea) 1,000 mg PO DAILY [facility] Last Admin: 01/08/19 10:08 Dose: 1,000 mg Magnesium Hydroxide (Milk Of Magnesia) 30 ml PO DAILY PRN PRN Reason: GI distress Memantine (Namenda) 10 mg PO BID [facility] Last Admin: 01/08/19 10:08 Dose: 10 mg Methotrexate (Methotrexate) 15 mg PO QWK [facility] Last Admin: 01/08/19 10:08 Dose: 15 mg Morphine Sulfate (Morphine Extended Release Tab) 60 mg PO Q12 [facility] Last Admin: 01/08/19 10:07 Dose: 60 mg Oxycodone/Acetaminophen (Percocet 5/325 Mg Tab) 2 tab PO Q6 PRN PRN Reason: Pain, severe (8-10) Stop: 01/10/19 00:16 Last Admin: 01/08/19 01:55 Dose: 2 tab Sennosides (Senokot Tab) 8.6 mg PO [facility] Last Admin: 01/07/19 21:30 Dose: 8.6 mg - Labs Labs: 01/08/19 06:19 01/08/19 06:19 - Constitutional Appears: Well - Head Exam Head Exam: ATRAUMATIC, NORMAL INSPECTION, NORMOCEPHALIC - Eye Exam Eye Exam: EOMI, Normal appearance, PERRL Pupil Exam: NORMAL ACCOMODATION, PERRL - ENT Exam ENT Exam: Mucous Membranes Moist, Normal Exam - Neck Exam Neck Exam: Full ROM, Normal Inspection. absent: Lymphadenopathy - Respiratory Exam Respiratory Exam: Decreased Breath Sounds - Cardiovascular Exam Cardiovascular Exam: REGULAR RHYTHM, +S1, +S2 - GI/Abdominal Exam GI & Abdominal Exam: Soft, Diminished Bowel Sounds - Rectal Exam Rectal Exam: Deferred - Neurological Exam Neurological Exam: Oriented x3 Assessment and Plan (1) Abnormal gamma globulin level Status: Acute (2) Acute chest syndrome due to sickle cell crisis Status: Acute (3) Anemia Status: Acute (4) Hip pain Status: Acute (5) Sickle cell crisis Status: Acute (6) Sickle cell disease Status: Acute (7) Sickle cell pain crisis Status: Acute (8) Symptomatic anemia Status: Acute - Assessment and Plan (Free Text) Plan: plan discussed with patient moderate complexity of care medications reviewed aricept duragesic folic acid hydrea methotrexate milk of magnesia morphine ER namenda percocet senokot tab vitamin c tab labs and vitals reviewed Hemoglobin is 9.1 posttransfusion Hematocrit 27.6 BUN 30 Creatinine 0.7 Potassium is 4.2 Discharge planning Discussed with the staff
--- NOTE | 2019-01-08 16:29 | CP.PCM.PN ---
Subjective - Date & Time of Evaluation Date of Evaluation: 01/08/19 Time of Evaluation: 16:29 - Subjective Subjective: alert, oriented, denies pain or distress. Objective - Vital Signs/Intake and Output Vital Signs (last 24 hours): Temp Pulse Resp BP Pulse Ox 98.6 F 81 20 100/66 98 01/08/19 15:00 01/08/19 15:00 01/08/19 15:00 01/08/19 15:00 01/08/19 15:00 Intake and Output: 01/08/19 01/08/19 06:59 18:59 Intake Total 675 300 Output Total 300 400 Balance 375 -100 - Medications Medications: Current Medications Acetaminophen (Tylenol 325mg Tab) 650 mg PO Q4 PRN PRN Reason: Pain, Mild (1-3) Ascorbic Acid (Vitamin C 500 Mg Tab) 500 mg PO DAILY [facility] Last Admin: 01/08/19 11:03 Dose: 500 mg Donepezil HCl (Aricept) 10 mg PO HS [facility] Last Admin: 01/07/19 21:30 Dose: 10 mg Fentanyl (Duragesic) 1 patch TD Q72H [facility] Folic Acid (Folic Acid) 1 mg PO DAILY [facility] Last Admin: 01/08/19 10:08 Dose: 1 mg Hydroxyurea (Hydrea) 1,000 mg PO DAILY [facility] Last Admin: 01/08/19 10:08 Dose: 1,000 mg Magnesium Hydroxide (Milk Of Magnesia) 30 ml PO DAILY PRN PRN Reason: GI distress Memantine (Namenda) 10 mg PO BID [facility] Last Admin: 01/08/19 10:08 Dose: 10 mg Methotrexate (Methotrexate) 15 mg PO QWK [facility] Last Admin: 01/08/19 10:08 Dose: 15 mg Morphine Sulfate (Morphine Extended Release Tab) 60 mg PO Q12 [facility] Last Admin: 01/08/19 10:07 Dose: 60 mg Oxycodone/Acetaminophen (Percocet 5/325 Mg Tab) 2 tab PO Q6 PRN PRN Reason: Pain, severe (8-10) Stop: 01/10/19 00:16 Last Admin: 01/08/19 01:55 Dose: 2 tab Sennosides (Senokot Tab) 8.6 mg PO [facility] Last Admin: 01/07/19 21:30 Dose: 8.6 mg - Labs Labs: 01/08/19 06:19 01/08/19 06:19 Assessment and Plan - Assessment and Plan (Free Text) Assessment: 48 year old female admitted from [facility] with symptomatic anemia, seen and examined. Alert and orientedx3, hemoglobin today is 9.1. Discussed with with DR Danya Daugherty, plan to discharge back to custodial with previous medications.
[2019-01-09] MEDS: Morphine 30 mg SR Tab PO SCH (09:39)
--- NOTE | 2019-01-09 15:40 | CP.PCM.PN ---
Subjective - Date & Time of Evaluation Date of Evaluation: 01/09/19 Time of Evaluation: 11:36 - Subjective Subjective: patient examined today no nausea no vomitng no dizziness no diarrhea no fever no shortness of breath Objective - Vital Signs/Intake and Output Vital Signs (last 24 hours): Temp Pulse Resp BP Pulse Ox 98 F 90 20 98/62 L 98 01/09/19 08:00 01/09/19 08:00 01/09/19 08:00 01/09/19 08:00 01/09/19 14:15 Intake and Output: 01/09/19 01/09/19 06:59 18:59 Intake Total 350 400 Output Total 400 800 Balance -50 -400 - Medications Medications: Current Medications Acetaminophen (Tylenol 325mg Tab) 650 mg PO Q4 PRN PRN Reason: Pain, Mild (1-3) Ascorbic Acid (Vitamin C 500 Mg Tab) 500 mg PO DAILY [facility] Last Admin: 01/09/19 09:40 Dose: 500 mg Donepezil HCl (Aricept) 10 mg PO HS [facility] Last Admin: 01/08/19 21:22 Dose: 10 mg Fentanyl (Duragesic) 1 patch TD Q72H [facility] Last Admin: 01/08/19 18:24 Dose: Not Given Folic Acid (Folic Acid) 1 mg PO DAILY [facility] Last Admin: 01/09/19 09:40 Dose: 1 mg Hydroxyurea (Hydrea) 1,000 mg PO DAILY [facility] Last Admin: 01/09/19 09:40 Dose: 1,000 mg Magnesium Hydroxide (Milk Of Magnesia) 30 ml PO DAILY PRN PRN Reason: GI distress Memantine (Namenda) 10 mg PO BID [facility] Last Admin: 01/09/19 09:40 Dose: 10 mg Methotrexate (Methotrexate) 15 mg PO QWK [facility] Last Admin: 01/08/19 10:08 Dose: 15 mg Morphine Sulfate (Morphine Extended Release Tab) 60 mg PO Q12 [facility] Last Admin: 01/09/19 09:39 Dose: 60 mg Oxycodone/Acetaminophen (Percocet 5/325 Mg Tab) 2 tab PO Q6 PRN PRN Reason: Pain, severe (8-10) Stop: 01/10/19 00:16 Last Admin: 01/08/19 01:55 Dose: 2 tab Sennosides (Senokot Tab) 8.6 mg PO HS [facility] Last Admin: 01/08/19 21:22 Dose: 8.6 mg - Labs Labs: 01/08/19 06:19 01/08/19 06:19 - Constitutional Appears: Well - Head Exam Head Exam: ATRAUMATIC, NORMAL INSPECTION, NORMOCEPHALIC - Eye Exam Eye Exam: EOMI, Normal appearance, PERRL Pupil Exam: NORMAL ACCOMODATION, PERRL - ENT Exam ENT Exam: Mucous Membranes Moist, Normal Exam - Neck Exam Neck Exam: Full ROM, Normal Inspection. absent: Lymphadenopathy - Respiratory Exam Respiratory Exam: Decreased Breath Sounds - Cardiovascular Exam Cardiovascular Exam: REGULAR RHYTHM, +S1, +S2 - GI/Abdominal Exam GI & Abdominal Exam: Soft, Diminished Bowel Sounds - Rectal Exam Rectal Exam: Deferred - Neurological Exam Neurological Exam: Oriented x3 Assessment and Plan (1) Abnormal gamma globulin level Status: Acute (2) Acute chest syndrome due to sickle cell crisis Status: Acute (3) Anemia Status: Acute (4) Hip pain Status: Acute (5) Leukocytosis Status: Acute (6) Pneumonia Status: Acute (7) Sickle cell crisis Status: Acute (8) Sickle cell disease Status: Acute (9) Sickle cell pain crisis Status: Acute (10) Symptomatic anemia Status: Acute - Assessment and Plan (Free Text) Plan: plan discussed with patient moderate complexity of care medications reviewed aricept duragesic folic acid hydrea methotrexate milk of magnesia morphine ER namenda percocet senokot tab vitamin c tab labs and vitals reviewed for discharge undesrstood
[2019-01-09 16:13] VITALS: BP 99/66; PULSE 80; TEMP 98.8; O2SAT 100
--- NOTE | 2019-01-12 10:20 | CP.PCM.DIS ---
Provider - Provider Date of Admission: 01/06/19 13:48 Attending physician: Meg Martinez MD Consults: 01/06/19 17:09 Wound Care [Nursing Referral for Wound Care] Routine Comment: Physician Instructions: Reason For Exam: sacral wound Time Spent in preparation of Discharge (in minutes): 20 Hospital Course - Lab Results Lab Results: Most Recent Lab Values WBC 5.9 K/uL (4.8-10.8) 01/08/19 06:19 RBC 2.89 Mil/uL (3.80-5.20) L 01/08/19 06:19 Hgb 9.1 g/dL (11.0-16.0) L 01/08/19 06:19 Hct 27.6 % (34.0-47.0) L 01/08/19 06:19 MCV 95.7 fL (81.0-99.0) D 01/08/19 06:19 MCH 31.7 pg (27.0-31.0) H 01/08/19 06:19 MCHC 33.1 g/dL (33.0-37.0) 01/08/19 06:19 RDW 18.5 % (11.5-14.5) H 01/08/19 06:19 Plt Count 311 K/uL (130-400) 01/08/19 06:19 MPV 9.5 fL (7.2-11.7) 01/08/19 06:19 Neut % (Auto) 49.0 % (50.0-75.0) L 01/08/19 06:19 Lymph % (Auto) 36.0 % (20.0-40.0) 01/08/19 06:19 [place] % (Auto) 13.0 % (0.0-10.0) H 01/08/19 06:19 Eos % (Auto) 2.0 % (0.0-4.0) 01/08/19 06:19 Baso % (Auto) 0.0 % (0.0-2.0) 01/07/19 07:04 Neut # (Auto) 29.0 K/uL (1.8-7.0) H 01/08/19 06:19 Lymph # (Auto) 2.1 K/uL (1.0-4.3) 01/08/19 06:19 [place] # (Auto) 0.8 K/uL (0.0-0.8) 01/08/19 06:19 Eos # (Auto) 0.1 K/uL (0.0-0.7) 01/08/19 06:19 Baso # (Auto) 0.0 K/uL (0.0-0.2) 01/08/19 06:19 Sodium 138 mmol/L (132-148) 01/08/19 06:19 Potassium 4.2 mmol/L (3.6-5.2) 01/08/19 06:19 Chloride 103 mmol/L (98-107) 01/08/19 06:19 Carbon Dioxide 27 mmol/L (22-30) 01/08/19 06:19 Anion Gap 12 (10-20) 01/08/19 06:19 BUN 13 mg/dL (7-17) 01/08/19 06:19 Creatinine 0.7 mg/dL (0.7-1.2) 01/08/19 06:19 Est GFR ( Amer) > 60 01/08/19 06:19 Est GFR (Non-Af Amer) > 60 01/08/19 06:19 Random Glucose 88 mg/dL (65-105) 01/08/19 06:19 Calcium 9.2 mg/dl (8.6-10.4) 01/08/19 06:19 Total Bilirubin 0.8 mg/dL (0.2-1.3) 01/08/19 06:19 AST 29 U/L (14-36) 01/08/19 06:19 ALT 11 U/L (9-52) 01/08/19 06:19 Alkaline Phosphatase 42 U/L (38-126) 01/08/19 06:19 Troponin I < 0.0120 ng/mL (0.00-0.120) 01/06/19 12:33 Total Protein 8.1 g/dL (6.3-8.3) 01/08/19 06:19 Albumin 3.8 g/dL (3.5-5.0) 01/08/19 06:19 Globulin 4.3 gm/dL (2.2-3.9) H 01/08/19 06:19 Albumin/Globulin Ratio 0.9 (1.0-2.1) L 01/08/19 06:19 Urine Color Yellow (YELLOW) 01/06/19 13:41 Urine Clarity Clear (Clear) 01/06/19 13:41 Urine pH 7.0 (5.0-8.0) 01/06/19 13:41 Ur Specific [place] 1.009 (1.003-1.030) 01/06/19 13:41 Urine Protein Negative mg/dL (NEGATIVE) 01/06/19 13:41 Urine Glucose (UA) Normal mg/dL (Normal) 01/06/19 13:41 Urine Ketones Negative mg/dL (NEGATIVE) 01/06/19 13:41 Urine Blood Negative (NEGATIVE) 01/06/19 13:41 Urine Nitrate Negative (NEGATIVE) 01/06/19 13:41 Urine Bilirubin Negative (NEGATIVE) 01/06/19 13:41 Urine Urobilinogen Normal mg/dL (0.2-1.0) 01/06/19 13:41 Ur Leukocyte Esterase Neg Maisha/uL (Negative) 01/06/19 13:41 Urine WBC (Auto) 2 /hpf (0-5) 01/06/19 13:41 Urine RBC (Auto) 1 /hpf (0-3) 01/06/19 13:41 Ur Squamous Epith Cells 1 /hpf (0-5) 01/06/19 13:41 Urine Opiates Screen Positive (NEGATIVE) H 01/06/19 13:41 Urine Methadone Screen Negative (NEGATIVE) 01/06/19 13:41 Ur Barbiturates Screen Negative (NEGATIVE) 01/06/19 13:41 Ur Phencyclidine Scrn Negative (NEGATIVE) 01/06/19 13:41 Ur Amphetamines Screen Negative (NEGATIVE) 01/06/19 13:41 U Benzodiazepines Scrn Negative (NEGATIVE) 01/06/19 13:41 U Oth Cocaine Metabols Negative (NEGATIVE) 01/06/19 13:41 U Cannabinoids Screen Negative (NEGATIVE) 01/06/19 13:41 Blood Type A NEGATIVE 01/06/19 13:21 Antibody Screen Positive 01/06/19 13:21 Antibody Identification Anti C Anti D 01/06/19 13:21 Antibody Identification Anti C Anti D 01/06/19 13:21 Antigen Identification Cancelled 01/06/19 13:21 - Hospital Course Hospital Course: Patient's admitted with history of sickle cell disease chronic anemia was sent from the hospital with a hemoglobin of 6.7 with some pain in the legs as well as pain in the back patient is severely demented she has a history of forgetful although patient understands patient is requires pain medications eventually patient is admitted received the pain medicine patient received the blood transfusion received hydroxyurea received Namenda and received methotrexate received morphine sulfate and received Percocet Senokot Donepezil . Duragesic patch Hemoglobin was 7.3 which went up to 9.1 after receiving PRBCs eventually patient decided to discharge for further work-up with the wound care and rehab patient understood and patient is discharged plan discussed with patient moderate complexity of care medications reviewed aricept duragesic folic acid hydrea methotrexate milk of magnesia morphine ER namenda percocet senokot tab vitamin c tab labs and vitals reviewed Discharge Exam - Head Exam Head Exam: ATRAUMATIC, NORMAL INSPECTION, NORMOCEPHALIC - Eye Exam Eye Exam: EOMI, Normal appearance, PERRL Pupil Exam: NORMAL ACCOMODATION, PERRL - ENT Exam ENT Exam: Normal Exam - Neck Exam Neck exam: Full Rom - Respiratory Exam Respiratory Exam: Accessory Muscle Use, Decreased Breath Sounds, NORMAL BREATHING PATTERN - Cardiovascular Exam Cardiovascular Exam: REGULAR RHYTHM, +S1, +S2 - GI/Abdominal Exam GI & Abdominal Exam: Distended, Soft - Rectal Exam Rectal Exam: Deferred Discharge Plan - Follow Up Plan Condition: GUARDED Disposition: REHAB FACILITY/REHAB UNIT Instructions: Anemia Caused by Low Iron, Adult (DC) Additional Instructions: DISCHARGE BACK TO [facility] PER DR MEG MARTINEZ CONTINUE WITH PRESENT MEDICATIONS PT/OT TOLERATED
== END 2019-01-09 17:20 ==
LOC: C.ER 11:37 → C.3T 13:48
PROVIDERS: ADMIT Internal Medicine Nephrology; ATTEND Internal Medicine Nephrology
DX: D57.01 Hb-SS disease with acute chest syndrome (principal); F03.90 Unspecified dementia, unspecified severity, without behavioral disturbance, psychotic disturbance, mood disturbance, and anxiety; I10 Essential (primary) hypertension; K21.9 Gastro-esophageal reflux disease without esophagitis; Z86.73 Personal history of transient ischemic attack (TIA), and cerebral infarction without residual deficits; Z87.01 Personal history of pneumonia (recurrent); Z87.891 Personal history of nicotine dependence; R53.81 Other malaise; D63.8 Anemia in other chronic diseases classified elsewhere
CPT/HCPCS: 36415; 36430; 36592; 80053; 80324; 80345; 80346; 80349; 80353; 80358; 80361; 81001; 83992; 84484; 85025; 86850; 86870; 86900; 86905; 86920; 86922; 97163; 97530; 99285; G0378; G8981; G8982; J8610; P9051